=== PATIENT | female | born 1990 | race African-American/Black ===

== ENCOUNTER 2017-07-02 14:35 | Emergency (ER) | payer OTHER ==
[2017-07-02 15:01] VITALS: RESP 20
--- NOTE | 2017-07-02 15:31 | XR ---
EXAMINATION TYPE: XR chest 2V DATE OF EXAM: 07/02/2017 COMPARISON: 08/28/2015 TECHNIQUE: PA and lateral views submitted. HISTORY: Pain, cough and congestion FINDINGS: The lungs are clear and there is no pneumothorax, pleural effusion, or focal pneumonia. No overt fa ilure. Mild hypertrophic change of the spine. IMPRESSION: 1. No acute process.
[2017-07-02] MEDS ORDERED: IPRATROPIUM-ALBUTEROL 3 ML NEB INHALATION STA (15:41)
[2017-07-02] MEDS ORDERED: predniSONE 50 MG TAB PO STA (15:41)
[2017-07-02] MEDS ORDERED: LEVOFLOXACIN 500 MG TAB PO STA (15:41)
--- NOTE | 2017-07-02 16:00 | ED ---
URI HPI - General Chief Complaint: Upper Respiratory Infection Stated Complaint: ENT Time Seen by Provider: 07/02/17 14:49 Source: patient, RN notes reviewed, old records reviewed Mode of arrival: ambulatory Limitations: no limitations - History of Present Illness Initial Comments: This patient Is a 26-year-old female presents to the emergency department with cough and congestion sore throat for the past week. She was seen last Sunday at [facility]. She was placed on steroids at that time and inhaler. She reports that she was not getting any better. She took her last steroid yesterday. Patient states that she is having a persistent cough but is not able to bring anything up. She denies any recent fever or chills.She denies any nausea or vomiting. She was off of work for the past few days and return to work and they said her here for further evaluation. - Related Data Previous Rx's Medication Instructions Recorded Azithromycin [Zithromax Z-pack] 250 mg PO DIRECTED #6 tab 07/02/17 guaiFENesin-DM 600/30MG [Mucinex 1 each PO DAILY #20 tab.er.12h 07/02/17 Dm] predniSONE 50 mg PO DAILY #5 tablet 07/02/17 Allergies Allergy/AdvReac Type Severity Reaction Status Date / Time No Known Allergies Allergy Verified 07/02/17 14:54 Review of Systems ROS Statement: Those systems with pertinent positive or pertinent negative responses have been documented in the HPI. ROS Other: All systems not noted in ROS Statement are negative. Past Medical History Past Medical History: No Reported History History of Any Multi-Drug Resistant Organisms: None Reported Past Surgical History: Section Past Anesthesia/Blood Transfusion Reactions: No Reported Reaction Past Psychological History: No Psychological Hx Reported Smoking Status: Never smoker Past Alcohol Use History: Occasional Past Drug Use History: None Reported - Past Family History Father Family Medical History: No Reported History General Exam - General Exam Comments Initial Comments: This is a 26 year old female, no distress. Limitations: no limitations General appearance: alert, in no apparent distress Head exam: Present: atraumatic, normocephalic, normal inspection Eye exam: Present: normal appearance, PERRL, EOMI. Absent: scleral icterus, conjunctival injection, periorbital swelling ENT exam: Present: normal exam, mucous membranes moist. Absent: normal oropharynx (erythema) Neck exam: Present: normal inspection. Absent: tenderness, meningismus, lymphadenopathy Respiratory exam: Present: wheezes. Absent: normal lung sounds bilaterally, respiratory distress, rales, rhonchi, stridor Cardiovascular Exam: Present: regular rate, normal rhythm, normal heart sounds. Absent: systolic murmur, diastolic murmur, rubs, gallop, clicks GI/Abdominal exam: Present: soft, normal bowel sounds. Absent: distended, tenderness, guarding, rebound, rigid Back exam: Present: normal inspection Neurological exam: Present: alert, oriented X3, CN II-XII intact Psychiatric exam: Present: normal affect, normal mood Skin exam: Present: warm, dry, intact, normal color. Absent: rash Course Vital Signs 07/02/17 07/02/17 07/02/17 14:37 15:00 15:58 Temperature 98.3 F Pulse Rate 98 80 Respiratory 18 20 Rate Blood Pressure 145/84 O2 Sat by Pulse 98 Oximetry 07/02/17 07/02/17 16:08 16:33 Temperature 97.8 F Pulse Rate 80 107 H Respiratory 20 Rate Blood Pressure 150/82 O2 Sat by Pulse 94 L Oximetry Medical Decision Making - Medical Decision Making This patient is a 26-year-old female presents to the [facility] see department you can plan a cough. She recently finished a Medrol Dosepak. She's continuing to reason has a sore throat dude or coughing. Patient's chest x-ray was her view to normal. She was given breathing treatments in the emergency department with improvement of her wheezing. Patient will be started on Zpak for bronchitis and more steroids. Discussed she has to follow up with primary care provider. - Lab Data Lab Results 07/02/17 Range/Units 15:10 Group A Strep Rapid Negative (Negative) - Radiology Data Radiology results: report reviewed Chest x-rays were reviewed and negative for any acute process. Disposition Clinical Impression: Bronchitis Disposition: HOME SELF-CARE Condition: Good Instructions: Acute Bronchitis (ED) Additional Instructions: Patient advised to follow-up with primary care provider. Take the medication and antibiotics as prescribed. Return to emergency department if any alarming signs or symptoms occur. Prescriptions: Azithromycin [Zithromax Z-pack] 250 mg PO DIRECTED #6 tab guaiFENesin-DM 600/30MG [Mucinex Dm] 1 each PO DAILY #20 tab.er.12h predniSONE 50 mg PO DAILY #5 tablet Referrals: Taras Ratliff Jr, [Primary Care Provider] - 1-2 days Time of Disposition: 16:03
[2017-07-02 16:36] VITALS: BP 150/82; PULSE 107; TEMP 97.8
== END 2017-07-02 16:35 | disposition home or self-care (01) ==
LOC: EC 14:35
DX: J40 Bronchitis, not specified as acute or chronic (principal)
CPT/HCPCS: 99284; 94640; 87081; 87430; 71046; J7512

== ENCOUNTER 2017-11-05 19:39 | Emergency (ER) | payer OTHER ==
--- NOTE | 2017-11-05 21:49 | ED ---
Female Urogenital HPI - General Chief complaint: Urogenital Stated complaint: 6 weeks pg and spotting Time Seen by Provider: 11/05/17 21:31 Source: patient Mode of arrival: ambulatory Limitations: no limitations - History of Present Illness Initial comments: This patient is 27-year-old woman who presents to be evaluated for vaginal spotting. The patient states that she believes she is about 6 weeks now. She states she was at work this evening and noted that she had some spotting. She also has a little bit of suprapubic dull pain or pressure. It is constant. She has not noted worsening or relieving factors. MD Complaint: vaginal bleeding Onset/Timin -: hour(s) Location: suprapubic Radiation: non-radiating Severity: mild Quality: dull Consistency: constant Improves with: none Worsens with: none Patient : Yes Number of weeks : 6 Associated Symptoms: vaginal bleeding - Related Data Sexually active: Yes : 4 Para: 2 A: 1 Home Medications Medication Instructions Recorded Confirmed No Known Home Medications 11/05/17 11/05/17 Allergies Allergy/AdvReac Type Severity Reaction Status Date / Time No Known Allergies Allergy Verified 11/05/17 21:30 Review of Systems ROS Statement: Those systems with pertinent positive or pertinent negative responses have been documented in the HPI. ROS Other: All systems not noted in ROS Statement are negative. Constitutional: Denies: fever, chills Respiratory: Denies: cough, dyspnea Cardiovascular: Denies: chest pain, palpitations, edema, syncope Gastrointestinal: Reports: as per HPI, abdominal pain. Denies: nausea, vomiting Genitourinary: Reports: as per HPI, other (Vaginal spotting). Denies: dysuria, hematuria, discharge Musculoskeletal: Denies: back pain Skin: Denies: rash Hematological/Lymphatic: Denies: easy bleeding Past Medical History Past Medical History: No Reported History History of Any Multi-Drug Resistant Organisms: None Reported Past Surgical History: Section Past Anesthesia/Blood Transfusion Reactions: No Reported Reaction Past Psychological History: No Psychological Hx Reported Smoking Status: Never smoker Past Alcohol Use History: Occasional Past Drug Use History: None Reported - Past Family History Father Family Medical History: No Reported History General Exam Limitations: no limitations General appearance: alert, in no apparent distress, obese Head exam: Present: atraumatic, normocephalic Eye exam: Present: normal appearance Respiratory exam: Present: normal lung sounds bilaterally. Absent: respiratory distress, wheezes, rales, rhonchi, stridor Cardiovascular Exam: Present: regular rate, normal rhythm, normal heart sounds. Absent: systolic murmur, diastolic murmur, rubs, gallop GI/Abdominal exam: Present: soft. Absent: distended, tenderness, guarding, rebound, rigid, mass, pulsatile mass, hernia Extremities exam: Present: normal inspection, normal capillary refill. Absent: pedal edema, calf tenderness Back exam: Absent: CVA tenderness (R), CVA tenderness (L) Neurological exam: Present: alert Skin exam: Present: warm, dry, intact, normal color. Absent: rash Course Vital Signs 11/05/17 19:51 Temperature 98.3 F Pulse Rate 87 Respiratory 16 Rate Blood Pressure 135/95 O2 Sat by Pulse 99 Oximetry Medical Decision Making - Lab Data Lab Results 11/05/17 Range/Units 21:54 HCG, Quant 2551.9 mIU/mL Disposition Clinical Impression: Threatened Disposition: HOME SELF-CARE Condition: Good Instructions: Threatened Miscarriage (ED) Additional Instructions: Your hCG level today was 2551. As we discussed follow-up to have this rechecked. If there is any difficulty return here. Is patient prescribed a controlled substance at d/c from ED?: No Referrals: Taras Ratliff Jr, DO [Primary Care Provider] - 1-2 days Surinder West MD [STAFF PHYSICIAN] - 1-2 days
--- NOTE | 2017-11-05 23:06 | US ---
EXAMINATION TYPE: Transabdominal DATE OF EXAM: 07/03/17 COMPARISON: NONE CLINICAL HISTORY: bleeding. Spotting EXAM PERFORMED: Transvaginal (TV) and Transabdominal (TA) EXAM MEASUREMENTS: GESTATIONAL AGE / DATING Physician Established: Not yet established Dates by LMP: (5 weeks/6 days) EDC: 07/02/2018 Dates by First Scan: No previous this is first scan Dates by Current Scan for: No IUP seen at this time MATERNAL ANATOMY Uterus: 8.3 x 5.2 x 6.7 cm Right Ovary: 3.6 x 2.3 x 3.0 cm Post CDS / Adnexa: wnl Presence of free fluid: no Presence of corpus luteal cyst: no GESTATION / SURVEY IUP: No IUP seen at this time findings could relate to incomplete and blood clot filling th e endometrial cavity. Beta HcG (if available): 2551.9 No IUP seen at this time. Thickened endometrium with some free fluid measuring 2.65 cm. No gestationa l sac seen. IMPRESSION: Increased echogenicity within the endometrial cavity measures 2.6 cm. It is not clear if this is endo metrial thickening.. No gestational sac. No adnexal mass. Cul-de-sac is clear. This appearance could relate to incomplete .
[2017-11-06 00:08] VITALS: BP 130/74; PULSE 82; RESP 18; TEMP 98.6
== END 2017-11-06 00:08 | disposition home or self-care (01) ==
LOC: EC 19:39
DX: O20.0 Threatened abortion (principal); Z3A.01 Less than 8 weeks gestation of pregnancy
CPT/HCPCS: 36415; 76801; 76817; 84702; 99284

== ENCOUNTER 2017-11-08 07:43 | Emergency (ER) | payer OTHER ==
[2017-11-08 07:48] VITALS: TEMP 98.8
--- NOTE | 2017-11-08 08:00 | ED ---
Female Urogenital HPI - General Chief complaint: Vaginal Bleeding Stated complaint: 6 WEEKS PREG AND SPOTTING Time Seen by Provider: 11/08/17 07:49 Source: patient, RN notes reviewed, old records reviewed Mode of arrival: ambulatory Limitations: no limitations - History of Present Illness Initial comments: Patient is 27-year-old female, Patient presents emergency department today with chief complaint of vaginal spotting. Patient states that she had some spotting 2 days ago seen in the emergency department. Possibly 6 weeks . HCG level is 2500 at time. Patient was told to come here if she continue to have some bleeding or spotting. She reports that today she woke up and had a montiel of blood occur. She states that she's had no further bleeding or spotting at this time. Patient states that she does not have an ANALYTICAL LEAD at this time. She denies any recent fevers or chills, she denies any abdominal pain, chest pain, shortness of breath. - Related Data Home Medications Medication Instructions Recorded Confirmed Pnv No.95/Ferrous Fum/Folic AC 1 tab PO DAILY 11/08/17 11/08/17 [ Multivitamin Tablet] Allergies Allergy/AdvReac Type Severity Reaction Status Date / Time No Known Allergies Allergy Verified 11/08/17 08:56 Review of Systems ROS Statement: Those systems with pertinent positive or pertinent negative responses have been documented in the HPI. ROS Other: All systems not noted in ROS Statement are negative. Past Medical History Past Medical History: No Reported History History of Any Multi-Drug Resistant Organisms: None Reported Past Surgical History: Section Additional Past Surgical History / Comment(s): c/s x2 Past Anesthesia/Blood Transfusion Reactions: No Reported Reaction Past Psychological History: No Psychological Hx Reported Smoking Status: Never smoker Past Alcohol Use History: Occasional Past Drug Use History: None Reported - Past Family History Father Family Medical History: No Reported History General Exam - General Exam Comments Initial Comments: 27-year-old female. Alert and oriented. No acute distress. Limitations: no limitations General appearance: alert, in no apparent distress Head exam: Present: atraumatic, normocephalic, normal inspection Eye exam: Present: normal appearance, PERRL, EOMI. Absent: scleral icterus, conjunctival injection, periorbital swelling ENT exam: Present: normal exam, mucous membranes moist Neck exam: Present: normal inspection. Absent: tenderness, meningismus, lymphadenopathy Respiratory exam: Present: normal lung sounds bilaterally. Absent: respiratory distress, wheezes, rales, rhonchi, stridor Cardiovascular Exam: Present: regular rate, normal rhythm, normal heart sounds. Absent: systolic murmur, diastolic murmur, rubs, gallop, clicks Extremities exam: Present: normal inspection, full ROM, normal capillary refill. Absent: tenderness, pedal edema, joint swelling, calf tenderness Back exam: Present: normal inspection Neurological exam: Present: alert, oriented X3, CN II-XII intact Psychiatric exam: Present: normal affect, normal mood Skin exam: Present: warm, dry, intact, normal color. Absent: rash Course Vital Signs 11/08/17 07:45 Temperature 98.8 F Pulse Rate 96 Respiratory 16 Rate Blood Pressure 125/89 O2 Sat by Pulse 100 Oximetry Medical Decision Making - Medical Decision Making -year-old female presents emergency department today with chief complaint of vaginal bleeding. She was seen 2 days ago. Her hCG at that time was 2500. Today we repeated 6500. She did complain of some increased bleeding today but now to slow down. She denies any pain. She has no tenderness over abdomen superior pubic area. With the hCG going up we did repeat the ultrasound today concerned with her bleeding. There is evidence of fluid collection without pole or yolk sac. Could represent early however just additional sac of an ectopic pregnancies possible. Recommend correlation with hCG. There is also a large fluid collection which was representing subchorionic hemorrhage. Recommend repeat ultrasound in 7-10 days. Patient informed of these results. I discussed everything with Dr. Bowman, recommended Patient can follow up outpatient only. Did not contact her ANALYTICAL LEAD at this time. Recommended at this time continuing pelvic rest, repeat hCG. Patient can have this hCG and follow-up with ANALYTICAL LEAD. - Lab Data Lab Results 11/08/17 11/08/17 11/08/17 Range/Units 08:00 08:00 08:30 HCG, Quant 6340.5 mIU/mL Urine Color Yellow Urine Appearance Clear (Clear) Urine pH 6.0 (5.0-8.0) Ur Specific Theodore 1.021 (1.001-1.035) Urine Protein Trace H (Negative) Urine Glucose (UA) Negative (Negative) Urine Ketones Negative (Negative) Urine Blood Moderate H (Negative) Urine Nitrite Negative (Negative) Urine Bilirubin Negative (Negative) Urine Urobilinogen <2.0 (<2.0) mg/dL Ur Leukocyte Esterase Negative (Negative) Urine RBC 2 (0-5) /hpf Urine WBC 1 (0-5) /hpf Ur Squamous Epith Cells 4 (0-4) /hpf Blood Type AB Positive Blood Type Recheck No - Radiology Data Radiology results: report reviewed Small intrauterine fluid collection polar sac. Present early . However pseudo-gestational sac of ectopic is also possible. Correlate with serum hCG is recommended. Additionally a large J-shaped heterogeneous complex fluid collection measuring larger than suspected gestational sac possibly representing subchronic hemorrhage measuring 2.9 cm. Repeat pelvic ultrasound in 7-10 days. Disposition Clinical Impression: Threatened Disposition: HOME SELF-CARE Condition: Good Instructions: Threatened Miscarriage (ED) Additional Instructions: Patient should repeat hCG levels in 2 days. I repeat an ultrasound in approximately 10 days. Return to the emergency department if any alarming signs or symptoms occur. Patient is to follow-up with PCP and ANALYTICAL LEAD. Is patient prescribed a controlled substance at d/c from ED?: No Referrals: Taras Ratliff Jr, DO [Primary Care Provider] - 1-2 days Time of Disposition: 10:23
[2017-11-08 08:41] LABS: Appearance,Urine Clear (Clear); Bilirubin,Urine Negative (Negative); Blood,Urine Moderate (Negative); Color,Urine Yellow; Glucose,Urine (UA) Negative (Negative); Ketones,Urine Negative (Negative); Leukocyte Esterase,Urine Negative (Negative); Nitrite,Urine Negative (Negative); Protein,Urine Trace (Negative); RBC,Urine 2 /hpf (0-5); Specific Gravity,Urine 1.021 (1.001-1.035); Squamous Epithelial Cell,Urine 4 /hpf (0-4); Urobilinogen,Urine <2.0 mg/dL (<2.0); WBC,Urine 1 /hpf (0-5)
--- NOTE | 2017-11-08 10:13 | US ---
EXAMINATION TYPE: Transabdominal DATE OF EXAM: 07/03/17 COMPARISON: US 3 days prior CLINICAL HISTORY: Pain. Vaginal bleeding EXAM PERFORMED: Transvaginal (TV) and Transabdominal (TA) EXAM MEASUREMENTS: GESTATIONAL AGE / DATING Physician Established: Not yet established Dates by LMP: (6 weeks/1 days) EDC: 07/03/18 Dates by First Scan: Unable to date by prior study Dates by Current Scan for: Unable to date by today's study MATERNAL ANATOMY Uterus: 8.7 x 4.9 x 5.1cm Right Ovary: 2.8 x 2.6 x 2.1cm Left Ovary: 3.5 x 1.6 x 1.5cm Post CDS / Adnexa: wnl Presence of free fluid: very small amount in cul de sac GESTATION / SURVEY IUP: No IUP seen at this time Date of LMP: 09/26/17 Beta HcG (if available): 6340 Patient of large body habitus. There is a heterogeneous area adjacent to sac measuring 2.4 x 1.9 x 2.9 cm, possible implantation hem orrhage/subchorionic hemorrhage IMPRESSION: 1. Small intramural endometrial fluid collection without pole or yolk sac. This could represent early , however pseudogestational sac of ectopic is also possible. Correlation wi th serum beta-hCG levels is recommended. Additionally there is a large adjacent heterogenous complex fluid collection measuring larger than the suspected gestational sac possibly representing a subchori onic hemorrhage (measuring up to 2.9 cm). Repeat pelvic ultrasound is recommended in 7-10 days.
[2017-11-08 10:24] VITALS: BP 139/86; PULSE 78; RESP 20
== END 2017-11-08 10:30 | disposition home or self-care (01) ==
LOC: EC 07:43
DX: O20.0 Threatened abortion (principal); Z3A.01 Less than 8 weeks gestation of pregnancy
CPT/HCPCS: 36415; 76801; 76817; 81001; 84702; 86900; 86901; 99284

== ENCOUNTER → 2017-11-10 | Outpatient (CLI) | payer OTHER | END | disposition home or self-care (01) | LOC: LABWHC1 10:14 | PROVIDERS: ATTEND Physician Assistant Medical | DX: O20.0 Threatened abortion (principal); Z3A.00 Weeks of gestation of pregnancy not specified | CPT/HCPCS: 36415; 84702 ==

== ENCOUNTER 2017-11-12 04:40 | Emergency (ER) | payer OTHER ==
[2017-11-12 04:50] VITALS: RESP 18
[2017-11-12 05:48] LABS: Basophils % (A) 0 %; Eosinophils # (A) 0.4 k/uL (0-0.7); Eosinophils % (A) 4 %; HCT 35.6 % (34.0-46.0); HGB 11.4 gm/dL (11.4-16.0); Lymphocytes % (A) 33 %; MCH 24.4 pg (25.0-35.0); MCHC 31.9 g/dL (31.0-37.0); MCV 76.3 fL (80.0-100.0); Mean Platelet Volume 8.5; Microcytosis Slight; Monocytes # (A) 0.6 k/uL (0-1.0); Monocytes % (A) 7 %; Neutrophils # (A) 4.9 k/uL (1.3-7.7); Neutrophils % (A) 54 %; Platelet Count 306 k/uL (150-450); RBC 4.66 m/uL (3.80-5.40); RDW 15.6 % (11.5-15.5); WBC 9.1 k/uL (3.8-10.6)
[2017-11-12 05:59] LABS: ALT 32 U/L (9-52); AST 28 U/L (14-36); Albumin 3.6 g/dL (3.5-5.0); Alkaline Phosphatase 42 U/L (38-126); Anion Gap 9 mmol/L; Blood Urea Nitrogen 8 mg/dL (7-17); Calcium 9.1 mg/dL (8.4-10.2); Carbon Dioxide 18 mmol/L (22-30); Chloride 111 mmol/L (98-107); Glucose 128 mg/dL (74-99); Sodium 138 mmol/L (137-145); Total Bilirubin 0.3 mg/dL (0.2-1.3); Total Protein 6.6 g/dL (6.3-8.2)
[2017-11-12 06:05] LABS: Potassium 4.5 mmol/L (3.5-5.1)
--- NOTE | 2017-11-12 06:06 | US ---
DATE OF EXAM: 07/03/17 COMPARISON: US 2017 CLINICAL HISTORY: pain. Spotting again today EXAM PERFORMED: Transvaginal (TV) and Transabdominal (TA) EXAM MEASUREMENTS: GESTATIONAL AGE / DATING Physician Established: Not established yet Dates by LMP: (6 weeks/5 days) EDC: 07/03/2018 Dates by First Scan: Unable to date Dates by Current Scan for: By gestational sac (5 weeks/2 days) EDC: 07/13/2018 MATERNAL ANATOMY Uterus: 9.2 x 4.4 x 6.2cm, anteverted Right Ovary: 3.8 x 2.1 x 2.2 cm Left Ovary: 3.6 x 1.9 x 2.0 cm Post CDS / Adnexa: small amount of free fluid seen in posterior cul de sac Presence of free fluid: yes Presence of corpus luteal cyst: not seen Presence of subchorionic bleed: 3.8 x 1.4 x 2.9 cm complex area adjacent to gestational sac, possible subchorionic bleed GESTATION / SURVEY No pole seen at this time MSD: 1.1cm (5 weeks/2 days) Yolk Sac (normal less than 6mm): 3.4mm Date of LMP: 09/26/2017 Beta HcG (if available): Not available at time of exam IMPRESSION: 1. Gestation sac and yolk sac with an estimated gestation age of 5 weeks and 2 days. No pole likely secondary to early gestation. 2. Small subchorionic hemorrhage.
[2017-11-12 06:18] LABS: Appearance,Urine Clear (Clear); Bilirubin,Urine Negative (Negative); Blood,Urine Moderate (Negative); Color,Urine Yellow; Glucose,Urine (UA) Negative (Negative); Ketones,Urine Negative (Negative); Leukocyte Esterase,Urine Negative (Negative); Mucus,Urine Rare /hpf; Nitrite,Urine Negative (Negative); Protein,Urine Negative (Negative); RBC,Urine <1 /hpf (0-5); Specific Gravity,Urine 1.018 (1.001-1.035); Squamous Epithelial Cell,Urine 1 /hpf (0-4); Urobilinogen,Urine <2.0 mg/dL (<2.0); WBC,Urine 1 /hpf (0-5)
--- NOTE | 2017-11-12 06:40 | ED ---
General Adult HPI - General Chief complaint: Vaginal Bleeding Stated complaint: Vaginal Bleeding, 7wks pgt Time Seen by Provider: 11/12/17 04:52 Source: patient Mode of arrival: ambulatory Limitations: no limitations - History of Present Illness Initial comments: Joanna is a female at approximately 7 weeks gestation based on last menstrual period who presents to the emergency department today for evaluation of vaginal bleeding. Patient reports that she developed some spotting without any cramping or pelvic discomfort last week, she was valuate in the emergency department where ultrasound revealed a gestational sac with no pole noted. This was related to very early gestation. Patient followed up for repeat beta hCG on Sunday and noted that her hCG was increasing appropriately. Patient reports that this morning she had passed a large clot prompted her to come to the ER for reevaluation. Patient denies any chest pain, palpitations, lightheadedness. She has no known bleeding disorder. - Related Data Home Medications Medication Instructions Recorded Confirmed Pnv No.95/Ferrous Fum/Folic AC 1 tab PO DAILY 11/08/17 11/08/17 [ Multivitamin Tablet] Allergies Allergy/AdvReac Type Severity Reaction Status Date / Time No Known Allergies Allergy Verified 11/12/17 04:50 Review of Systems ROS Statement: Those systems with pertinent positive or pertinent negative responses have been documented in the HPI. ROS Other: All systems not noted in ROS Statement are negative. Past Medical History Past Medical History: No Reported History History of Any Multi-Drug Resistant Organisms: None Reported Past Surgical History: Section Additional Past Surgical History / Comment(s): c/s x2 Past Anesthesia/Blood Transfusion Reactions: No Reported Reaction Past Psychological History: No Psychological Hx Reported Smoking Status: Never smoker Past Alcohol Use History: Occasional Past Drug Use History: None Reported - Past Family History Father Family Medical History: No Reported History General Exam Limitations: no limitations General appearance: alert, in no apparent distress Head exam: Present: atraumatic, normocephalic Eye exam: Present: normal appearance, PERRL ENT exam: Present: normal exam Neck exam: Present: normal inspection Respiratory exam: Absent: respiratory distress, wheezes Cardiovascular Exam: Present: regular rate GI/Abdominal exam: Present: soft, normal bowel sounds. Absent: distended, tenderness, guarding, rebound, rigid Rectal exam: Present: deferred External exam: Present: normal external exam Speculum exam: Present: vaginal bleeding (Dark blood at the cervical os, cervical os is closed). Absent: vaginal discharge, foreign body, tissue, laceration Extremities exam: Present: normal inspection, full ROM. Absent: pedal edema Neurological exam: Present: alert, oriented X3 Psychiatric exam: Present: normal affect, normal mood Skin exam: Present: warm, dry, intact Course Vital Signs 11/12/17 11/12/17 04:47 07:01 Temperature 98.6 F 98 F Pulse Rate 85 81 Respiratory 18 18 Rate Blood Pressure 114/75 107/58 O2 Sat by Pulse 100 98 Oximetry Medical Decision Making - Medical Decision Making Patient was seen and evaluated, labs and imaging were ordered Labs are unremarkable Urinalysis and no evidence of urinary tract infection Ultrasound reveals a single intrauterine gestational sac with a pole at about 5 weeks gestation HCG is increasing appropriately I discussed with the patient the importance of pelvic rest. Follow up with OB. Return to the ED if she develops any significant vaginal bleeding, soaking more than 1 pad an hour for 3 consecutive hours. Passes any large clots or has any significant pain or develops any chest pain, palpitations, lightheadedness feeling like she is given a pass out or any new or concerning symptoms. All questions pertaining care were answered the best my ability patient discharged home - Lab Data Result diagrams: 11/12/17 05:30 11/12/17 05:30 Lab Results 11/12/17 11/12/17 11/12/17 Range/Units 05:30 05:30 05:40 WBC 9.1 (3.8-10.6) k/uL RBC 4.66 (3.80-5.40) m/uL Hgb 11.4 (11.4-16.0) gm/dL Hct 35.6 (34.0-46.0) % MCV 76.3 L (80.0-100.0) fL MCH 24.4 L (25.0-35.0) pg MCHC 31.9 (31.0-37.0) g/dL RDW 15.6 H (11.5-15.5) % Plt Count 306 (150-450) k/uL Neutrophils % 54 % Lymphocytes % 33 % Monocytes % 7 % Eosinophils % 4 % Basophils % 0 % Neutrophils # 4.9 (1.3-7.7) k/uL Lymphocytes # 3.0 (1.0-4.8) k/uL Monocytes # 0.6 (0-1.0) k/uL Eosinophils # 0.4 (0-0.7) k/uL Basophils # 0.0 (0-0.2) k/uL Microcytosis Slight Sodium 138 (137-145) mmol/L Potassium 4.5 (3.5-5.1) mmol/L Chloride 111 H (98-107) mmol/L Carbon Dioxide 18 L (22-30) mmol/L Anion Gap 9 mmol/L BUN 8 (7-17) mg/dL Creatinine 0.60 (0.52-1.04) mg/dL Est GFR (CKD-EPI)AfAm >90 (>60 ml/min/1.73 sqM) Est GFR (CKD-EPI)NonAf >90 (>60 ml/min/1.73 sqM) Glucose 128 H (74-99) mg/dL Calcium 9.1 (8.4-10.2) mg/dL Total Bilirubin 0.3 (0.2-1.3) mg/dL AST 28 (14-36) U/L ALT 32 (9-52) U/L Alkaline Phosphatase 42 (38-126) U/L Total Protein 6.6 (6.3-8.2) g/dL Albumin 3.6 (3.5-5.0) g/dL HCG, Quant 62370.7 mIU/mL Urine Color Yellow Urine Appearance Clear (Clear) Urine pH 6.0 (5.0-8.0) Ur Specific [place] 1.018 (1.001-1.035) Urine Protein Negative (Negative) Urine Glucose (UA) Negative (Negative) Urine Ketones Negative (Negative) Urine Blood Moderate H (Negative) Urine Nitrite Negative (Negative) Urine Bilirubin Negative (Negative) Urine Urobilinogen <2.0 (<2.0) mg/dL Ur Leukocyte Esterase Negative (Negative) Urine RBC <1 (0-5) /hpf Urine WBC 1 (0-5) /hpf Ur Squamous Epith Cells 1 (0-4) /hpf Urine Mucus Rare H (None) /hpf Disposition Clinical Impression: Vaginal bleeding in patient at less than 20 weeks gestation Disposition: HOME SELF-CARE Condition: Good Instructions: Threatened Miscarriage (ED) Additional Instructions: Into new pelvic rest until you follow up with OB Is patient prescribed a controlled substance at d/c from ED?: No Referrals: Taras Ratliff Jr, DO [Primary Care Provider] - 1-2 days Johanne Archer DO [Doctor of Osteopathic Medicine] - 1-2 days Time of Disposition: 06:42
[2017-11-12 07:00] LABS: HCG,Quantitative Serum 17253.7 mIU/mL
[2017-11-12 07:02] VITALS: BP 107/58; PULSE 81; TEMP 98
== END 2017-11-12 07:01 | disposition home or self-care (01) ==
LOC: EC 04:40
DX: O20.9 Hemorrhage in early pregnancy, unspecified (principal); Z3A.01 Less than 8 weeks gestation of pregnancy; Z98.890 Other specified postprocedural states
CPT/HCPCS: 36415; 76801; 76817; 80053; 81001; 84702; 85025; 87086; 99284

== ENCOUNTER → 2017-11-20 | Outpatient (CLI) | payer OTHER ==
--- NOTE | 2017-11-20 17:53 | US ---
EXAMINATION TYPE: Transabdominal DATE OF EXAM: 07/03/17 COMPARISON: US dated 11/12/2017 CLINICAL HISTORY: Z36 FOLLOW UP PREV ABN ULTRASOUND. EXAM PERFORMED: Transvaginal (TV) and Transabdominal (TA), endovaginal ultrasound scanning performed for better evaluation of the uterus EXAM MEASUREMENTS: GESTATIONAL AGE / DATING Physician Established: Not yet established Dates by LMP: LMP unknown Dates by First Scan: unable to date by previous studies Dates by Current Scan for: 0.6 ( 6 weeks/3 days) EDC: 07/13/17 MATERNAL ANATOMY Uterus: 10.0 x 5.3 x 6.4cm Right Ovary: Not visualized Left Ovary: Not visualized Post CDS / Adnexa: wnl Presence of free fluid: no Presence of subchorionic bleed: 3.2 x 2.5 x 2.0 previously 3.8 x 1.4 x 3 cm GESTATION / SURVEY CRL: 0.6 ( 6 weeks/3 days) Yolk Sac (normal less than 6mm): Heart Rate: 171 bpm Rhythm: Normal IUP: Viable IUP Nuchal Translucency 10-14wks (normal less than 3mm): 2mm Beta HcG (if available): Not available at this time Patient of large body habitus. IMPRESSION: Measurements of the subchorionic hemorrhage are slightly reduced in size compared to previous exam al though there are differences in technique. Single viable intrauterine corresponding to ultr asound age 6 weeks 3 days with estimated date of delivery 07/13/2017 by today's exam.
== END ==
LOC: RADUSWWP 15:02
PROVIDERS: ATTEND Obstetrics & Gynecology
DX: O28.3 Abnormal ultrasonic finding on antenatal screening of mother (principal); Z3A.01 Less than 8 weeks gestation of pregnancy
CPT/HCPCS: 76801; 76817

== ENCOUNTER 2018-06-02 20:20 | Outpatient (CLI) | payer OTHER ==
[2018-06-02 21:21] LABS: Amorphous Sediment,Urine Occasional /hpf; Appearance,Urine Cloudy (Clear); Bilirubin,Urine Negative (Negative); Blood,Urine Negative (Negative); Color,Urine Yellow; Glucose,Urine (UA) Negative (Negative); Hyaline Casts,Urine 1 /lpf (0-2); Ketones,Urine Trace (Negative); Leukocyte Esterase,Urine Negative (Negative); Mucus,Urine Rare /hpf; Nitrite,Urine Negative (Negative); PH, Urine 6.5 (5.0-8.0); Protein,Urine 2+ (Negative); RBC,Urine 1 /hpf (0-5); Specific Gravity,Urine 1.012 (1.001-1.035); Squamous Epithelial Cell,Urine 3 /hpf (0-4); Urobilinogen,Urine <2.0 mg/dL (<2.0); WBC,Urine 2 /hpf (0-5)
[2018-06-02 21:22] LABS: ALT 35 U/L (9-52); AST 37 U/L (14-36); Blood Urea Nitrogen 7 mg/dL (7-17); LDH 412 U/L (313-618); Uric Acid 6.2 mg/dL (3.7-7.4)
[2018-06-02 21:32] LABS: Anisocytosis Slight; Basophils % (A) 0 %; Eosinophils # (A) 0.1 k/uL (0-0.7); Eosinophils % (A) 1 %; HCT 34.6 % (34.0-46.0); HGB 10.8 gm/dL (11.4-16.0); Hypochromasia Marked; Lymphocytes # (A) 2.8 k/uL (1.0-4.8); Lymphocytes % (A) 37 %; MCH 22.7 pg (25.0-35.0); MCHC 31.2 g/dL (31.0-37.0); MCV 72.8 fL (80.0-100.0); Microcytosis Moderate; Monocytes # (A) 0.5 k/uL (0-1.0); Monocytes % (A) 6 %; Neutrophils # (A) 4.1 k/uL (1.3-7.7); Neutrophils % (A) 54 %; Platelet Count 204 k/uL (150-450); Poikilocytosis Slight; RBC 4.75 m/uL (3.80-5.40); RDW 16.3 % (11.5-15.5); WBC 7.6 k/uL (3.8-10.6)
[2018-06-02 22:19] VITALS: PULSE 80; RESP 16; TEMP 96.6
[2018-06-02 22:22] VITALS: BP 126/73
--- NOTE | 2018-06-06 19:16 | P.MSEPDOC ---
Presenting Problems - Arrival Data Date of Arrival on Unit: 06/02/18 Time of Arrival on Unit: 20:20 Mode of Transport: Ambulatory - Complaint OB-Reason for Admission/Chief Complaint: Pain Comment: Patient states she is having constant pain 5/10 in her vaginal area since 1500. Medical History - Information : 4 Para: 3 Term: 3 : 0 Abortions: Spontaneous or Elective: 0 Number of Living Children: 3 - Gestational Age Gestational Age by KADIE (wks/days): 35 Weeks and 4 Days - History Complications: GDM Review of Systems - Review of Systems Constitutional: No problems Breast: No problems ENT: No problems Cardiovascular: No problems Respiratory: No problems Gastrointestinal: No problems Genitourinary: No problems Musculoskeletal: No problems Neurological: No problems Skin: No problems Vital Signs - Temperature Temperature: 96.6 F Temperature Source: Temporal Artery Scan - Pulse Right Brachial Pulse Rate: 80 Pulse Assessment Method: Automatic Cuff - Respirations Respiratory Rate: 16 Oxygen Delivery Method: Room Air O2 Sat by Pulse Oximetry: 100 - Blood Pressure Right Arm Blood Pressure: 126/73 Blood Pressure Mean: 90 Blood Pressure Source: Automatic Cuff Medical Screen Scoring (Pre) - Cervical Exam Dilation: 0 cm = 0 Membranes: Intact - Uterine Contractions Frequency: N/A Duration: N/A Intensity: N/A - Maternal Vital Signs Maternal Temperature: N/A Maternal Blood Pressure: Systolic >139 = 2 Signs of Preeclampsia: N/A Maternal Respirations: N/A - Pain Assessment Pain Location and Character: Perineal Pain Scale Used: Numeric (1 - 10) Pain Intensity: 5 Pain Management Goal: 0 Pain Description: *Acute, Stabbing Pain Radiation Location: NONE Pain Frequency: Constant Pain Duration: 6 Pain Duration Units: Hours Pain Behavior: None Exhibited Pain Aggravating Factors: None - Assessment Baseline FHR: 140 Heart Rate - NICHD Category: Category I (Normal) = 0 NST: Reactive - Total Score Total Score (Pre): 2 - Level of Risk Level of Risk: Low (0-5) Physician Notification (Pre) - Physician Notified Physician Notified Date: 06/02/18 Physician Notified Time: 20:49 Physician/Practitioner Notifed:: Dr. Le Spoke With: Dr. Le New Order Received: Yes - Notification Comment Comment: H labs drawn and results read to Dr. Le. Patient to be discharged with instructions to keep followup appt with Dr. Levine 06/03/18 and MIKE 06/04/18. RN to give discharge instructions with emphasis on pre-eclampsia warning signs. Patient verbalizes understanding. Medical Screen Scoring (Post) - Cervical Exam Dilation: 0 cm = 0 Membranes: Intact - Uterine Contractions Frequency: N/A - Maternal Vital Signs Maternal Temperature: N/A Maternal Blood Pressure: N/A Signs of Preeclampsia: N/A Maternal Respirations: N/A - Pain Assessment Pain Location and Character: Perineal Pain Scale Used: Numeric (1 - 10) Pain Intensity: 5 Pain Management Goal: 0 Pain Description: Stabbing Pain Radiation Location: NONE Pain Frequency: Constant Pain Duration: 6 Pain Duration Units: Hours Pain Behavior: None Exhibited - Assessment Heart Rate: 135 Heart Rate - NICHD Category: Category I (Normal) = 0 NST: Reactive - Total Score Total Score (Post): 0 - Post Treatment Level of Risk Post Treatment Level of Risk: Low (0-5) Physician Notification (Post) - Physician Notified Physician Notified Date: 06/02/18 Physician Notified Time: 22:09 Physician/Practitioner Notified:: Dr. Le Spoke With: Dr. Le New Order Received: Yes - Notification Comment Comment: Discharge order Disposition - Disposition OB Disposition: Discharge to home Discharge Date: 06/02/18 Discharge Time: 21:58 I agree with the RN Medical Screening Exam: Yes Risk & Benefit of care provided described in d/c instruction: Yes Diagnosis: PELVIC AND PERINEAL PAIN
== END 2018-06-02 21:58 | disposition home or self-care (01) ==
LOC: FBPOP 20:20
PROVIDERS: ATTEND Obstetrics & Gynecology
DX: O99.89 Other specified diseases and conditions complicating pregnancy, childbirth and the puerperium (principal); R10.2 Pelvic and perineal pain; Z3A.35 35 weeks gestation of pregnancy
CPT/HCPCS: 59025; 82570; 84156; 82565; 83615; 84450; 84460; 84520; 84550; 85025; 81001; G0463; 99213

== ENCOUNTER 2018-06-25 12:22 | Emergency (ER) | payer OTHER ==
--- NOTE | 2018-06-25 12:56 | ED ---
General Adult HPI - General Chief complaint: Skin/Abscess/Foreign Body Stated complaint: Lump on arm from IV Time Seen by Provider: 06/25/18 12:34 Source: patient, RN notes reviewed Mode of arrival: ambulatory Limitations: no limitations - History of Present Illness Initial comments: Patient is a pleasant 27-year-old female presenting to the emergency Department with complaints of left arm discomfort. Onset of symptoms was the past day or 2. Patient states there may have been some mild symptoms prior to this. Patient states she did have an IV in this area proximal to 3 weeks ago. Patient was in the hospital at that time for . Patient denies any upper extremity problems. Area of involvement is mostly distal to the IV site. Patient states there is mild discomfort and mild swelling. No warmth or color change. No fevers. No history of similar symptoms previously. No abdominal or pelvic pain. - Related Data Home Medications Medication Instructions Recorded Confirmed No Known Home Medications 06/25/18 06/25/18 Allergies Allergy/AdvReac Type Severity Reaction Status Date / Time No Known Allergies Allergy Verified 06/25/18 13:19 Review of Systems ROS Statement: Those systems with pertinent positive or pertinent negative responses have been documented in the HPI. ROS Other: All systems not noted in ROS Statement are negative. Constitutional: Denies: fever, chills Eyes: Denies: eye pain ENT: Denies: ear pain Respiratory: Denies: cough, dyspnea Cardiovascular: Denies: chest pain Endocrine: Denies: fatigue Gastrointestinal: Denies: abdominal pain Genitourinary: Denies: dysuria Musculoskeletal: Denies: back pain Skin: Denies: rash Neurological: Denies: weakness Past Medical History Past Medical History: No Reported History Additional Past Medical History / Comment(s): pre eclampsia and gestational diabetes History of Any Multi-Drug Resistant Organisms: None Reported Past Surgical History: Section Additional Past Surgical History / Comment(s): c/s x2 Past Anesthesia/Blood Transfusion Reactions: No Reported Reaction Past Psychological History: No Psychological Hx Reported Smoking Status: Never smoker Past Alcohol Use History: None Reported Past Drug Use History: None Reported - Past Family History Father Family Medical History: No Reported History General Exam Limitations: no limitations General appearance: alert, in no apparent distress Head exam: Present: atraumatic Eye exam: Present: normal appearance, PERRL ENT exam: Present: normal oropharynx Neck exam: Present: normal inspection Respiratory exam: Present: normal lung sounds bilaterally Cardiovascular Exam: Present: regular rate, normal rhythm Expanded Peripheral pulses: 2+: Radial (L) GI/Abdominal exam: Present: soft. Absent: tenderness Extremities exam: Present: other (Left distal arm dorsal radius region with approximately 2 x 2 centimeter area of mild swelling and mild tenderness. No erythema. No warmth. Site of previous IV is proximal to this. There may be mild superficial thrombosis in this region as well.). Absent: pedal edema, calf tenderness Neurological exam: Present: alert Psychiatric exam: Present: normal affect, normal mood Skin exam: Present: normal color. Absent: rash Course Vital Signs 06/25/18 12:28 Temperature 98.6 F Pulse Rate 88 Respiratory 18 Rate Blood Pressure 126/86 O2 Sat by Pulse 100 Oximetry Medical Decision Making - Medical Decision Making Patient reevaluated and updated - Radiology Data Radiology results: report reviewed (Ultrasound negative for DVT. There is superficial thrombophlebitis.) Disposition Clinical Impression: Superficial thrombophlebitis Disposition: HOME SELF-CARE Condition: Stable Instructions (If sedation given, give patient instructions): Superficial Thrombophlebitis (ED) Additional Instructions: Warm compresses. Please follow-up with primary care physician in the next couple days for recheck. If symptoms continue consider vascular surgery consul t. Return for arm pain or arm swelling, chest pain or shortness of breath, redness, worsening or changing symptoms or other concerns. Is patient prescribed a controlled substance at d/c from ED?: No Referrals: Taras Ratliff Jr, DO [Primary Care Provider] - 1-2 days Time of Disposition: 14:55
--- NOTE | 2018-06-25 13:53 | US ---
EXAMINATION TYPE: US venous doppler duplex UE LT DATE OF EXAM: 06/25/2018 COMPARISON: NONE CLINICAL HISTORY: Pain. SIDE PERFORMED: Left Grayscale, color doppler, spectral doppler imaging performed of the deep veins of the upper extremiti es. There is normal flow, compressibility and vascular waveforms. Left Arm: Negative for DVT. IMPRESSION: No sonographic evidence of deep venous thrombosis within the left upper extremity.
--- NOTE | 2018-06-25 14:47 | US ---
EXAMINATION TYPE: US extremity nonvasc mass LT DATE OF EXAM: 06/25/2018 COMPARISON: NONE CLINICAL HISTORY: Pain. Patient has pain and swelling left anterior wrist. At this area is some superficial thrombophlebitis. IMPRESSION: Superficial thrombophlebitis. Otherwise grossly unremarkable study.
[2018-06-25 15:20] VITALS: BP 123/86; PULSE 75; RESP 16; TEMP 98.7
== END 2018-06-25 15:19 | disposition home or self-care (01) ==
LOC: EC 12:22
DX: I80.8 Phlebitis and thrombophlebitis of other sites (principal)
CPT/HCPCS: 99283

== ENCOUNTER → 2018-07-19 | Outpatient (CLI) | payer OTHER ==
[2018-07-19 17:43] LABS: Anisocytosis Slight; Basophils % (A) 0 %; Eosinophils # (A) 0.3 k/uL (0-0.7); Eosinophils % (A) 3 %; HCT 35.1 % (34.0-46.0); HGB 10.8 gm/dL (11.4-16.0); Hypochromasia Marked; Lymphocytes # (A) 3.7 k/uL (1.0-4.8); Lymphocytes % (A) 34 %; MCH 22.8 pg (25.0-35.0); MCHC 30.9 g/dL (31.0-37.0); MCV 73.9 fL (80.0-100.0); Mean Platelet Volume 8.2; Microcytosis Moderate; Monocytes # (A) 0.7 k/uL (0-1.0); Monocytes % (A) 6 %; Neutrophils % (A) 54 %; Platelet Count 331 k/uL (150-450); RBC 4.75 m/uL (3.80-5.40); RDW 16.5 % (11.5-15.5); WBC 11.1 k/uL (3.8-10.6)
== END | disposition home or self-care (01) ==
LOC: LABPAT 09:48
PROVIDERS: ATTEND Obstetrics & Gynecology
DX: Z01.812 Encounter for preprocedural laboratory examination (principal)
CPT/HCPCS: 36415; 85025

== ENCOUNTER 2018-08-12 09:22 | Emergency (ER) | payer OTHER ==
[2018-08-12 09:31] VITALS: BP 115/67; PULSE 104; RESP 20; TEMP 98.8
--- NOTE | 2018-08-12 09:59 | ED ---
Skin/Abscess/FB HPI - General Chief complaint: Skin/Abscess/Foreign Body Stated complaint: Breast pain Time Seen by Provider: 08/12/18 09:43 Source: patient, RN notes reviewed Mode of arrival: ambulatory Limitations: no limitations - History of Present Illness Initial comments: 27-year-old female presents emergency Department with chief complaint of left wrist pain. Patient states started slightly on as worse in the last 24 hours. Patient states she has redness and swelling to her left breast. She is not exposed department has been breast-feeding and has recently started using her pump more. Patient states that she's never had any like this in the past with her prior pregnancies and breast-feeding in the past. Patient reports no fevers or chills. Patient offers no other complaints. - Related Data Home Medications Medication Instructions Recorded Confirmed Ibuprofen [Motrin Ib] 200 mg PO Q6H PRN 08/12/18 08/12/18 Norethindrone [Nadine] 0.35 mg PO HS 08/12/18 08/12/18 Previous Rx's Medication Instructions Recorded Cephalexin [Keflex] 500 mg PO Q6HR #28 cap 08/12/18 Allergies Allergy/AdvReac Type Severity Reaction Status Date / Time No Known Allergies Allergy Verified 08/12/18 09:46 Review of Systems ROS Statement: Those systems with pertinent positive or pertinent negative responses have been documented in the HPI. ROS Other: All systems not noted in ROS Statement are negative. Past Medical History Past Medical History: No Reported History Additional Past Medical History / Comment(s): pre eclampsia and gestational diabetes History of Any Multi-Drug Resistant Organisms: None Reported Past Surgical History: Section Additional Past Surgical History / Comment(s): c/s x3 Past Anesthesia/Blood Transfusion Reactions: No Reported Reaction Past Psychological History: No Psychological Hx Reported Smoking Status: Never smoker Past Alcohol Use History: None Reported Past Drug Use History: None Reported - Past Family History Father Family Medical History: No Reported History General Exam Limitations: no limitations General appearance: alert, in no apparent distress Head exam: Present: atraumatic, normocephalic, normal inspection Neck exam: Present: normal inspection, full ROM. Absent: tenderness, meningismus, lymphadenopathy Respiratory exam: Present: normal lung sounds bilaterally. Absent: respiratory distress, wheezes, rales, rhonchi, stridor Cardiovascular Exam: Present: regular rate, normal rhythm, normal heart sounds. Absent: systolic murmur, diastolic murmur, rubs, gallop, clicks Skin exam: Present: warm, dry, intact, normal color, other (Left breast there is tenderness from the 11th o'clock to 9 o'clock position mild erythema and warmth no discrete mass noted). Absent: rash Course Vital Signs 08/12/18 09:28 Temperature 98.8 F Pulse Rate 104 H Respiratory 20 Rate Blood Pressure 115/67 O2 Sat by Pulse 100 Oximetry Medical Decision Making - Medical Decision Making 27-year-old female presented for left breast pain. Patient has mastitis. 2 breast feeding. There is a concern for possible staph infection will be started on Keflex and continue warm compresses, anti-inflammatories and frequent pumping or feeding Disposition Clinical Impression: Mastitis Disposition: HOME SELF-CARE Condition: Stable Instructions (If sedation given, give patient instructions): Mastitis (ED) Additional Instructions: Please return to the Emergency Department if symptoms worsen or any other concerns. Prescriptions: Cephalexin [Keflex] 500 mg PO Q6HR #28 cap Is patient prescribed a controlled substance at d/c from ED?: No Referrals: Taras Ratliff Jr, [Primary Care Provider] - 1-2 days Time of Disposition: 09:58
== END 2018-08-12 10:10 | disposition home or self-care (01) ==
LOC: EC 09:22
DX: N61.0 Mastitis without abscess (principal); Z79.3 Long term (current) use of hormonal contraceptives
CPT/HCPCS: 99283

== ENCOUNTER 2019-03-19 08:31 | Emergency (ER) | payer OTHER ==
[2019-03-19] MEDS ORDERED: ONDANSETRON 4 MG/2 ML VIAL IVP STA (08:49)
[2019-03-19] MEDS ORDERED: SODIUM CHLORIDE 0.9% 2,000 ML IV STA (08:49)
[2019-03-19 09:57] LABS: Basophils # (A) 0.2 k/uL (0-0.2); Basophils % (A) 2 %; Eosinophils # (A) 0.1 k/uL (0-0.7); Eosinophils % (A) 1 %; HGB 12.1 gm/dL (11.4-16.0); Lymphocytes # (A) 0.8 k/uL (1.0-4.8); Lymphocytes % (A) 10 %; MCH 25.6 pg (25.0-35.0); MCHC 31.8 g/dL (31.0-37.0); MCV 80.7 fL (80.0-100.0); Mean Platelet Volume 8.6; Monocytes # (A) 0.3 k/uL (0-1.0); Monocytes % (A) 4 %; Neutrophils # (A) 6.8 k/uL (1.3-7.7); Neutrophils % (A) 82 %; Platelet Count 266 k/uL (150-450); RBC 4.71 m/uL (3.80-5.40); RDW 14.4 % (11.5-15.5); WBC 8.3 k/uL (3.8-10.6)
--- NOTE | 2019-03-19 10:04 | XR ---
EXAMINATION TYPE: XR chest 2V DATE OF EXAM: 03/19/2019 COMPARISON: Chest x-ray July 02, 2017. HISTORY: Persistent cough. TECHNIQUE: Frontal and lateral views of the chest are obtained. FINDINGS: There is no focal air space opacity, pleural effusion, or pneumothorax seen. The cardiac silhouette size is within normal limits. The osseous structures are intact. IMPRESSION: No suspicious acute pulmonary process.
[2019-03-19 10:07] LABS: Albumin 3.7 g/dL (3.5-5.0); Calcium 8.9 mg/dL (8.4-10.2); Potassium 3.9 mmol/L (3.5-5.1); Total Bilirubin 0.7 mg/dL (0.2-1.3); Total Protein 7.1 g/dL (6.3-8.2)
[2019-03-19] MEDS ORDERED: IPRATROPIUM-ALBUTEROL 3 ML NEB INHALATION STA (10:36)
[2019-03-19] MEDS ORDERED: IBUPROFEN 600 MG TAB PO STA (10:36)
[2019-03-19 11:20] LABS: Appearance,Urine Clear (Clear); Bilirubin,Urine Negative (Negative); Blood,Urine Negative (Negative); Color,Urine Light Yellow; Glucose,Urine (UA) Negative (Negative); Ketones,Urine Negative (Negative); Leukocyte Esterase,Urine Negative (Negative); Nitrite,Urine Negative (Negative); PH, Urine 6.5 (5.0-8.0); Protein,Urine Negative (Negative); Specific Gravity,Urine 1.008 (1.001-1.035); Urobilinogen,Urine <2.0 mg/dL (<2.0)
[2019-03-19] MEDS ORDERED: cefTRIAXone IN SWFI 1,000 MG/10 ML SYRINGE IVP STA (11:25)
--- NOTE | 2019-03-19 11:27 | ED ---
Nausea/Vomiting/Diarrhea HPI - General Chief complaint: Nausea/Vomiting/Diarrhea Stated complaint: fever, cough, diarrhea Time Seen by Provider: 03/19/19 08:35 Source: patient Mode of arrival: ambulatory Limitations: no limitations - History of Present Illness Initial comments: The patient is a 28-year-old female with no past nuchal history who presents to the emergency room with reported nausea vomiting and diarrhea. She reports that her symptoms started last night. She had nausea with multiple episodes of nonbilious nonbloody vomiting. States that she cannot hold down any water. She also had multiple episodes of nonbilious, nonbloody diarrhea. Denies any recent antibiotic use or travel. Denies hematochezia or melanotic stools. No fevers or chills. 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 She is familiar with C. diff and states that she has no foul-smelling diarrhea. No contact with any patients with C. diff. She denies any abdominal pain. No abnormal vaginal bleeding or discharge. No concern for . Denies any dysuria, hematuria or difficulty voiding. Patient does admit to chills. She has had a nonproductive cough with wheezing. The symptoms have been present for the past 3 days. She has not taken any medications at home for her symptoms. She denies any headaches or visual changes. No chest pain or shortness of breath. Denies any back or flank pain. There are no alleviating, precipitating or modifying fac tors - Related Data Home Medications Medication Instructions Recorded Confirmed Norethindrone-E.estradiol-Iron 1 tab PO HS 03/19/19 03/19/19 [Loestrin Fe 1-20 Tablet] Previous Rx's Medication Instructions Recorded Albuterol Sulfate [Proair Hfa] 1 - 2 puff INHALATION Q4HR PRN #1 03/19/19 inhaler Azithromycin [Zithromax Z-pack] 250 mg PO DIRECTED #1 pack 03/19/19 Ondansetron Odt [Zofran Odt] 4 mg PO Q8HR PRN #15 tab 03/19/19 Allergies Allergy/AdvReac Type Severity Reaction Status Date / Time No Known Allergies Allergy Verified 03/19/19 10:34 Review of Systems ROS Statement: Those systems with pertinent positive or pertinent negative responses have been documented in the HPI. ROS Other: All systems not noted in ROS Statement are negative. Past Medical History Past Medical History: No Reported History Additional Past Medical History / Comment(s): pre eclampsia and gestational diabetes History of Any Multi-Drug Resistant Organisms: None Reported Past Surgical History: Section Additional Past Surgical History / Comment(s): c/s x3 Past Anesthesia/Blood Transfusion Reactions: No Reported Reaction Past Psychological History: No Psychological Hx Reported Smoking Status: Never smoker Past Alcohol Use History: None Reported Past Drug Use History: None Reported - Past Family History Father Family Medical History: No Reported History General Exam Limitations: no limitations Course Vital Signs 03/19/19 03/19/19 03/19/19 08:34 11:01 11:11 Temperature 102.2 F H Pulse Rate 101 H 115 H 112 H Respiratory 20 Rate Blood Pressure 130/84 O2 Sat by Pulse 100 Oximetry 03/19/19 03/19/19 11:51 12:40 Temperature 101.6 F H 99.0 F Pulse Rate 115 H 92 Respiratory 16 18 Rate Blood Pressure 121/66 127/67 O2 Sat by Pulse 97 98 Oximetry Medical Decision Making - Medical Decision Making Upon arrival the patient was placed into room 14. A thorough history and physical exam was performed. Peripheral IV is established. The patient was given 2 L of normal saline and formal grams of Zofran. I did conduct laboratory studies. The patient was given a DuoNeb breathing treatment. Laboratory studies demonstrated a normal CBC. CMP shows a creatinine of 1. Glucose 107. Urinalysis shows 7 squamous epithelial cells and some moderate mucus. Influenza a and B are negative. Chest x-ray is negative for any type of infiltrate. The patient was given Motrin after a negative test. I did reevaluate the patient and she has much improvement in her symptoms. She denies any vomiting or diarrhea since she has been in the hospital. I discussed the diagnosis, differential and treatment options. At this time the patient will be discharged home with prescriptions for an inhaler and Zofran. I also provided the patient with azithromycin because of her fevers and upper respiratory symptoms. If the patient has any new or worsening symptoms she should return to the emergency room. Follow up with her PCP in 2-4 days. The patient had her vitals obtained and were much improved upon discharge. The patient was then discharged home in stable condition - Lab Data Result diagrams: 03/19/19 09:25 03/19/19 09:25 Lab Results 03/19/19 03/19/19 03/19/19 Range/Units 09:25 09:25 09:25 WBC 8.3 (3.8-10.6) k/uL RBC 4.71 (3.80-5.40) m/uL Hgb 12.1 (11.4-16.0) gm/dL Hct 38.0 (34.0-46.0) % MCV 80.7 (80.0-100.0) fL MCH 25.6 (25.0-35.0) pg MCHC 31.8 (31.0-37.0) g/dL RDW 14.4 (11.5-15.5) % Plt Count 266 (150-450) k/uL Neutrophils % 82 % Lymphocytes % 10 % Monocytes % 4 % Eosinophils % 1 % Basophils % 2 % Neutrophils # 6.8 (1.3-7.7) k/uL Lymphocytes # 0.8 L (1.0-4.8) k/uL Monocytes # 0.3 (0-1.0) k/uL Eosinophils # 0.1 (0-0.7) k/uL Basophils # 0.2 (0-0.2) k/uL Sodium 140 (137-145) mmol/L Potassium 3.9 (3.5-5.1) mmol/L Chloride 108 H (98-107) mmol/L Carbon Dioxide 22 (22-30) mmol/L Anion Gap 10 mmol/L BUN 6 L (7-17) mg/dL Creatinine 1.05 H (0.52-1.04) mg/dL Est GFR (CKD-EPI)AfAm 85 (>60 ml/min/1.73 sqM) Est GFR (CKD-EPI)NonAf 73 (>60 ml/min/1.73 sqM) Glucose 107 H (74-99) mg/dL Plasma Lactic Acid Gabino 1.5 (0.7-2.0) mmol/L Calcium 8.9 (8.4-10.2) mg/dL Total Bilirubin 0.7 (0.2-1.3) mg/dL AST 27 (14-36) U/L ALT 29 (4-34) U/L Alkaline Phosphatase 62 (38-126) U/L Total Protein 7.1 (6.3-8.2) g/dL Albumin 3.7 (3.5-5.0) g/dL Lipase 46 (23-300) U/L HCG, Qual Urine Color Urine Appearance (Clear) Urine pH (5.0-8.0) Ur Specific Aroda (1.001-1.035) Urine Protein (Negative) Urine Glucose (UA) (Negative) Urine Ketones (Negative) Urine Blood (Negative) Urine Nitrite (Negative) Urine Bilirubin (Negative) Urine Urobilinogen (<2.0) mg/dL Ur Leukocyte Esterase (Negative) Urine WBC (0-5) /hpf Ur Squamous Epith Cells (0-4) /hpf Urine Mucus (None) /hpf Influenza Type A RNA (Not Detectd) Influenza Type B (PCR) (Not Detectd) 03/19/19 03/19/19 03/19/19 Range/Units 09:25 09:30 10:58 WBC (3.8-10.6) k/uL RBC (3.80-5.40) m/uL Hgb (11.4-16.0) gm/dL Hct (34.0-46.0) % MCV (80.0-100.0) fL MCH (25.0-35.0) pg MCHC (31.0-37.0) g/dL RDW (11.5-15.5) % Plt Count (150-450) k/uL Neutrophils % % Lymphocytes % % Monocytes % % Eosinophils % % Basophils % % Neutrophils # (1.3-7.7) k/uL Lymphocytes # (1.0-4.8) k/uL Monocytes # (0-1.0) k/uL Eosinophils # (0-0.7) k/uL Basophils # (0-0.2) k/uL Sodium (137-145) mmol/L Potassium (3.5-5.1) mmol/L Chloride (98-107) mmol/L Carbon Dioxide (22-30) mmol/L Anion Gap mmol/L BUN (7-17) mg/dL Creatinine (0.52-1.04) mg/dL Est GFR (CKD-EPI)AfAm (>60 ml/min/1.73 sqM) Est GFR (CKD-EPI)NonAf (>60 ml/min/1.73 sqM) Glucose (74-99) mg/dL Plasma Lactic Acid Gabino (0.7-2.0) mmol/L Calcium (8.4-10.2) mg/dL Total Bilirubin (0.2-1.3) mg/dL AST (14-36) U/L ALT (4-34) U/L Alkaline Phosphatase (38-126) U/L Total Protein (6.3-8.2) g/dL Albumin (3.5-5.0) g/dL Lipase (23-300) U/L HCG, Qual Not Detected Urine Color Light Yellow Urine Appearance Clear (Clear) Urine pH 6.5 (5.0-8.0) Ur Specific Aroda 1.008 (1.001-1.035) Urine Protein Negative (Negative) Urine Glucose (UA) Negative (Negative) Urine Ketones Negative (Negative) Urine Blood Negative (Negative) Urine Nitrite Negative (Negative) Urine Bilirubin Negative (Negative) Urine Urobilinogen <2.0 (<2.0) mg/dL Ur Leukocyte Esterase Negative (Negative) Urine WBC 2 (0-5) /hpf Ur Squamous Epith Cells 7 H (0-4) /hpf Urine Mucus Moderate H (None) /hpf Influenza Type A RNA Not Detected (Not Detectd) Influenza Type B (PCR) Not Detected (Not Detectd) Disposition Clinical Impression: Nausea & vomiting, Dehydration, Cough, Fever Disposition: HOME SELF-CARE Condition: Stable Instructions (If sedation given, give patient instructions): Acute Nausea and Vomiting (ED) Additional Instructions: Please follow up with the PCP in 2-4 days. Return to the ED for any new or worsening symptoms. Prescriptions: Albuterol Sulfate [Proair Hfa] 1 - 2 puff INHALATION Q4HR PRN #1 inhaler PRN Reason: difficulty in breathing Azithromycin [Zithromax Z-pack] 250 mg PO DIRECTED #1 pack Ondansetron Odt [Zofran Odt] 4 mg PO Q8HR PRN #15 tab PRN Reason: Nausea Is patient prescribed a controlled substance at d/c from ED?: No Referrals: Taras Ratliff Jr, DO [Primary Care Provider] - 1-2 days Time of Disposition: 11:51
[2019-03-19 11:30] LABS: Mucus,Urine Moderate /hpf; Squamous Epithelial Cell,Urine 7 /hpf (0-4); WBC,Urine 2 /hpf (0-5)
[2019-03-19 12:45] VITALS: BP 127/67; PULSE 92; RESP 18; TEMP 99
== END 2019-03-19 12:40 | disposition home or self-care (01) ==
LOC: EC 08:31
DX: E86.0 Dehydration (principal); R11.2 Nausea with vomiting, unspecified; R05 Cough; R50.9 Fever, unspecified; Z32.02 Encounter for pregnancy test, result negative
CPT/HCPCS: 36415; 94640; 80053; 83605; 83690; 85025; 81003; 84703; 87502; 71046; 99284; 96374; 96375; 96361 ×3; J2405; J0696

== ENCOUNTER → 2021-06-20 | Outpatient (CLI) | payer OTHER | END | disposition home or self-care (01) | LOC: LABPAT 10:02 | PROVIDERS: ATTEND Obstetrics & Gynecology | DX: Z53.9 Procedure and treatment not carried out, unspecified reason (principal) ==

== ENCOUNTER 2021-06-21 06:27 | Day surgery (SDC) | payer OTHER ==
[2021-06-17 11:07] VITALS: BMI 32.5
[~2021-06-21 06:27] MED LIST: Pre Op ABX Message 1 EACH MISC MISCELLANE ONE
[2021-06-21 07:03] LABS: Basophils # (A) 0.03 X 10*3/uL (0.00-0.10); Basophils % (A) 0.3 %; Eosinophils # (A) 0.38 X 10*3/uL (0.04-0.35); Eosinophils % (A) 4.2 %; HCT 36.8 % (37.2-46.3); HGB 11.4 g/dL (12.0-15.0); Immature Grans, Automated 0.2 %; Lymphocytes # (A) 3.25 X 10*3/uL (0.90-5.00); Lymphocytes % (A) 36.1 %; MCH 26.3 pg (27.0-32.0); MCV 84.8 fL (80.0-97.0); Mean Platelet Volume 11.3 fL (9.5-12.2); Monocytes # (A) 0.55 X 10*3/uL (0.20-1.00); Monocytes % (A) 6.1 %; NRBC Per 100 WBC 0 /100 WBCS (0.0-0.0); Neutrophils # (A) 4.78 X 10*3/uL (1.80-7.70); Neutrophils % (A) 53.1 %; Platelet Count 267 X 10*3/uL (140-440); RBC 4.34 X 10*6/uL (4.10-5.20); RDW 14.5 % (11.5-14.5); WBC 9.01 X 10*3/uL (4.50-10.00)
[2021-06-21] MEDS ORDERED: HYDROmorphone 0.5 MG/0.5 ML SYRINGE IVP PRN (07:04)
[2021-06-21] MEDS ORDERED: DEXAMETHASONE SOD PHOSPHATE 4 MG/ML 1 ML VIAL IV ONE (07:04)
[2021-06-21] MEDS ORDERED: SCOPOLAMINE 1.5MG/72HR PATCH TRANSDERM ONE (07:04)
[2021-06-21] MEDS ORDERED: LACTATED RINGERS 1,000 ML IV SCH (07:04)
[2021-06-21] MEDS ORDERED: LIDOCAINE 1% (10MG/ML) FOR IV START INTRADERMA PRN (07:04)
[2021-06-21] MEDS ORDERED: ONDANSETRON 4 MG/2 ML VIAL IVP ONE (07:04)
[2021-06-21] MEDS ORDERED: PROPOFOL 10 MG/ML 20 ML VIAL IV ONE (07:25)
[2021-06-21] MEDS ORDERED: MIDAZOLAM 2 MG/2 ML VIAL ONE (07:25)
[2021-06-21] MEDS ORDERED: LIDOCAINE 1% INJ 10MG/ML (20 ML MDV) ONE (07:25)
[2021-06-21] MEDS ORDERED: fentaNYL (PF) 50 MCG/ML 2 ML AMP ONE (07:25)
[2021-06-21] MEDS ORDERED: KETOROLAC 15 MG/ML 1 ML VIAL ONE (07:25)
[2021-06-21 08:07] VITALS: TEMP 98.2
--- NOTE | 2021-06-21 08:07 | P.OP ---
Date of Procedure: 06/21/21 Preoperative Diagnosis: Blighted ovum at 6-5/7 weeks' gestation, AB+ blood type Postoperative Diagnosis: Same Procedure(s) Performed: Suction D&C Anesthesia: CATHERINEA Surgeon: Riya Walsh Estimated Blood Loss (ml): 200 IV fluids (ml): 400 Urine output (ml): 300 Pathology: other (Intrauterine contents) Condition: stable Disposition: PACU Description of Procedure: Patient is brought to the operating suite where general anesthetic is administered without difficulty. She's placed in the dorsal lithotomy position. The cervix, vagina, perineal bodies are all prepped and draped in usual sterile fashion. The appropriate timeout is performed to assure proper patient and procedural identification. Bladder is drained for approximately 300 mL of clear yellow urine. Examination under anesthesia reveals an anteverted uterus approxi mately 8 week size. The weighted speculum was placed into the vagina. The anterior lip of the cervix is grasped with a double-tooth tenaculum. The uterus sounds to a depth of 11 cm in the anteverted position. The cervix is gently and systematically dilated using Hegar dilators. The #8 curved curet is placed to the dome of the fundus and under appropriate suction pressures the uterus is thoroughly curettaged for a moderate amount of tissue. A sharp curette is used to be certain in all 4 quadrants that the cavity is clear. The suction curette is placed once again. Hemostasis is very good. All sponge needle and enhancement counts are correct. Patient is brought back to the recovery room in very good condition with stable vital signs including blood pressure 116/61, pulse 63, 100% O2 saturation. Blood type is AB+. Patient will follow-up with me in the office in 2 weeks.
[2021-06-21 09:02] VITALS: RESP 18
[2021-06-21 09:46] VITALS: BP 110/67; PULSE 66
== END 2021-06-21 09:45 | disposition home or self-care (01) ==
LOC: OR 06:27
PROVIDERS: ATTEND Obstetrics & Gynecology
DX: O02.0 Blighted ovum and nonhydatidiform mole (principal); N85.4 Malposition of uterus; J45.909 Unspecified asthma, uncomplicated; Z98.891 History of uterine scar from previous surgery; J30.2 Other seasonal allergic rhinitis; Z82.49 Family history of ischemic heart disease and other diseases of the circulatory system; Z86.32 Personal history of gestational diabetes; Z83.3 Family history of diabetes mellitus
CPT/HCPCS: 86900; 86901; 88305; 85025; 86850; 59820; J2250; J1100; J2405; J2001; J3010; J1885; J2704

== ENCOUNTER 2022-11-06 17:18 | Emergency (ER) | payer OTHER ==
[2022-11-06 17:32] VITALS: BP 109/75; PULSE 89; RESP 16; TEMP 99.2
[2022-11-06] MEDS ORDERED: KETOROLAC 15 MG/ML 1 ML VIAL IM STA (17:39)
[2022-11-06] MEDS ORDERED: ORPHENADRINE 30 MG/ML 2 ML VIAL IM STA (17:39)
[2022-11-06] MEDS ORDERED: dexAMETHasone 2 MG TAB PO STA (17:39)
[2022-11-06] MEDS ORDERED: LIDOCAINE 5% PATCH TOPICAL SCH (17:45)
--- NOTE | 2022-11-06 18:27 | XR ---
EXAMINATION TYPE: XR lumbar spine 2 or 3V DATE OF EXAM: 11/06/2022 5:56 PM INDICATION: Patient age:Female; 32 years old; Reason for study: fall; PHH. COMPARISON: None TECHNIQUE: Frontal, lateral and coned in L5-S1 lateral views of the spine. FINDINGS: No evidence of any acute osseous pathology. No evidence of loss of vertebral body height i s seen. There is normal alignment of the lumbar vertebral bodies. No significant degeneration changes throughout the spine. IMPRESSION: No acute fracture.
--- NOTE | 2022-11-06 18:28 | XR ---
EXAMINATION TYPE: XR sacrum coccyx DATE OF EXAM: 11/06/2022 5:56 PM INDICATION: Patient age:Female; 32 years old; Reason for study: fall; COMPARISON: None TECHNIQUE: The sacrum and coccyx was examined in frontal and lateral projections. FINDINGS: There is no evidence of fracture or dislocation. There is no soft tissue abnormality. No a bnormal calcifications are present. Multilevel degenerative changes of the lower spine. IMPRESSION: No acute osseous pathology.
--- NOTE | 2022-11-06 18:36 | ED ---
Fall HPI - General Chief Complaint: Fall Stated Complaint: Fall-back pain Time Seen by Provider: 11/06/22 17:33 Source: patient Mode of arrival: ambulatory - History of Present Illness Initial Comments: 32-year-old female presenting with chief complaint of lower back pain. States that she slipped and fell down several stairs today. States that she slid on her back down about 12 stairs. No loss of consciousness or blood thinners. She has no headache or neck pain. Pain is mainly of the lower back. No loss of bowel or bladder control or saddle paresthesia. No radiculopathy. No numbness, tingling, weakness. No abdominal pain, chest pain, difficulty breathing. No nausea, vomiting, dizziness. No vision or hearing changes. - Related Data Home Medications Medication Instructions Recorded Confirmed Pnv No.95/Ferrous Fum/Folic AC 1 each PO DAILY 06/17/21 06/21/21 [ Multivitamin Tablet] Previous Rx's Medication Instructions Recorded Cyclobenzaprine [Flexeril] 10 mg PO TID PRN #15 tab 11/06/22 Allergies Allergy/AdvReac Type Severity Reaction Status Date / Time No Known Allergies Allergy Verified 11/06/22 17:32 Review of Systems ROS Statement: Those systems with pertinent positive or pertinent negative responses have been documented in the HPI. ROS Other: All systems not noted in ROS Statement are negative. Past Medical History Past Medical History: No Reported History Additional Past Medical History / Comment(s): blighted ovum, hx pre eclampsia and gestational diabetes History of Any Multi-Drug Resistant Organisms: None Reported Past Surgical History: Section Additional Past Surgical History / Comment(s): c/s x3 Past Anesthesia/Blood Transfusion Reactions: No Reported Reaction Additional Past Anesthesia/Blood Transfusion Reaction / Comment(s): no hx blood transfusion Past Psychological History: No Psychological Hx Reported Smoking Status: Never smoker - Past Family History Father Family Medical History: No Reported History General Exam Limitations: no limitations General appearance: alert, in no apparent distress Head exam: Present: atraumatic, normocephalic, normal inspection Eye exam: Present: normal appearance, PERRL, EOMI. Absent: scleral icterus, periorbital swelling Neck exam: Present: normal inspection, full ROM. Absent: tenderness Respiratory exam: Present: normal lung sounds bilaterally. Absent: respiratory distress, wheezes, rales, rhonchi, stridor Cardiovascular Exam: Present: regular rate, normal rhythm, normal heart sounds. Absent: systolic murmur, diastolic murmur, rubs, gallop, clicks Back exam: Present: normal inspection, paraspinal tenderness. Absent: vertebral tenderness Neurological exam: Present: alert, oriented X3, CN II-XII intact Psychiatric exam: Present: normal affect, normal mood Skin exam: Present: warm, dry, intact, normal color. Absent: rash Course Vital Signs 11/06/22 17:28 Temperature 99.2 F Pulse Rate 89 Respiratory 16 Rate Blood Pressure 109/75 O2 Sat by Pulse 100 Oximetry Medical Decision Making - Medical Decision Making Was pt. sent in by a medical professional or institution (, PA, VISITING PROFESSOR, urgent care, hospital, or usp...) When possible be specific @ -No Did you speak to anyone other than the patient for history (EMS, parent, family, police, friend...)? What history was obtained from this source @ -No Did you review nursing and triage notes (agree or disagree)? Why? @ -I reviewed and agree with nursing and triage notes Were old charts reviewed (outside hosp., previous admission, EMS record, old EKG, old radiological studies, urgent care reports/EKG's, usp records)? Report findings @ -No old charts were reviewed Differential Diagnosis (chest pain, altered mental status, abdominal pain women, abdominal pain men, vaginal bleeding, weakness, fever, dyspnea, syncope, headache, dizziness, GI bleed, back pain, seizure, CVA, palpatations, mental health, musculoskeletal)? @ - [facility] Differential Back Pain: Strain, zoster, cauda equina syndrome, epidural abscess, vertebral osteomyelitis, discitis, fracture, subluxation, disc herniation, DJD, spinal stenosis, dissection, AAA, pancreatitis, peptic ulcer disease, pyelonephritis, kidney stone this is not meant to be an all-inclusive list. EKG interpreted by me (3pts min.). @ -As above X-rays interpreted by me (1pt min.). @ -Negative X-rays of the lumbar spine, sacrum, coccyx CT interpreted by me (1pt min.). @ -None done U/S interpreted by me (1pt. min.). @ -None done What testing was considered but not performed or refused? (CT, X-rays, U/S, labs)? Why? @ -None What meds were considered but not given or refused? Why? @ -None Did you discuss the management of the patient with other professionals (professionals i.e. , PA, VISITING PROFESSOR, lab, RT, psych nurse, social service assistant, supervisor tellers, teacher, employment officer, top case assembler)? Give summary @ -No Was smoking cessation discussed for >3mins.? @ -No Was critical care preformed (if so, how long)? @ -No Were there social determinants of health that impacted care today? How? (Homelessness, low income, unemployed, alcoholism, drug addiction, transportation, low edu. Level, literacy, decrease access to med. care, halfway, rehab)? @ -No Was there de-escalation of care discussed even if they declined (Discuss DNR or withdrawal of care, Hospice)? DNR status @ -No What co-morbidities impacted this encounter? (DM, HTN, Smoking, COPD, CAD, Cancer, CVA, ARF, Chemo, Hep., AIDS, mental health diagnosis, sleep apnea, morbid obesity)? @ -None Was patient admitted / discharged? Hospital course, mention meds given and route, prescriptions, significant lab abnormalities, going to OR and other pe rtinent info. @ -5-year-old female presenting with chief complaint of back pain after slipping and sliding down several stairs today. No loss of bowel or bladder control or saddle paresthesia. On physical examination she has paraspinal muscle tenderness with no midline tenderness. Negative x-rays of the lumbar spine, sacrum, and coccyx. Patient reports improvement after pain medication. She will be discharged with cyclobenzaprine. Educated on supportive management. Follow-up with PCP. Report back to ER with any new or worsening symptoms. Discussed return parameters and answered all questions. Patient conveyed verbal understanding and agreed to the plan. I discussed this case in detail with my attending Dr. Stoner Undiagnosed new problem with uncertain prognosis? @ -No Drug Therapy requiring intensive monitoring for toxicity (Heparin, Nitro, Insulin, Cardizem)? @ -No Were any procedures done? @ -No Diagnosis/symptom? @ -Low-back strain Acute, or Chronic, or Acute on Chronic? @ -acute Uncomplicated (without systemic symptoms) or Complicated (systemic symptoms)? @ -Uncomplicated Side effects of treatment? @ -No Exacerbation, Progression, or Severe Exacerbation? @ -No Poses a threat to life or bodily function? How? (Chest pain, USA, MS, pneumonia, PE, COPD, DKA, ARF, appy, cholecystitis, CVA, Diverticulitis, Homicidal, Suicidal, threat to staff... and all critical care pts) @ -No Disposition Clinical Impression: Mechanical back pain Disposition: HOME SELF-CARE Condition: Good Instructions (If sedation given, give patient instructions): Acute Low Back Pain (ED), Lower Back Exercises (ED) Additional Instructions: Follow-up with PCP. Report back to ER with any new or worsening symptoms. Take Motrin and Tylenol as needed. Take cyclobenzaprine as prescribed, do not take before driving or operating heavy machinery as it may cause drowsiness. Lidocaine patches are available [id number]. Use heat and ice as needed. Prescriptions: Cyclobenzaprine [Flexeril] 10 mg PO TID PRN #15 tab PRN Reason: Spasms Is patient prescribed a controlled substance at d/c from ED?: No Referrals: Taras Ratliff Jr, DO [Primary Care Provider] - 1-2 days Time of Disposition: 18:36
== END 2022-11-06 20:06 | disposition home or self-care (01) ==
LOC: EC 17:18
DX: S39.012A Strain of muscle, fascia and tendon of lower back, initial encounter (principal); W10.8XXA Fall (on) (from) other stairs and steps, initial encounter
CPT/HCPCS: 72100; 72220; 99283; 96372 ×2; J2360; J8540; J1885

== ENCOUNTER 2022-11-10 23:31 | Emergency (ER) | payer OTHER ==
[2022-11-10 23:52] VITALS: TEMP 97.9
[2022-11-11] MEDS ORDERED: LIDOCAINE 5% PATCH TOPICAL STA (00:52)
[2022-11-11] MEDS ORDERED: HYDROmorphone 0.5 MG/0.5 ML SYRINGE IM STA (00:52)
--- NOTE | 2022-11-11 02:15 | ED ---
General Adult HPI - General Chief complaint: Recheck/Abnormal Lab/Rx Stated complaint: fall down 14 stairs sunday Time Seen by Provider: 11/11/22 00:44 Source: patient Mode of arrival: ambulatory Limitations: no limitations - History of Present Illness Initial comments: Patient is a 32-year-old female who presents to emergency departments for lower back pain. Patient slipped on stairs on 11/06/22. She does not have her head or lose consciousness. She was evaluated in our emergency department on 11/06. Patient states her pain is not improving she appears to be in significant pain. She has been taking Motrin and Flexeril without relief. Patient reports a consistent pressure and her rectal region without loss of bowel or bladder function. No numbness or tingling. No leg weakness. - Related Data Home Medications Medication Instructions Recorded Confirmed Pnv No.95/Ferrous Fum/Folic AC 1 each PO DAILY 06/17/21 06/21/21 [ Multivitamin Tablet] Previous Rx's Medication Instructions Recorded Cyclobenzaprine [Flexeril] 10 mg PO TID PRN #15 tab 11/06/22 HYDROcodone/APAP 7.5-325MG [[place] 1 tab PO Q3HR PRN #18 tab 11/11/22 7.5-325] Lidocaine 5% Patch [Lidoderm 5% 1 patch TOPICAL DAILY PRN #7 patch 11/11/22 Patch] Allergies Allergy/AdvReac Type Severity Reaction Status Date / Time No Known Allergies Allergy Verified 11/10/22 23:52 Review of Systems ROS Statement: Those systems with pertinent positive or pertinent negative responses have been documented in the HPI. ROS Other: All systems not noted in ROS Statement are negative. Past Medical History Past Medical History: No Reported History Additional Past Medical History / Comment(s): blighted ovum, hx pre eclampsia and gestational diabetes History of Any Multi-Drug Resistant Organisms: None Reported Past Surgical History: Section Additional Past Surgical History / Comment(s): c/s x3 Past Anesthesia/Blood Transfusion Reactions: No Reported Reaction Additional Past Anesthesia/Blood Transfusion Reaction / Comment(s): no hx blood transfusion Past Psychological History: No Psychological Hx Reported Smoking Status: Never smoker Past Alcohol Use History: None Reported Past Drug Use History: None Reported - Past Family History Father Family Medical History: No Reported History General Exam Limitations: no limitations General appearance: alert Head exam: Present: atraumatic, normocephalic, normal inspection Respiratory exam: Present: normal lung sounds bilaterally. Absent: respiratory distress, wheezes, rales, rhonchi, stridor Cardiovascular Exam: Present: regular rate, normal rhythm, normal heart sounds. Absent: systolic murmur, diastolic murmur, rubs, gallop, clicks Back exam: Present: normal inspection, full ROM, vertebral tenderness (coccyx). Absent: paraspinal tenderness Neurological exam: Present: alert Psychiatric exam: Present: normal affect, normal mood Skin exam: Present: warm, dry, intact, normal color. Absent: rash Course Vital Signs 11/10/22 11/11/22 23:47 02:26 Temperature 97.9 F Pulse Rate 75 60 Respiratory 20 18 Rate Blood Pressure 171/91 138/84 O2 Sat by Pulse 100 100 Oximetry Medical Decision Making - Medical Decision Making Was pt. sent in by a medical professional or institution (, PA, SPECIAL PROCEDURES NURSE, urgent care, hospital, or skilled nursing...) When possible be specific @ -No Did you speak to anyone other than the patient for history (EMS, parent, family, police, friend...)? What history was obtained from this source @ -No Did you review nursing and triage notes (agree or disagree)? Why? @ -I reviewed and agree with nursing and triage notes Were old charts reviewed (outside hosp., previous admission, EMS record, old EKG, old radiological studies, urgent care reports/EKG's, skilled nursing records)? Report findings @ -Reviewed previous x-ray on 11/06. No evidence of fracture or dislocation of the lumbar spine, sacrum, coccyx Differential Diagnosis (chest pain, altered mental status, abdominal pain women, abdominal pain men, vaginal bleeding, weakness, fever, dyspnea, syncope, headache, dizziness, GI bleed, back pain, seizure, CVA, palpatations, mental health)? @ -Cauda equina, fracture, contusion, sprain. This list is not meant to be all-inclusive EKG interpreted by me (3pts min.). @ -As above X-rays interpreted by me (1pt min.). @ -None done CT interpreted by me (1pt min.). @ -None done U/S interpreted by me (1pt. min.). @ -None done What testing was considered but not performed or refused? (CT, X-rays, U/S, labs)? Why? @ -Consider x-raying however patient already had negative x-rays What meds were considered but not given or refused? Why? @ -None Did you discuss the management of the patient with other professionals (professionals i.e. , PA, SPECIAL PROCEDURES NURSE, lab, RT, psych nurse, manager social responsibility, cylinder honer, teacher, bank operations officer, case specialist)? Give summary @ -No Was smoking cessation discussed for >3mins.? @ -No Was critical care preformed (if so, how long)? @ -No Were there social determinants of health that impacted care today? How? (Homelessness, low income, unemployed, alcoholism, drug addiction, transportation, low edu. Level, literacy, decrease access to med. care, custodial, rehab)? @ -No Was there de-escalation of care discussed even if they declined (Discuss DNR or withdrawal of care, Hospice)? DNR status @ -No What co-morbidities impacted this encounter? (DM, HTN, Smoking, COPD, CAD, Cancer, CVA, ARF, Chemo, Hep., AIDS, mental health diagnosis, sleep apnea, morbid obesity)? @ -None Was patient admitted / discharged? Hospital course, mention meds given and route, prescriptions, significant lab abnormalities, going to OR and other pertinent info. @ -Patient presenting for low back pain. She has already had negative x-rays. No neurological deficit exam. No signs or symptoms of cauda equina. Pain treated in the emergency department with improvement. Patient will be discharged with short course of Hollywood for severe pain. We discussed symptomatic care in detail. She is referred to pr specialist for further evaluation and management. Undiagnosed new problem with uncertain prognosis? @ -No Drug Therapy requiring intensive monitoring for toxicity (Heparin, Nitro, Insulin, Cardizem)? @ -No Were any procedures done? @ -No Diagnosis/symptom? @ -mechanical back pain Acute, or Chronic, or Acute on Chronic? @ -Acute Uncomplicated (without systemic symptoms) or Complicated (systemic symptoms)? @ -Uncomplicated Side effects of treatment? @ -No Exacerbation, Progression, or Severe Exacerbation? @ -No Poses a threat to life or bodily function? How? (Chest pain, [place], [place], pneumonia, PE, COPD, DKA, ARF, appy, cholecystitis, CVA, Diverticulitis, Homicidal, Suicidal, threat to staff... and all critical care pts) @ -No Dr. Stoner is my attending Disposition Clinical Impression: Mechanical back pain Disposition: HOME SELF-CARE Condition: Good Additional Instructions: Alternate Tylenol and Motrin every 3-4 hours for pain. Save Hollywood for severe pain. Do not take Tylenol and Hollywood together. Operate machinery or drink alcohol while taking Hollywood. Continue warm compress. Follow-up with pr specialist in 1-2 days. Return to the emergency department if you experience new, concerning, or worsening symptoms. Prescriptions: Lidocaine 5% Patch [Lidoderm 5% Patch] 1 patch TOPICAL DAILY PRN #7 patch PRN Reason: Pain HYDROcodone/APAP 7.5-325MG [[place] 7.5-325] 1 tab PO Q3HR PRN #18 tab PRN Reason: Pain Is patient prescribed a controlled substance at d/c from ED?: No Referrals: Taras Ratliff Jr, DO [Primary Care Provider] - 1-2 days Chad Quiroz MD [STAFF PHYSICIAN] - 1-2 days
[2022-11-11 02:28] VITALS: BP 138/84; PULSE 60; RESP 18
== END 2022-11-11 02:28 | disposition home or self-care (01) ==
LOC: EC 23:31
DX: M54.50 Low back pain, unspecified (principal); W10.9XXA Fall (on) (from) unspecified stairs and steps, initial encounter
CPT/HCPCS: 96372 ×2; 99284 ×2; J1170

== ENCOUNTER 2023-01-31 19:10 | Emergency (ER) | payer OTHER ==
[2023-01-31 19:49] VITALS: BP 116/78; PULSE 84; RESP 18; TEMP 98.2
--- NOTE | 2023-01-31 21:21 | ED ---
Female Urogenital HPI - General Chief complaint: Vaginal Bleeding Stated complaint: Cramping/Spotting-6wks Time Seen by Provider: 01/31/23 20:51 Source: patient Mode of arrival: ambulatory Limitations: no limitations - History of Present Illness Initial comments: 32-year-old female A1 with history of one spontaneous miscarriage, currently 6 weeks presenting with chief complaint of abdominal cramping and spotting that started today. Patient will be seeing her PEDIATRIC AUDIOLOGIST Dr. Buchanan next week. She admits to nausea and vomiting which has been an issue throughout her first trimester. Patient has never required RhoGAM before. No dizziness or lightheadedness. No fevers or chills. No dysuria or flank pain. - Related Data Home Medications Medication Instructions Recorded Confirmed Pnv No.95/Ferrous Fum/Folic AC 1 each PO DAILY 06/17/21 06/21/21 [ Multivitamin Tablet] Previous Rx's Medication Instructions Recorded Cyclobenzaprine [Flexeril] 10 mg PO TID PRN #15 tab 11/06/22 HYDROcodone/APAP 7.5-325MG [[place] 1 tab PO Q3HR PRN #18 tab 11/11/22 7.5-325] Lidocaine 5% Patch [Lidoderm 5% 1 patch TOPICAL DAILY PRN #7 patch 11/11/22 Patch] Allergies Allergy/AdvReac Type Severity Reaction Status Date / Time No Known Allergies Allergy Verified 01/31/23 19:35 Review of Systems ROS Statement: Those systems with pertinent positive or pertinent negative responses have been documented in the HPI. ROS Other: All systems not noted in ROS Statement are negative. Past Medical History Past Medical History: No Reported History Additional Past Medical History / Comment(s): blighted ovum, hx pre eclampsia and gestational diabetes History of Any Multi-Drug Resistant Organisms: None Reported Past Surgical History: Section Additional Past Surgical History / Comment(s): c/s x3 Past Anesthesia/Blood Transfusion Reactions: No Reported Reaction Additional Past Anesthesia/Blood Transfusion Reaction / Comment(s): no hx blood transfusion Past Psychological History: No Psychological Hx Reported Smoking Status: Never smoker Past Alcohol Use History: None Reported Past Drug Use History: None Reported - Past Family History Father Family Medical History: No Reported History General Exam Limitations: no limitations General appearance: alert, in no apparent distress Head exam: Present: atraumatic, normocephalic, normal inspection Eye exam: Present: normal appearance, EOMI Neck exam: Present: normal inspection, full ROM Respiratory exam: Present: normal lung sounds bilaterally. Absent: respiratory distress, wheezes, rales, rhonchi, stridor Cardiovascular Exam: Present: regular rate, normal rhythm, normal heart sounds. Absent: systolic murmur, diastolic murmur, rubs, gallop, clicks GI/Abdominal exam: Present: soft. Absent: distended, tenderness, guarding, rebound, rigid Neurological exam: Present: alert, oriented X3 Psychiatric exam: Present: normal affect, normal mood Skin exam: Present: warm, dry, intact, normal color. Absent: rash Course Vital Signs 01/31/23 19:35 Temperature 98.2 F Pulse Rate 84 Respiratory 18 Rate Blood Pressure 116/78 O2 Sat by Pulse 98 Oximetry Medical Decision Making - Medical Decision Making Was pt. sent in by a medical professional or institution (, PA, CARTOGRAPHIC AIDE, urgent care, hospital, or fdc...) When possible be specific @ -No Did you speak to anyone other than the patient for history (EMS, parent, family, police, friend...)? What history was obtained from this source @ -No Did you review nursing and triage notes (agree or disagree)? Why? @ -I reviewed and agree with nursing and triage notes Were old charts reviewed (outside hosp., previous admission, EMS record, old EKG, old radiological studies, urgent care reports/EKG's, fdc records)? Report findings @ -No old charts were reviewed Differential Diagnosis (chest pain, altered mental status, abdominal pain women, abdominal pain men, vaginal bleeding, weakness, fever, dyspnea, syncope, headache, dizziness, GI bleed, back pain, seizure, CVA, palpatations, mental health, musculoskeletal)? @ -MDM Differential Vaginal Bleeding: Spontaneous , threatened , molar , ectopic , bloody show, incompetent cervix, abruptioplacenta, placenta previa, uterine rupture, dysfunctional uterine bleeding, hemorrhage, uterine fibroids . ... This is not meant to be an all-inclusive list EKG interpreted by me (3pts min.). @ -As above X-rays interpreted by me (1pt min.). @ -None done CT interpreted by me (1pt min.). @ -None done U/S interpreted by me (1pt. min.). @ -Report not finalized at the time of the patient's leaving AGAINST MEDICAL ADVICE What testing was considered but not performed or refused? (CT, X-rays, U/S, labs)? Why? @ -None What meds were considered but not given or refused? Why? @ -None Did you discuss the management of the patient with other professionals (yessica mcallister i.eZara Michael, PA, CARTOGRAPHIC AIDE, lab, RT, psych nurse, social media designer, management specialist, teacher, military police officer, case advocate)? Give summary @ -No Was smoking cessation discussed for >3mins.? @ -No Was critical care preformed (if so, how long)? @ -No Were there social determinants of health that impacted care today? How? (Homelessness, low income, unemployed, alcoholism, drug addiction, transportatio n, low edu. Level, literacy, decrease access to med. care, prison, rehab)? @ -No Was there de-escalation of care discussed even if they declined (Discuss DNR or withdrawal of care, Hospice)? DNR status @ -No What co-morbidities impacted this encounter? (DM, HTN, Smoking, COPD, CAD, Cancer, CVA, ARF, Chemo, Hep., AIDS, mental health diagnosis, sleep apnea, morbid obesity)? @ -None Was patient admitted / discharged? Hospital course, mention meds given and route, prescriptions, significant lab abnormalities, going to OR and other pertinent info. @ -32-year-old female presenting with chief complaint of vaginal spotting and cramping. Patient is currently about 6 weeks . Physical exam is conducted. Ultrasound was obtained and lab work is ordered. 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 I explained to the patient if she leaves now we will not know the status of her , this could result in loss of , , permanent injury. Patient conveyed verbal understanding. She is of sound mind and body and make her decision. Patient signs out AGAINST MEDICAL ADVICE. Undiagnosed new problem with uncertain prognosis? @ -No Drug Therapy requiring intensive monitoring for toxicity (Heparin, Nitro, Insulin, Cardizem)? @ -No Were any procedures done? @ -No Diagnosis/symptom? @ -Vaginal spotting Acute, or Chronic, or Acute on Chronic? @ -Acute Uncomplicated (without systemic symptoms) or Complicated (systemic symptoms)? @ -Unable to be determined Side effects of treatment? @ -No Exacerbation, Progression, or Severe Exacerbation? @ -No Poses a threat to life or bodily function? How? (Chest pain, [place], [place], pneumonia, PE, COPD, DKA, ARF, appy, cholecystitis, CVA, Diverticulitis, Homicidal, Suicidal, threat to staff... and all critical care pts) @ -Not determined as the patient left AMA - Lab Data Result diagrams: 01/31/23 21:11 01/31/23 21:11 Lab Results 01/31/23 01/31/23 01/31/23 Range/Units 21:10 21:11 21:11 WBC 9.2 (3.8-10.6) k/uL RBC 4.37 (3.80-5.40) m/uL Hgb 11.7 (11.4-16.0) gm/dL Hct 35.8 (34.0-46.0) % MCV 81.9 (80.0-100.0) fL MCH 26.8 (25.0-35.0) pg MCHC 32.7 (31.0-37.0) g/dL RDW 14.5 (11.5-15.5) % Plt Count 292 (150-450) k/uL MPV 8.6 Neutrophils % 49 % Lymphocytes % 41 % Monocytes % 6 % Eosinophils % 2 % Basophils % 0 % Neutrophils # 4.5 (1.3-7.7) k/uL Lymphocytes # 3.8 (1.0-4.8) k/uL Monocytes # 0.6 (0-1.0) k/uL Eosinophils # 0.2 (0-0.7) k/uL Basophils # 0.0 (0-0.2) k/uL PT 10.4 (10.0-12.5) sec INR 0.9 (<1.2) APTT 24.0 (22.0-30.0) sec Sodium (137-145) mmol/L Potassium (3.5-5.1) mmol/L Chloride (98-107) mmol/L Carbon Dioxide (22-30) mmol/L Anion Gap mmol/L BUN (7-17) mg/dL Creatinine (0.52-1.04) mg/dL Est GFR (CKD-EPI)AfAm (>60 ml/min/1.73 sqM) Est GFR (CKD-EPI)NonAf (>60 ml/min/1.73 sqM) Glucose (74-99) mg/dL Calcium (8.4-10.2) mg/dL Total Bilirubin (0.2-1.3) mg/dL AST (14-36) U/L ALT (4-34) U/L Alkaline Phosphatase (38-126) U/L Total Protein (6.3-8.2) g/dL Albumin (3.5-5.0) g/dL HCG, Quant mIU/mL Blood Type AB Positive Blood Type Recheck AB Pos Bld Type Recheck Status No 01/31/23 Range/Units 21:11 WBC (3.8-10.6) k/uL RBC (3.80-5.40) m/uL Hgb (11.4-16.0) gm/dL Hct (34.0-46.0) % MCV (80.0-100.0) fL MCH (25.0-35.0) pg MCHC (31.0-37.0) g/dL RDW (11.5-15.5) % Plt Count (150-450) k/uL MPV Neutrophils % % Lymphocytes % % Monocytes % % Eosinophils % % Basophils % % Neutrophils # (1.3-7.7) k/uL Lymphocytes # (1.0-4.8) k/uL Monocytes # (0-1.0) k/uL Eosinophils # (0-0.7) k/uL Basophils # (0-0.2) k/uL PT (10.0-12.5) sec INR (<1.2) APTT (22.0-30.0) sec Sodium 135 L (137-145) mmol/L Potassium 4.3 (3.5-5.1) mmol/L Chloride 107 (98-107) mmol/L Carbon Dioxide 18 L (22-30) mmol/L Anion Gap 10 mmol/L BUN 7 (7-17) mg/dL Creatinine 0.68 (0.52-1.04) mg/dL Est GFR (CKD-EPI)AfAm >90 (>60 ml/min/1.73 sqM) Est GFR (CKD-EPI)NonAf >90 (>60 ml/min/1.73 sqM) Glucose 83 (74-99) mg/dL Calcium 9.5 (8.4-10.2) mg/dL Total Bilirubin 0.7 (0.2-1.3) mg/dL AST 26 (14-36) U/L ALT 16 (4-34) U/L Alkaline Phosphatase 56 (38-126) U/L Total Protein 7.4 (6.3-8.2) g/dL Albumin 4.2 (3.5-5.0) g/dL HCG, Quant 19526.6 mIU/mL Blood Type Blood Type Recheck Bld Type Recheck Status Disposition Clinical Impression: Vaginal bleeding Disposition: LEFT AGAINST MEDICAL ADVICE Condition: Undetermined Is patient prescribed a controlled substance at d/c from ED?: No Referrals: Taras Ratliff Jr, [Primary Care Provider] - 1-2 days
[2023-01-31 21:54] LABS: Basophils % (A) 0 %; Eosinophils # (A) 0.2 k/uL (0-0.7); Eosinophils % (A) 2 %; HCT 35.8 % (34.0-46.0); HGB 11.7 gm/dL (11.4-16.0); Lymphocytes # (A) 3.8 k/uL (1.0-4.8); Lymphocytes % (A) 41 %; MCH 26.8 pg (25.0-35.0); MCHC 32.7 g/dL (31.0-37.0); MCV 81.9 fL (80.0-100.0); Mean Platelet Volume 8.6; Monocytes # (A) 0.6 k/uL (0-1.0); Monocytes % (A) 6 %; Neutrophils # (A) 4.5 k/uL (1.3-7.7); Neutrophils % (A) 49 %; Platelet Count 292 k/uL (150-450); RBC 4.37 m/uL (3.80-5.40); RDW 14.5 % (11.5-15.5); WBC 9.2 k/uL (3.8-10.6)
--- NOTE | 2023-01-31 21:59 | US ---
EXAMINATION TYPE: Transabdominal DATE OF EXAM: 01/31/2023 9:09 PM COMPARISON: NONE CLINICAL INDICATION: Female, 32 years old with history of pain; cramping x 1 day, spotting for 2 hour s. , 1 D&C. 3 c-sections EXAM PERFORMED: Transvaginal (TV) and Transabdominal (TA) EXAM MEASUREMENTS: GESTATIONAL AGE / DATING Physician Established: Not yet established Dates by LMP: 12/18/22 (6 weeks/2 days) EDC: 09/24/23 Dates by First Scan: No previous this is first scan Dates by Current Scan for: (5 weeks/6 days) EDC: MATERNAL ANATOMY Uterus: 8.4 x 6.0 x 4.5cm Right Ovary: 3.3 x 1.8 x 1.9cm Left Ovary: 2.7 x 2.0 x 1.6cm Post CDS / Adnexa: wnl Presence of free fluid: no Presence of corpus luteal cyst: Not seen Presence of subchorionic bleed: Yes. Hypoechoic heterogeneous area seen adjacent to gest sac measurin g 2.4 x 1.4 x 1.1cm GESTATION / SURVEY CRL: 0.21cm (5 weeks/5 days) MSD: 1.57cm (5 weeks/6 days) Yolk Sac (normal less than 6mm): 2.9mm Heart Rate: 108 bpm Rhythm: Normal IUP: Viable IUP Date of LMP: 12/18/22 Beta HcG (if available): N/A Single live IUP seen measuring 5 weeks 6 days IMPRESSION: 1. Single intrauterine gestation estimated at 5 weeks 5 days gestation based on crown-rump length. Ca rdiac activity measures 108. 2. Subchorionic hemorrhage or implantation bleed
[2023-01-31 22:11] LABS: INR 0.9 (<1.2); Prothrombin Time 10.4 sec (10.0-12.5)
[2023-01-31 22:29] LABS: ALT 16 U/L (4-34); AST 26 U/L (14-36); African American GFR (CKD) >90 (>60 ml/min/1.73 sqM); Albumin 4.2 g/dL (3.5-5.0); Alkaline Phosphatase 56 U/L (38-126); Anion Gap 10 mmol/L; Blood Urea Nitrogen 7 mg/dL (7-17); Calcium 9.5 mg/dL (8.4-10.2); Carbon Dioxide 18 mmol/L (22-30); Chloride 107 mmol/L (98-107); Glucose 83 mg/dL (74-99); Non-African American GFR(CKD) >90 (>60 ml/min/1.73 sqM); Potassium 4.3 mmol/L (3.5-5.1); Sodium 135 mmol/L (137-145); Total Bilirubin 0.7 mg/dL (0.2-1.3); Total Protein 7.4 g/dL (6.3-8.2)
== END 2023-01-31 21:47 | disposition left against medical advice (07) ==
LOC: EC 19:10
DX: O20.9 Hemorrhage in early pregnancy, unspecified (principal); Z53.21 Procedure and treatment not carried out due to patient leaving prior to being seen by health care provider; Z3A.01 Less than 8 weeks gestation of pregnancy
CPT/HCPCS: 36415; 76801; 76817; 80053; 84702; 85025; 85610; 85730; 86900; 86901; 99284

== ENCOUNTER 2023-02-02 19:12 | Emergency (ER) | payer OTHER ==
[2023-02-02 19:43] VITALS: TEMP 98.7
[2023-02-02 20:53] LABS: Basophils % (A) 0 %; Eosinophils # (A) 0.2 k/uL (0-0.7); Eosinophils % (A) 2 %; HGB 11.7 gm/dL (11.4-16.0); Lymphocytes # (A) 3.1 k/uL (1.0-4.8); Lymphocytes % (A) 33 %; MCH 27.4 pg (25.0-35.0); MCHC 33.3 g/dL (31.0-37.0); MCV 82.2 fL (80.0-100.0); Mean Platelet Volume 8.6; Monocytes # (A) 0.5 k/uL (0-1.0); Monocytes % (A) 6 %; Neutrophils # (A) 5.5 k/uL (1.3-7.7); Neutrophils % (A) 58 %; Platelet Count 271 k/uL (150-450); RBC 4.26 m/uL (3.80-5.40); RDW 14.5 % (11.5-15.5); WBC 9.5 k/uL (3.8-10.6)
[2023-02-02 22:10] VITALS: BP 112/66; PULSE 81; RESP 16
--- NOTE | 2023-02-02 22:10 | ED ---
Female Urogenital HPI - General Chief complaint: Vaginal Bleeding Stated complaint: 6 weeks preg,vaginal bleeding Time Seen by Provider: 02/02/23 19:53 Source: patient Mode of arrival: ambulatory Limitations: no limitations - History of Present Illness Initial comments: This patient is a 32-year-old woman who presents to have evaluation after she had some spotting vaginal bleeding earlier. Patient is concerned because she is about 6 weeks . The patient denies abdominal pain or cramping. She states that the spotting seems to have resolved now. No chest pain, dyspnea, diaphoresis, orthostatic symptoms. MD Complaint: vaginal bleeding -: hour(s) Severity scale (1-10): 0 Consistency: now resolved Improves with: none Worsens with: none Patient : Yes Number of weeks : 6 - Related Data Sexually active: Yes Home Medications Medication Instructions Recorded Confirmed Pnv No.95/Ferrous Fum/Folic AC 1 each PO DAILY 06/17/21 02/16/23 [ Multivitamin Tablet] Previous Rx's Medication Instructions Recorded Acetaminophen Tab [Tylenol] 650 mg PO Q6H PRN #30 tab 02/16/23 Ibuprofen [Motrin] 600 mg PO Q6HR PRN #30 tab 02/16/23 Allergies Allergy/AdvReac Type Severity Reaction Status Date / Time No Known Allergies Allergy Verified 02/16/23 09:02 Review of Systems ROS Statement: Those systems with pertinent positive or pertinent negative responses have been documented in the HPI. ROS Other: All systems not noted in ROS Statement are negative. Constitutional: Denies: fever, chills, weakness Respiratory: Denies: cough, dyspnea Cardiovascular: Denies: chest pain, palpitations, edema, syncope Gastrointestinal: Denies: abdominal pain, nausea, vomiting, diarrhea, constipation Genitourinary: Reports: as per HPI, other (Vaginal bleeding). Denies: dysuria, frequency, hematuria Musculoskeletal: Denies: back pain Skin: Denies: rash Neurological: Denies: headache, weakness Hematological/Lymphatic: Denies: easy bleeding Past Medical History Past Medical History: No Reported History Additional Past Medical History / Comment(s): blighted ovum, hx pre eclampsia and gestational diabetes History of Any Multi-Drug Resistant Organisms: None Reported Past Surgical History: Section Additional Past Surgical History / Comment(s): c/s x3 Past Anesthesia/Blood Transfusion Reactions: No Reported Reaction Additional Past Anesthesia/Blood Transfusion Reaction / Comment(s): no hx blood transfusion Past Psychological History: No Psychological Hx Reported Smoking Status: Never smoker Past Alcohol Use History: None Reported Past Drug Use History: None Reported - Past Family History Father Family Medical History: No Reported History General Exam Limitations: no limitations General appearance: alert, in no apparent distress Head exam: Present: atraumatic, normocephalic Eye exam: Present: normal appearance. Absent: scleral icterus, conjunctival injection Neck exam: Present: normal inspection Respiratory exam: Present: normal lung sounds bilaterally. Absent: respiratory distress, wheezes, rales, rhonchi, stridor Cardiovascular Exam: Present: regular rate, normal rhythm, normal heart sounds. Absent: systolic murmur, diastolic murmur, rubs, gallop GI/Abdominal exam: Present: soft. Absent: distended, tenderness, guarding, scar ound, rigid, mass, pulsatile mass, hernia Extremities exam: Present: normal inspection, normal capillary refill. Absent: pedal edema, calf tenderness Back exam: Present: normal inspection. Absent: CVA tenderness (R), CVA tenderness (L) Neurological exam: Present: alert Skin exam: Present: warm, dry, intact, normal color. Absent: rash Course Vital Signs 02/02/23 02/02/23 19:28 21:58 Temperature 98.7 F Pulse Rate 89 81 Respiratory 18 16 Rate Blood Pressure 116/78 112/66 O2 Sat by Pulse 98 99 Oximetry Medical Decision Making - Medical Decision Making Was pt. sent in by a medical professional or institution (, PA, FINISHER POLISHER, urgent care, hospital, or long-term...) When possible be specific @ -[No] Did you speak to anyone other than the patient for history (EMS, parent, family, police, friend...)? What history was obtained from this source @ -[No] Did you review nursing and triage notes (agree or disagree)? Why? @ -[I reviewed and agree with nursing and triage notes] Were old charts reviewed (outside hosp., previous admission, EMS record, old EKG, old radiological studies, urgent care reports/EKG's, long-term records)? Report findings @ -[No old charts were reviewed] Differential Diagnosis (chest pain, altered mental status, abdominal pain women, abdominal pain men, vaginal bleeding, weakness, fever, dyspnea, syncope, headache, dizziness, GI bleed, back pain, seizure, CVA, palpatations, mental health, musculoskeletal)? @ -[Differential Vaginal Bleeding: Spontaneous , threatened , molar , ectopic , bloody show, incompetent cervix, abruptioplacenta, placenta previa, uterine rupture, dysfunctional uterine bleeding, hemorrhage, uterine fibroids, this is not meant to be an all-inclusive list. EKG interpreted by me (3pts min.). @ -[ X-rays interpreted by me (1pt min.). @ -[None done] CT interpreted by me (1pt min.). @ -[None done] U/S interpreted by me (1pt. min.). @ -[None done] What testing was considered but not performed or refused? (CT, X-rays, U/S, labs)? Why? @ -[None] What meds were considered but not given or refused? Why? @ -[None] Did you discuss the management of the patient with other professionals (professionals i.e. , PA, FINISHER POLISHER, lab, RT, psych nurse, director social welfare, turner off, teacher, front desk officer, case planner)? Give summary @ -[No] Was smoking cessation discussed for >3mins.? @ -[No] Was critical care preformed (if so, how long)? @ -[No] Were there social determinants of health that impacted care today? How? (Homelessness, low income, unemployed, alcoholism, drug addiction, transportation, low edu. Level, literacy, decrease access to med. care, fpc, rehab)? @ -[No] Was there de-escalation of care discussed even if they declined (Discuss DNR or withdrawal of care, Hospice)? DNR status @ -[No] What co-morbidities impacted this encounter? (DM, HTN, Smoking, COPD, CAD, Cancer, CVA, ARF, Chemo, Hep., AIDS, mental health diagnosis, sleep apnea, morbid obesity)? @ -[None] Was patient admitted / discharged? Hospital course, mention meds given and route, prescriptions, significant lab abnormalities, going to OR and other pertinent info. @ -[Patient is 32-year-old woman here with spotting that has resolved. No abdominal pain. No current bleeding. At this point patient declines g ynecologic exam. We discussed appropriate further care and follow-up as well as return parameters. Undiagnosed new problem with uncertain prognosis? @ -[No] Drug Therapy requiring intensive monitoring for toxicity (Heparin, Nitro, Insulin, Cardizem)? @ -[No] Were any procedures done? @ -[No] Diagnosis/symptom? @ -[Threatened miscarriage Acute, or Chronic, or Acute on Chronic? @ -[Acute Uncomplicated (without systemic symptoms) or Complicated (systemic symptoms)? @ -[default] Side effects of treatment? @ -[No] Exacerbation, Progression, or Severe Exacerbation? @ -[No] Poses a threat to life or bodily function? How? (Chest pain, [place], [place], pneumonia, PE, COPD, DKA, ARF, appy, cholecystitis, CVA, Diverticulitis, Homicidal, Suicidal, threat to staff... and all critical care pts) @ -[No] - Lab Data Result diagrams: 02/02/23 20:29 Lab Results 02/02/23 02/02/23 02/02/23 Range/Units 20:10 20:29 20:29 WBC 9.5 (3.8-10.6) k/uL RBC 4.26 (3.80-5.40) m/uL Hgb 11.7 (11.4-16.0) gm/dL Hct 35.0 (34.0-46.0) % MCV 82.2 (80.0-100.0) fL MCH 27.4 (25.0-35.0) pg MCHC 33.3 (31.0-37.0) g/dL RDW 14.5 (11.5-15.5) % Plt Count 271 (150-450) k/uL MPV 8.6 Neutrophils % 58 % Lymphocytes % 33 % Monocytes % 6 % Eosinophils % 2 % Basophils % 0 % Neutrophils # 5.5 (1.3-7.7) k/uL Lymphocytes # 3.1 (1.0-4.8) k/uL Monocytes # 0.5 (0-1.0) k/uL Eosinophils # 0.2 (0-0.7) k/uL Basophils # 0.0 (0-0.2) k/uL HCG, Quant 77321.8 mIU/mL Blood Type AB Positive Blood Type Recheck AB Pos Bld Type Recheck Status No Disposition Clinical Impression: Threatened Disposition: HOME SELF-CARE Condition: Good Instructions (If sedation given, give patient instructions): Threatened Miscarriage (ED) Is patient prescribed a controlled substance at d/c from ED?: No Referrals: Taras Ratliff Jr, [Primary Care Provider] - 1-2 days Sonia Marte MD [STAFF PHYSICIAN] - 1-2 days
== END 2023-02-02 22:27 | disposition home or self-care (01) ==
LOC: EC 19:12
DX: O20.0 Threatened abortion (principal); Z3A.01 Less than 8 weeks gestation of pregnancy
CPT/HCPCS: 36415; 84702; 85025; 86900; 86901; 99284

== ENCOUNTER 2023-02-13 09:49 | Emergency (ER) | payer OTHER ==
[2023-02-13 10:09] VITALS: RESP 16
--- NOTE | 2023-02-13 10:34 | ED ---
General Adult HPI - General Chief complaint: Recheck/Abnormal Lab/Rx Stated complaint: 8wks preg- poss miscarriage Time Seen by Provider: 02/13/23 10:33 Source: patient, RN notes reviewed Mode of arrival: ambulatory Limitations: no limitations - History of Present Illness Initial comments: 32-year-old female presents emergency from chief complaint of vaginal bleeding . Patient sent in by OB GYNs office for blood work and ultrasound. Patient is a 3 runny weeks . Patient states she has no second pain she had minimal bleeding. 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 - Related Data Home Medications Medication Instructions Recorded Confirmed Pnv No.95/Ferrous Fum/Folic AC 1 each PO DAILY 06/17/21 06/21/21 [ Multivitamin Tablet] Previous Rx's Medication Instructions Recorded Cyclobenzaprine [Flexeril] 10 mg PO TID PRN #15 tab 11/06/22 HYDROcodone/APAP 7.5-325MG [[place] 1 tab PO Q3HR PRN #18 tab 11/11/22 7.5-325] Lidocaine 5% Patch [Lidoderm 5% 1 patch TOPICAL DAILY PRN #7 patch 11/11/22 Patch] Allergies Allergy/AdvReac Type Severity Reaction Status Date / Time No Known Allergies Allergy Verified 02/13/23 10:07 Review of Systems ROS Statement: Those systems with pertinent positive or pertinent negative responses have been documented in the HPI. ROS Other: All systems not noted in ROS Statement are negative. Past Medical History Past Medical History: No Reported History Additional Past Medical History / Comment(s): blighted ovum, hx pre eclampsia and gestational diabetes History of Any Multi-Drug Resistant Organisms: None Reported Past Surgical History: Section Additional Past Surgical History / Comment(s): c/s x3 Past Anesthesia/Blood Transfusion Reactions: No Reported Reaction Additional Past Anesthesia/Blood Transfusion Reaction / Comment(s): no hx blood transfusion Past Psychological History: No Psychological Hx Reported Smoking Status: Never smoker Past Alcohol Use History: None Reported Past Drug Use History: None Reported - Past Family History Father Family Medical History: No Reported History General Exam - General Exam Comments Initial Comments: Visual Physical Exam Vital signs reviewed General: Well-appearing, nontoxic, no acute distress. Head: Normocephalic, atraumatic Eyes: PERRLA, EOMI ENT: Airway patent Chest: Nonlabored breathing Skin: No visual rash, normal skin tone Neuro: Alert and oriented 3 Musculoskeletal: No gross abnormalities Limitations: no limitations General appearance: alert, in no apparent distress Head exam: Present: atraumatic, normocephalic, normal inspection ENT exam: Present: normal exam, mucous membranes moist Neck exam: Present: normal inspection, full ROM. Absent: tenderness, meningismus, lymphadenopathy Respiratory exam: Present: normal lung sounds bilaterally. Absent: respiratory distress, wheezes, rales, rhonchi, stridor Cardiovascular Exam: Present: regular rate, normal rhythm, normal heart sounds. Absent: systolic murmur, diastolic murmur, rubs, gallop, clicks GI/Abdominal exam: Present: soft, normal bowel sounds. Absent: distended, tenderness, guarding, rebound, rigid Course Vital Signs 02/13/23 02/13/23 10:07 12:49 Temperature 98.7 F 98.2 F Pulse Rate 78 72 Respiratory 16 16 Rate Blood Pressure 137/88 123/79 O2 Sat by Pulse 100 100 Oximetry Medical Decision Making - Medical Decision Making I performed a quick note portion of the chart signed Joni Felipe PA-C Was pt. sent in by a medical professional or institution (YONNY Michael, FURNACE COMBINATION ANALYST, urgent care, hospital, or intermediate...) When possible be specific @ -RETAIL PRODUCT DEMO SPECIALIST Did you speak to anyone other than the patient for history (EMS, parent, family, police, friend...)? What history was obtained from this source @ -No Did you review nursing and triage notes (agree or disagree)? Why? @ -I reviewed and agree with nursing and triage notes Were old charts reviewed (outside hosp., previous admission, EMS record, old EKG, old radiological studies, urgent care reports/EKG's, intermediate records)? Report findings @ -No old charts were reviewed Differential Diagnosis (chest pain, altered mental status, abdominal pain women, abdominal pain men, vaginal bleeding, weakness, fever, dyspnea, syncope, headache, dizziness, GI bleed, back pain, seizure, CVA, palpatations, mental health, musculoskeletal)? @ -Differential Vaginal Bleeding: Spontaneous , threatened , molar , ectopic , bloody show, incompetent cervix, abruptioplacenta, placenta previa, uterine rupture, dysfunctional uterine bleeding, hemorrhage, uterine fibroids, this is not meant to be an all-inclusive list.le EKG interpreted by me (3pts min.). @ -[None X-rays interpreted by me (1pt min.). @ -None done CT interpreted by me (1pt min.). @ -None done U/S interpreted by me (1pt. min.). @ -Ultrasound OB showing abnormal sac, subchorionic hemorrhage What testing was considered but not performed or refused? (CT, X-rays, U/S, labs)? Why? @ -None What meds were considered but not given or refused? Why? @ -None Did you discuss the management of the patient with other professionals (professionals i.e. , PA, FURNACE COMBINATION ANALYST, lab, RT, psych nurse, social sciences professor, enrobing machine corder, teacher, state highway police officer, case consultant)? Give summary @ -No Was smoking cessation discussed for >3mins.? @ -No Was critical care preformed (if so, how long)? @ -No Were there social determinants of health that impacted care today? How? (Homelessness, low income, unemployed, alcoholism, drug addiction, transportation, low edu. Level, literacy, decrease access to med. care, long term, rehab)? @ -No Was there de-escalation of care discussed even if they declined (Discuss DNR or withdrawal of care, Hospice)? DNR status @ -No What co-morbidities impacted this encounter? (DM, HTN, Smoking, COPD, CAD, Cancer, CVA, ARF, Chemo, Hep., AIDS, mental health diagnosis, sleep apnea, morbid obesity)? @ -None Was patient admitted / discharged? Hospital course, mention meds given and rout e, prescriptions, significant lab abnormalities, going to OR and other pertinent info. @ -Discharge patient wanted to leave prior to being hcg Quant. She does have a laboratory study for repeat labs in 48 hours from RETAIL PRODUCT DEMO SPECIALIST she states that she has access to her records and she prefers to be discharged. We did discuss recheck and return parameters Undiagnosed new problem with uncertain prognosis? @ -No Drug Therapy requiring intensive monitoring for toxicity (Heparin, Nitro, Insulin, Cardizem)? @ -No Were any procedures done? @ -No Diagnosis/symptom? @ -Threatened miscarriage Acute, or Chronic, or Acute on Chronic? @ -Acute Uncomplicated (without systemic symptoms) or Complicated (systemic symptoms)? @ -Uncomplicated Side effects of treatment? @ -No Exacerbation, Progression, or Severe Exacerbation? @ -No Poses a threat to life or bodily function? How? (Chest pain, [place], [place], pneumonia, PE, COPD, DKA, ARF, appy, cholecystitis, CVA, Diverticulitis, Homicidal, Suicidal, threat to staff... and all critical care pts) @ -No - Lab Data Lab Results 02/13/23 Range/Units 11:21 HCG, Quant [id number] mIU/mL Disposition Clinical Impression: Threatened miscarriage Disposition: HOME SELF-CARE Condition: Stable Instructions (If sedation given, give patient instructions): Threatened Miscarriage (ED) Additional Instructions: Please return to the Emergency Department if symptoms worsen or any other concerns. Is patient prescribed a controlled substance at d/c from ED?: No Referrals: Taras Ratliff Jr, DO [Primary Care Provider] - 1-2 days Time of Disposition: 12:21
--- NOTE | 2023-02-13 11:22 | US ---
EXAMINATION TYPE: Transabdominal DATE OF EXAM: 02/13/2023 10:51 AM COMPARISON: NONE CLINICAL INDICATION: Female, 32 years old with history of vaginal bleeding since 01/31/23; bleeding i s now spotting instead of heavy. Misc 2. C-sect x 3; D&C EXAM PERFORMED: EXAM MEASUREMENTS: GESTATIONAL AGE / DATING Dates by First Scan: (8 weeks/1 days) EDC: 09/24/2023 Dates by Current Scan for: 09/26/2023 (7 weeks/6 days) / MATERNAL ANATOMY Uterus: 8.8 x 6.2 x 6.4 cm Right Ovary: 4.2 x 2.6 x 1.9 cm Left Ovary: 4.1 x 2.3 x 2.3 cm Post CDS / Adnexa: WNL Presence of free fluid: no Presence of corpus luteal cyst: no Presence of subchorionic bleed: multiple GESTATION / SURVEY CRL: Unable to identify MSD: 2.92 (7 weeks / 6 days) Yolk Sac (normal less than 6mm): not able to identify Heart Rate: no HR Rhythm: none IUP: non viable IUP Date of LMP: unknown Beta HcG (if available): not available IMPRESSION: There appears to be an abnormal appearing pole with no cardiac tones identified. Findings sugge st demise however correlation with serial beta hCG and/or ultrasound is recommended.
[2023-02-13 13:11] VITALS: BP 123/79; PULSE 72; TEMP 98.2
== END 2023-02-13 13:20 | disposition home or self-care (01) ==
LOC: EC 09:49
DX: O20.0 Threatened abortion (principal); Z3A.08 8 weeks gestation of pregnancy
CPT/HCPCS: 36415; 76801; 76817; 84702; 99284

== ENCOUNTER 2023-02-15 09:27 | Emergency (ER) | payer OTHER ==
--- NOTE | 2023-02-15 10:25 | ED ---
Recheck HPI - General Chief Complaint: Recheck/Abnormal Lab/Rx Stated Complaint: Possible miscarriage, 8 wks Time Seen by Provider: 02/15/23 09:42 Source: patient, RN notes reviewed Mode of arrival: ambulatory Limitations: no limitations - History of Present Illness Initial Comments: This is a 32-year-old female who presents to the emergency department for a recheck of beta hCG. States that she is and approximately 8 weeks . She had an ultrasound when she was here 2 days ago and was told that a heartbeat could not be identified and she had questionable demise. She denies any pain or vaginal bleeding. States that she had a similar problem with one of her other children, and she ended up carrying him to term. She would like to have her hCG rechecked here to get faster results instead of taking the order to the lab. Continues to deny any vaginal bleeding or pelvic pain. MD Complaint: other (Recheck of hCG) - Related Data Home Medications Medication Instructions Recorded Confirmed Pnv No.95/Ferrous Fum/Folic AC 1 each PO DAILY 06/17/21 06/21/21 [ Multivitamin Tablet] Previous Rx's Medication Instructions Recorded Cyclobenzaprine [Flexeril] 10 mg PO TID PRN #15 tab 11/06/22 HYDROcodone/APAP 7.5-325MG [[place] 1 tab PO Q3HR PRN #18 tab 11/11/22 7.5-325] Lidocaine 5% Patch [Lidoderm 5% 1 patch TOPICAL DAILY PRN #7 patch 11/11/22 Patch] Allergies Allergy/AdvReac Type Severity Reaction Status Date / Time No Known Allergies Allergy Verified 02/15/23 09:40 Review of Systems ROS Statement: Those systems with pertinent positive or pertinent negative responses have been documented in the HPI. ROS Other: All systems not noted in ROS Statement are negative. Past Medical History Past Medical History: No Reported History Additional Past Medical History / Comment(s): blighted ovum, hx pre eclampsia and gestational diabetes History of Any Multi-Drug Resistant Organisms: None Reported Past Surgical History: Section Additional Past Surgical History / Comment(s): c/s x3 Past Anesthesia/Blood Transfusion Reactions: No Reported Reaction Additional Past Anesthesia/Blood Transfusion Reaction / Comment(s): no hx blood transfusion Past Psychological History: No Psychological Hx Reported Smoking Status: Never smoker Past Alcohol Use History: None Reported Past Drug Use History: None Reported - Past Family History Father Family Medical History: No Reported History General Exam Limitations: no limitations General appearance: alert, in no apparent distress Head exam: Present: atraumatic, normocephalic, normal inspection Respiratory exam: Present: normal lung sounds bilaterally. Absent: respiratory distress, wheezes, rales, rhonchi, stridor Cardiovascular Exam: Present: regular rate, normal rhythm, normal heart sounds. Absent: systolic murmur, diastolic murmur, rubs, gallop, clicks Neurological exam: Present: alert, oriented X3, CN II-XII intact Psychiatric exam: Present: normal affect, normal mood Skin exam: Present: warm, dry, intact, normal color. Absent: rash Course Vital Signs 02/15/23 02/15/23 09:37 10:29 Temperature 98 F 98 F Pulse Rate 80 76 Respiratory 18 18 Rate Blood Pressure 129/89 130/79 O2 Sat by Pulse 98 99 Oximetry Medical Decision Making - Medical Decision Making This is a 32-year-old female who presents to the emergency department for a recheck of beta hCG. Was pt. sent in by a medical professional or institution? @ -No Did you speak to anyone other than the patient for history? @ -No Did you review nursing and triage notes? @ -Yes, and I agree, it is accurate with regards to the patient's symptoms. Were old charts reviewed? @ -Beta hCG from 02/13, which was [id number]. Differential Diagnosis? @ -Not applicable EKG interpreted by me (3pts min.)? @ -Not obtained X-rays interpreted by me (1pt min.)? @ -Not obtained CT interpreted by me (1pt min.)? @ -Not obtained U/S interpreted by me (1pt. min.)? @ -Not obtained What testing was considered but not performed? (CT, X-rays, U/S, labs)? Why? @ -None What meds were considered but not given? Why? @ -None Did you discuss the management of the patient with other professionals? @ -No Did you reconcile home meds? @ -No Was smoking cessation discussed for >3mins.? @ -No Was critical care preformed (if so, how long)? @ -No Were there social determinants of health that impacted care today? How? (Homelessness, low income, unemployed, alcoholism, drug addiction, transportation, low edu. Level, literacy, decrease access to med. care, long-term, rehab)? @ -No Was there de-escalation of care discussed even if they declined? (Discuss DNR or withdrawal of care, Hospice)? @ -No What co-morbidities impacted this encounter? (DM, HTN, Smoking, COPD, CAD, Cancer, CVA, Hep., AIDS, mental health diagnosis, sleep apnea, morbid obesity)? @ - Was patient admitted / discharged? @ -Discharged. Beta hCG ordered, however before results returned, patient received a phone call that her son was sick and had to leave. States that she will look up the results in her patient portal. Her hCG was found to [id number] and 2 days ago it was [id number]. This has not doubled but it has increased. Patient will review these results on her own and follow up with MANAGER WILLOW. Undiagnosed new problem with uncertain prognosis? @ -None Drug Therapy requiring intensive monitoring for toxicity (Heparin, Nitro, Insulin, Cardizem)? @ -None Were any procedures done? @ -None Diagnosis/symptom? @ -, threatened miscarriage Acute, or Chronic, or Acute on Chronic? @ -Acute Uncomplicated (without systemic symptoms) or Complicated (systemic symptoms)? @ -Uncomplicated Side effects of treatment? @ -None Exacerbation, Progression, or Severe Exacerbation] @ -Not applicable Poses a threat to life or bodily function? @ -This will depend on how this progresses and if she develops severe pain and bleeding. Return precautions reviewed in depth, the patient is instructed to return to the emergency department with any new, worsening, or concerning symptoms. Patient verbalized understanding. This case was discussed in detail with the attending ED physician, Dr. Saenz. Presentation, findings, and treatment plan discussed in detail as well. - Lab Data Lab Results 02/15/23 Range/Units 10:11 HCG, Quant 577804.0 mIU/mL Disposition Clinical Impression: Threatened miscarriage Disposition: HOME SELF-CARE Instructions (If sedation given, give patient instructions): Avel becker (ED) Additional Instructions: Return to the emergency department with any new, worsening, or concerning symptoms. Follow up with your MANAGER WILLOW. Is patient prescribed a controlled substance at d/c from ED?: No Referrals: Taras Ratliff Jr, DO [Primary Care Provider] - 1-2 days
[2023-02-15 10:26] VITALS: RESP 18; TEMP 98
[2023-02-15 10:53] VITALS: BP 130/79; PULSE 76
== END 2023-02-15 10:46 | disposition home or self-care (01) ==
LOC: EC 09:27
DX: O20.0 Threatened abortion (principal); O24.419 Gestational diabetes mellitus in pregnancy, unspecified control; Z3A.08 8 weeks gestation of pregnancy
CPT/HCPCS: 36415; 84702; 99283

== ENCOUNTER → 2023-02-15 | Outpatient (CLI) | payer OTHER | END | disposition home or self-care (01) | LOC: LABWHC1 08:06 | PROVIDERS: ATTEND Obstetrics & Gynecology | DX: O02.1 Missed abortion (principal); Z3A.00 Weeks of gestation of pregnancy not specified | CPT/HCPCS: 36415; 84702 ==

== ENCOUNTER 2023-02-16 08:57 | Emergency (ER) | payer OTHER ==
[2023-02-16] MEDS ORDERED: SODIUM CHLORIDE 0.9% 1,000 ML IV ONE (09:05)
[2023-02-16 09:10] VITALS: TEMP 98.2
[2023-02-16 09:42] LABS: Basophils % (A) 0 %; Eosinophils # (A) 0.2 k/uL (0-0.7); Eosinophils % (A) 3 %; HCT 35.5 % (34.0-46.0); HGB 11.6 gm/dL (11.4-16.0); Lymphocytes # (A) 2.9 k/uL (1.0-4.8); Lymphocytes % (A) 33 %; MCH 26.7 pg (25.0-35.0); MCHC 32.8 g/dL (31.0-37.0); MCV 81.5 fL (80.0-100.0); Mean Platelet Volume 8.7; Monocytes # (A) 0.5 k/uL (0-1.0); Monocytes % (A) 5 %; Neutrophils # (A) 5.1 k/uL (1.3-7.7); Neutrophils % (A) 58 %; Platelet Count 269 k/uL (150-450); RBC 4.35 m/uL (3.80-5.40); RDW 14.4 % (11.5-15.5); WBC 8.8 k/uL (3.8-10.6)
[2023-02-16 09:59] LABS: ALT 15 U/L (4-34); AST 22 U/L (14-36); African American GFR (CKD) >90 (>60 ml/min/1.73 sqM); Albumin 3.8 g/dL (3.5-5.0); Alkaline Phosphatase 51 U/L (38-126); Anion Gap 7 mmol/L; Blood Urea Nitrogen 5 mg/dL (7-17); Calcium 9.3 mg/dL (8.4-10.2); Carbon Dioxide 22 mmol/L (22-30); Chloride 106 mmol/L (98-107); Glucose 101 mg/dL (74-99); Non-African American GFR(CKD) >90 (>60 ml/min/1.73 sqM); Sodium 135 mmol/L (137-145); Total Bilirubin 0.5 mg/dL (0.2-1.3); Total Protein 7.2 g/dL (6.3-8.2)
--- NOTE | 2023-02-16 10:11 | US ---
EXAMINATION TYPE: Ultrasound OB <= 14 weeks transvaginal DATE OF EXAM: 02/16/2023 9:55 AM COMPARISON: 02/13/2023 CLINICAL INDICATION: Female, 32 years old with history of vaginal bleeding; no bleeding or cramping t yelena, patient aware baby is not growing like it should be and wanted to know status of gestational sa c EXAM PERFORMED: OBTA/OBTV EXAM MEASUREMENTS: GESTATIONAL AGE / DATING Physician Established: Not yet established Dates by LMP: (6 weeks/2 days) EDC: 09/24/2023 Dates by First Scan: ( 5 weeks/6 days) EDC: 09/27/2023 Dates by Current Scan for: No IUP seen at this time (8 weeks 5 days by MSD) EDC: 09/23/2023 MATERNAL ANATOMY Uterus: 8.9 x 7.6 x 6.5 Right Ovary: 3.9 x 1.7 x 1.8cm Left Ovary: 3.5 x 1.7 x 1.9cm Post CDS / Adnexa: wnl Presence of free fluid: no Presence of corpus luteal cyst: no Presence of subchorionic bleed: multiple hypoechoic areas surrounding GS may represent bleeds GESTATION / SURVEY CRL: not seen MSD: 3.3cm (8 weeks/5 days) Date of LMP: 12/18/2022 Beta HcG (if available): [phone] - yesterday IMPRESSION: 1. Enlarging gestational sac now measuring 3.3 cm (8 weeks 5 days). Still, no yolk sac or pole is identified. Findings suggest blighted ovum. Recommend appropriate follow-up with SALES TEAM MEMBER. 2. Scattered small perigestational bleeds suggested.
[2023-02-16 10:12] LABS: Appearance,Urine Cloudy (Clear); Bilirubin,Urine Negative (Negative); Blood,Urine Negative (Negative); Color,Urine Light Yellow; Glucose,Urine (UA) Negative (Negative); Ketones,Urine Negative (Negative); Leukocyte Esterase,Urine Negative (Negative); Mucus,Urine Rare /hpf; Nitrite,Urine Negative (Negative); PH, Urine 6.5 (5.0-8.0); Protein,Urine Negative (Negative); RBC,Urine 1 /hpf (0-5); Specific Gravity,Urine 1.018 (1.001-1.035); Squamous Epithelial Cell,Urine 7 /hpf (0-4); Urobilinogen,Urine <2.0 mg/dL (<2.0); WBC,Urine 2 /hpf (0-5)
--- NOTE | 2023-02-16 11:00 | ED ---
General Adult HPI - General Chief complaint: Vaginal Bleeding Stated complaint: possible miscarriage Time Seen by Provider: 02/16/23 09:04 Source: patient, RN notes reviewed Mode of arrival: ambulatory Limitations: no limitations - History of Present Illness Initial comments: This is a 32-year-old -[place] female who is who presents the [facility] department with a chief complaint of recheck of beta hCG. She believes she is approximately 8 weeks , LMP 12/15/2022. She has had serial beta hCGs drawn within the last couple days and was concerned because she got conflicting results from the outpatient lab versus the emergency department yesterday. She denies any dizziness, lightheadedness, vaginal bleeding, vaginal cramping, vaginal discharge or low back pain. Patient reports she has a history of miscarriages and complicated pregnancies. - Related Data Home Medications Medication Instructions Recorded Confirmed Pnv No.95/Ferrous Fum/Folic AC 1 each PO DAILY 06/17/21 02/16/23 [ Multivitamin Tablet] Previous Rx's Medication Instructions Recorded Acetaminophen Tab [Tylenol] 650 mg PO Q6H PRN #30 tab 02/16/23 Ibuprofen [Motrin] 600 mg PO Q6HR PRN #30 tab 02/16/23 Allergies Allergy/AdvReac Type Severity Reaction Status Date / Time No Known Allergies Allergy Verified 02/16/23 09:02 Review of Systems ROS Statement: Those systems with pertinent positive or pertinent negative responses have been documented in the HPI. ROS Other: All systems not noted in ROS Statement are negative. Past Medical History Past Medical History: No Reported History Additional Past Medical History / Comment(s): blighted ovum, hx pre eclampsia and gestational diabetes History of Any Multi-Drug Resistant Organisms: None Reported Past Surgical History: Section Additional Past Surgical History / Comment(s): c/s x3 Past Anesthesia/Blood Transfusion Reactions: No Reported Reaction Additional Past Anesthesia/Blood Transfusion Reaction / Comment(s): no hx blood transfusion Past Psychological History: No Psychological Hx Reported Smoking Status: Never smoker Past Alcohol Use History: None Reported Past Drug Use History: None Reported - Past Family History Father Family Medical History: No Reported History General Exam - General Exam Comments Initial Comments: General: Alert, in no acute distress Head: atraumatic normocephalic. Eyes PERRL, EOMI intact, mucous membranes moist Respiratory: Lungs clear to auscultation bilaterally Cardiovascular: Heart rate regular rate and rhythm Abdominal: Soft without guarding or rebound Extremities: Normal inspection with full range of motion and normal capillary refill Neuroogic: alert and oriented 3, CN II-XII intact, able to ambulate with steady gait Skin: warm dry and intact with normal color Limitations: no limitations Course Vital Signs 02/16/23 02/16/23 09:00 12:00 Temperature 98.2 F Pulse Rate 72 70 Respiratory 20 16 Rate Blood Pressure 118/83 128/82 O2 Sat by Pulse 100 98 Oximetry - Reevaluation(s) Reevaluation #1: 02/16/23 11:00 Patient reevaluated and updated on results. Agreeable with the plan. Reevaluation #2: 02/16/23 11:29 Case is discussed with who reports patient is due to have dilation and curettage later today. She is stable enough for discharge and will be called for her OR appointment. Medical Decision Making - Medical Decision Making Was pt. sent in by a medical professional or institution (, PA, BOARD CERTIFIED BEHAVIORAL ANALYST, urgent care, hospital, or fdc...) When possible be specific @ -[No] Did you speak to anyone other than the patient for history (EMS, parent, family, police, friend...)? What history was obtained from this source @ -[No] Did you review nursing and triage notes (agree or disagree)? Why? @ -[I reviewed and agree with nursing and triage notes] Were old charts reviewed (outside hosp., previous admission, EMS record, old EKG, old radiological studies, urgent care reports/EKG's, fdc records)? Report findings @ -02/13/2023 which showed elevation in trending hCG levels Differential Diagnosis (chest pain, altered mental status, abdominal pain women, abdominal pain men, vaginal bleeding, weakness, fever, dyspnea, syncope, headache, dizziness, GI bleed, back pain, seizure, CVA, palpatations, mental health, musculoskeletal)? @ -[not applicable] EKG interpreted by me (3pts min.). @ -[As above] X-rays interpreted by me (1pt min.). @ -[None done] CT interpreted by me (1pt min.). @ -[None done] U/S interpreted by me (1pt. min.). @ -[None done] What testing was considered but not performed or refused? (CT, X-rays, U/S, labs)? Why? @ -[None] What meds were considered but not given or refused? Why? @ -[None] Did you discuss the management of the patient with other professionals (professionals i.e. , PA, BOARD CERTIFIED BEHAVIORAL ANALYST, lab, RT, psych nurse, social media project manager, deputy administrator, teacher, complaint investigations officer, therapeutic case manager)? Give summary @ -Dr. Del Cid who has the patient scheduled for dilation and curettage later in the day. Was smoking cessation discussed for >3mins.? @ -[No] Was critical care preformed (if so, how long)? @ -[No] Were there social determinants of health that impacted care today? How? (Homelessness, low income, unemployed, alcoholism, drug addiction, transportation, low edu. Level, literacy, decrease access to med. care, residential, rehab)? @ -[No] Was there de-escalation of care discussed even if they declined (Discuss DNR or withdrawal of care, Hospice)? DNR status @ -[No] What co-morbidities impacted this encounter? (DM, HTN, Smoking, COPD, CAD, Cancer, CVA, ARF, Chemo, Hep., AIDS, mental health diagnosis, sleep apnea, morbid obesity)? @ -[None] Was patient admitted / discharged? Hospital course, mention meds given and route, prescriptions, significant lab abnormalities, going to OR and other pertinent info. @ -Discharged. This is a pleasant 32-year-old female who presents the emergency department with problem. Patient had a thorough history and physical exam performed. Vital signs stable. Heart rate regular rate and rhythm, lungs are to auscultation bilaterally abdomen soft and nontender. Patient had laboratory studies performed which revealed hCG 161,000 . Ultrasound reveals enlarging gestational sac with no yolk sac or pole is identified. Case is discussed with Dr. Oliver are to place the patient stable enough for discharge and will be boarded in the OR FOR A D&C. I discussed the results in detail with the patient verbalized understanding and all questions were addressed. Patient encouraged to remain nothing by mouth until called by operative staff. Return precautions discussed at length. Patient discharged in stable condition. Case is discussed with Dr.Hunt [facility] who agrees with plan of care Undiagnosed new problem with uncertain prognosis? @ -[No] Drug Therapy requiring intensive monitoring for toxicity (Heparin, Nitro, Insulin, Cardizem)? @ -[No] Were any procedures done? @ -[No] Diagnosis/symptom? @ - Demise Acute, or Chronic, or Acute on Chronic? @ -Acute Uncomplicated (without systemic symptoms) or Complicated (systemic symptoms)? @ -Uncomplicated Side effects of treatment? @ -[No] Exacerbation, Progression, or Severe Exacerbation? @ -[No] Poses a threat to life or bodily function? How? (Chest pain, USA, CA, pneumonia, PE, COPD, DKA, ARF, appy, cholecystitis, CVA, Diverticulitis, Homicidal, Suicidal, threat to staff... and all critical care pts) @ -Yes, retained products of conception - Lab Data Result diagrams: 02/16/23 09:12 02/16/23 09:12 Lab Results 02/16/23 02/16/23 02/16/23 Range/Units 09:12 09:12 09:12 WBC 8.8 (3.8-10.6) k/uL RBC 4.35 (3.80-5.40) m/uL Hgb 11.6 (11.4-16.0) gm/dL Hct 35.5 (34.0-46.0) % MCV 81.5 (80.0-100.0) fL MCH 26.7 (25.0-35.0) pg MCHC 32.8 (31.0-37.0) g/dL RDW 14.4 (11.5-15.5) % Plt Count 269 (150-450) k/uL MPV 8.7 Neutrophils % 58 % Lymphocytes % 33 % Monocytes % 5 % Eosinophils % 3 % Basophils % 0 % Neutrophils # 5.1 (1.3-7.7) k/uL Lymphocytes # 2.9 (1.0-4.8) k/uL Monocytes # 0.5 (0-1.0) k/uL Eosinophils # 0.2 (0-0.7) k/uL Basophils # 0.0 (0-0.2) k/uL Sodium 135 L (137-145) mmol/L Potassium 4.2 (3.5-5.1) mmol/L Chloride 106 (98-107) mmol/L Carbon Dioxide 22 (22-30) mmol/L Anion Gap 7 mmol/L BUN 5 L (7-17) mg/dL Creatinine 0.62 (0.52-1.04) mg/dL Est GFR (CKD-EPI)AfAm >90 (>60 ml/min/1.73 sqM) Est GFR (CKD-EPI)NonAf >90 (>60 ml/min/1.73 sqM) Glucose 101 H (74-99) mg/dL Calcium 9.3 (8.4-10.2) mg/dL Total Bilirubin 0.5 (0.2-1.3) mg/dL AST 22 (14-36) U/L ALT 15 (4-34) U/L Alkaline Phosphatase 51 (38-126) U/L Total Protein 7.2 (6.3-8.2) g/dL Albumin 3.8 (3.5-5.0) g/dL HCG, Quant 590870.0 mIU/mL Urine Color Light Yellow Urine Appearance Cloudy H (Clear) Urine pH 6.5 (5.0-8.0) Ur Specific Howell 1.018 (1.001-1.035) Urine Protein Negative (Negative) Urine Glucose (UA) Negative (Negative) Urine Ketones Negative (Negative) Urine Blood Negative (Negative) Urine Nitrite Negative (Negative) Urine Bilirubin Negative (Negative) Urine Urobilinogen <2.0 (<2.0) mg/dL Ur Leukocyte Esterase Negative (Negative) Urine RBC 1 (0-5) /hpf Urine WBC 2 (0-5) /hpf Ur Squamous Epith Cells 7 H (0-4) /hpf Urine Mucus Rare H (None) /hpf Blood Type Blood Type Recheck Bld Type Recheck Status 02/16/23 Range/Units 09:20 WBC (3.8-10.6) k/uL RBC (3.80-5.40) m/uL Hgb (11.4-16.0) gm/dL Hct (34.0-46.0) % MCV (80.0-100.0) fL MCH (25.0-35.0) pg MCHC (31.0-37.0) g/dL RDW (11.5-15.5) % Plt Count (150-450) k/uL MPV Neutrophils % % Lymphocytes % % Monocytes % % Eosinophils % % Basophils % % Neutrophils # (1.3-7.7) k/uL Lymphocytes # (1.0-4.8) k/uL Monocytes # (0-1.0) k/uL Eosinophils # (0-0.7) k/uL Basophils # (0-0.2) k/uL Sodium (137-145) mmol/L Potassium (3.5-5.1) mmol/L Chloride (98-107) mmol/L Carbon Dioxide (22-30) mmol/L Anion Gap mmol/L BUN (7-17) mg/dL Creatinine (0.52-1.04) mg/dL Est GFR (CKD-EPI)AfAm (>60 ml/min/1.73 sqM) Est GFR (CKD-EPI)NonAf (>60 ml/min/1.73 sqM) Glucose (74-99) mg/dL Calcium (8.4-10.2) mg/dL Total Bilirubin (0.2-1.3) mg/dL AST (14-36) U/L ALT (4-34) U/L Alkaline Phosphatase (38-126) U/L Total Protein (6.3-8.2) g/dL Albumin (3.5-5.0) g/dL HCG, Quant mIU/mL Urine Color Urine Appearance (Clear) Urine pH (5.0-8.0) Ur Specific Howell (1.001-1.035) Urine Protein (Negative) Urine Glucose (UA) (Negative) Urine Ketones (Negative) Urine Blood (Negative) Urine Nitrite (Negative) Urine Bilirubin (Negative) Urine Urobilinogen (<2.0) mg/dL Ur Leukocyte Esterase (Negative) Urine RBC (0-5) /hpf Urine WBC (0-5) /hpf Ur Squamous Epith Cells (0-4) /hpf Urine Mucus (None) /hpf Blood Type AB Positive Blood Type Recheck AB Pos Bld Type Recheck Status No Disposition Clinical Impression: demise Disposition: HOME SELF-CARE Condition: Stable Additional Instructions: Please do not eat or drink anything for the rest of the day Please wait for a call from Dr del cid to return back to hospital for surgery Is patient prescribed a controlled substance at d/c from ED?: No Referrals: Taras Ratliff Jr, DO [Primary Care Provider] - 1-2 days Martine Doyle MD [STAFF PHYSICIAN] - 1-2 days Time of Disposition: 11:31
[2023-02-16 11:21] LABS: Potassium 4.2 mmol/L (3.5-5.1)
[2023-02-16 12:14] VITALS: BP 128/82; PULSE 70; RESP 16
== END 2023-02-16 12:01 | disposition home or self-care (01) ==
LOC: EC 08:57
DX: O35.9XX0 Maternal care for (suspected) fetal abnormality and damage, unspecified, not applicable or unspecified (principal)
CPT/HCPCS: 36415; 76801; 76817; 80053; 81001; 84702; 85025; 86900; 86901; 96360; 96361; 99284

== ENCOUNTER 2023-02-16 13:33 | Day surgery (SDC) | payer OTHER ==
[~2023-02-16 13:33] MED LIST changes: +DOXYCYCLINE 100 MG CAP PO PRN; -Pre Op ABX Message 1 EACH MISC MISCELLANE ONE
[2023-02-16] MEDS ORDERED: LACTATED RINGERS 1,000 ML IV ONE (13:48)
[2023-02-16] MEDS ORDERED: PROPOFOL 10 MG/ML 20 ML VIAL IV ONE (13:57)
[2023-02-16] MEDS ORDERED: MIDAZOLAM 2 MG/2 ML VIAL ONE (13:57)
[2023-02-16] MEDS ORDERED: fentaNYL (PF) 50 MCG/ML 2 ML AMP ONE (13:57)
[2023-02-16] MEDS ORDERED: KETOROLAC 15 MG/ML 1 ML VIAL ONE (13:57)
[2023-02-16] MEDS ORDERED: LIDOCAINE 1% INJ 10MG/ML (20 ML MDV) ONE (13:57)
[2023-02-16] MEDS ORDERED: DEXAMETHASONE SOD PHOSPHATE 4 MG/ML 1 ML VIAL IVP ONE (13:59)
[2023-02-16] MEDS ORDERED: ONDANSETRON 4 MG/2 ML VIAL IVP ONE (13:59)
[2023-02-16] MEDS ORDERED: ONDANSETRON 4 MG/2 ML VIAL ONE (14:00)
[2023-02-16 14:02] VITALS: RESP 16
[2023-02-16 14:06] LABS: Basophils % (A) 0 %; Eosinophils # (A) 0.2 k/uL (0-0.7); Eosinophils % (A) 2 %; HCT 35.4 % (34.0-46.0); HGB 11.7 gm/dL (11.4-16.0); Lymphocytes # (A) 3.3 k/uL (1.0-4.8); Lymphocytes % (A) 31 %; MCH 26.9 pg (25.0-35.0); MCHC 33.1 g/dL (31.0-37.0); MCV 81.3 fL (80.0-100.0); Mean Platelet Volume 8.3; Monocytes # (A) 0.5 k/uL (0-1.0); Monocytes % (A) 5 %; Neutrophils # (A) 6.4 k/uL (1.3-7.7); Neutrophils % (A) 60 %; Platelet Count 273 k/uL (150-450); RBC 4.35 m/uL (3.80-5.40); RDW 14.5 % (11.5-15.5); WBC 10.6 k/uL (3.8-10.6)
--- NOTE | 2023-02-16 14:47 | P.OP ---
Date of Procedure: 02/16/23 Preoperative Diagnosis: Blighted Ovum Postoperative Diagnosis: Same Procedure(s) Performed: Suction Dilation and Curettage Implants: None Anesthesia: SOLOMON Surgeon: Martine Doyle Estimated Blood Loss (ml): 400 IV fluids (ml): 400 Urine output (ml): 400 (clear yellow) Pathology: other (products of conception) Condition: stable Disposition: same day Indications for Procedure: Ms. Chapman is a 32 year old at approximately 8 weeks and 3 days gestation by LMP of 09/24/2023 who presents for surgical management of blighted ovum diagnosed by ultrasound and inappropriately rising beta-HCG levels. Operative Findings: On bimanual exam, the patient has approximately 6-week anteverted, mobile uterus. There was a moderate amount of tissue obtained on the procedure. The patient is Rh positive. Description of Procedure: The patient was taken to the operating room where a general anesthetic was administered. She was then positioned in the dorsal lithotomy position and prepped and draped in the normal sterile fashion. Once the anesthetic was found to be adequate, a bimanual exam was performed under anesthetic. Next, a weighted speculum was placed in the vagina. The anterior lip of cervix was grasped with the tenaculum and dilated with Kal dilators to accommodate the suction curette. An 8mm curved suction curette was connected to the suction and was placed in the cervix and a suction curettage was performed. Two passes were made with the suction curettage. Next, a sharp curettage was performed obtaining a small amount of tissue and this was followed by third suction curettage. After the procedure, the tenaculum was removed. The cervix was hemostatic. The weighted speculum was removed. After the procedure, a second bimanual exam was performed and the patient's uterus had significantly decreased in size.The patient was taken from the operating room in stable condition after she was cleaned. She will be discharged home today and will follow up in the office in 2 weeks.
[2023-02-16 15:20] VITALS: TEMP 97
[2023-02-16] MEDS ORDERED: HYDROmorphone 0.5 MG/0.5 ML SYRINGE IVP ONE (15:22)
[2023-02-16 16:33] VITALS: BP 119/62; PULSE 80
== END 2023-02-16 17:07 | disposition home or self-care (01) ==
LOC: OR 13:33
PROVIDERS: ATTEND Obstetrics & Gynecology
DX: O02.1 Missed abortion (principal)
CPT/HCPCS: 59820; 86900; 86901; 88305; 85025; 86850; J2250; J1100; J2405; J2001; J3010; J1885; J2704; J1170

== ENCOUNTER 2023-12-25 19:00 | Emergency (ER) | payer BC, OTHER ==
--- NOTE | 2023-12-25 19:35 | ED ---
Recheck HPI - General Source: patient, RN notes reviewed, old records reviewed Mode of arrival: ambulatory Limitations: no limitations - History of Present Illness MD Complaint: other (Recheck for ) -: week(s) Symptoms Since Prior Visit: no new symptoms Context: planned re-check Associated Symptoms: none Treatments Prior to Arrival: other (0) <Edison Torrez - Last Filed: 12/25/23 19:33> <Bobby Sarabia - Last Filed: 12/25/23 22:46> - General Chief Complaint: Abdominal Pain Stated Complaint: 8wks preg, abn US - History of Present Illness Initial Comments: QN-33 female to the ER for evaluation of recheck early . Recheck ultrasound and beta-hCG as patient believes she is around 8 weeks , had i recent inconclusive testing at prior outside facility (Edison Torrez) - Related Data Home Medications Medication Instructions Recorded Confirmed Pnv No.95/Ferrous Fum/Folic AC 1 each PO DAILY 06/17/21 02/16/23 [ Multivitamin Tablet] Previous Rx's Medication Instructions Recorded Acetaminophen Tab [Tylenol] 650 mg PO Q6H PRN #30 tab 02/16/23 Ibuprofen [Motrin] 600 mg PO Q6HR PRN #30 tab 02/16/23 Allergies Allergy/AdvReac Type Severity Reaction Status Date / Time No Known Allergies Allergy Verified 12/25/23 19:18 Review of Systems ROS Other: All systems not noted in ROS Statement are negative. <Edison Torrez - Last Filed: 12/25/23 19:33> ROS Other: All systems not noted in ROS Statement are negative. <Bobby Sarabia - Last Filed: 12/25/23 22:46> ROS Statement: Those systems with pertinent positive or pertinent negative responses have been documented in the HPI. Past Medical History Past Medical History: No Reported History Additional Past Medical History / Comment(s): blighted ovum, hx pre eclampsia and gestational diabetes History of Any Multi-Drug Resistant Organisms: None Reported Past Surgical History: Section Additional Past Surgical History / Comment(s): c/s x3, D/C X2 Past Anesthesia/Blood Transfusion Reactions: No Reported Reaction Additional Past Anesthesia/Blood Transfusion Reaction / Comment(s): no hx blood transfusion Past Psychological History: No Psychological Hx Reported Smoking Status: Never smoker Past Alcohol Use History: None Reported Past Drug Use History: None Reported - Past Family History Father Family Medical History: No Reported History <Edison Torrez - Last Filed: 12/25/23 19:33> General Exam Limitations: no limitations General appearance: alert, in no apparent distress Head exam: Present: atraumatic, normocephalic, normal inspection Eye exam: Present: normal appearance, PERRL, EOMI. Absent: scleral icterus, conjunctival injection, periorbital swelling ENT exam: Present: normal exam, mucous membranes moist Neck exam: Present: normal inspection. Absent: tenderness, meningismus, lymphadenopathy Respiratory exam: Present: normal lung sounds bilaterally. Absent: respiratory distress, wheezes, rales, rhonchi, stridor Cardiovascular Exam: Present: regular rate, normal rhythm, normal heart sounds. Absent: systolic murmur, diastolic murmur, rubs, gallop, clicks GI/Abdominal exam: Present: soft, normal bowel sounds. Absent: distended, tenderness, guarding, rebound, rigid Extremities exam: Present: normal inspection, full ROM, normal capillary refill. Absent: tenderness, pedal edema, joint swelling, calf tenderness Back exam: Present: normal inspection Neurological exam: Present: alert, oriented X3, CN II-XII intact Psychiatric exam: Present: normal affect, normal mood Skin exam: Present: warm, dry, intact, normal color. Absent: rash <Edison Torrez - Last Filed: 12/25/23 19:33> Course <Edison Torrez - Last Filed: 12/25/23 19:33> Vital Signs 12/25/23 12/25/23 19:19 21:51 Temperature 98.4 F 98.2 F Pulse Rate 93 87 Respiratory 17 16 Rate Blood Pressure 125/80 121/79 O2 Sat by Pulse 98 99 Oximetry - Reevaluation(s) Reevaluation #1: 12/25/23 19:35 QN completed by myself Dr Torrez (Edison Torrez) Medical Decision Making - Lab Data Result diagrams: 12/25/23 21:48 12/25/23 21:48 <Bobby Sarabia - Last Filed: 12/25/23 22:46> - Medical Decision Making Was pt. sent in by a medical professional or institution (YONNY Michael, LAST P[employer]ER, urgent care, hospital, or jail...) When possible be specific @ -No Did you speak to anyone other than the patient for history (EMS, parent, family, police, friend...)? What history was obtained from this source @ -No Did you review nursing and triage notes (agree or disagree)? Why? @ -I reviewed and agree with nursing and triage notes Were old charts reviewed (outside hosp., previous admission, EMS record, old EKG, old radiological studies, urgent care reports/EKG's, jail records)? Report findings @ -No old charts were reviewed Differential Diagnosis: Ectopic , early EKG interpreted by me (3pts min.). @ -As above X-rays interpreted by me (1pt min.). @ -None done CT interpreted by me (1pt min.). @ -None done U/S interpreted by me (1pt. min.). @ -Ultrasound showing IUP at 6 weeks with bradycardia. What testing was considered but not performed or refused? (CT, X-rays, U/S, labs)? Why? @ -None What meds were considered but not given or refused? Why? @ -None Did you discuss the management of the patient with other professionals (professionals i.e. YONNY Mcihael, LAST P[employer]ER, lab, RT, psych nurse, director of social services, turning and beading machine operator, teacher, regulatory compliance officer, employment evaluator/case manager)? Give summary @ -No Was smoking cessation discussed for >3mins.? @ -No Was critical care preformed (if so, how long)? @ -No Were there social determinants of health that impacted care today? How? (Homelessness, low income, unemployed, alcoholism, drug addiction, transpo rtation, low edu. Level, literacy, decrease access to med. care, custodial, rehab)? @ -No Was there de-escalation of care discussed even if they declined (Discuss DNR or withdrawal of care, Hospice)? DNR status @ -No What co-morbidities impacted this encounter? (DM, HTN, Smoking, COPD, CAD, Cancer, CVA, ARF, Chemo, Hep., AIDS, mental health diagnosis, sleep apnea, morbid obesity)? @ -None Was patient admitted / discharged? Hospital course, mention meds given and route, prescriptions, significant lab abnormalities, going to OR and other pertinent info. @ -33-year-old female with outpatient positive test and outpatient ultrasound with bradycardia. Patient presents for reevaluation. Ultrasound is performed and does show IUP with bradycardia. Patient is informed that this could be an early healthy versus threatened miscarriage. Laboratory studies are obtained and the patient will follow-up with obstetrics. She states she has an appointment for which is 2 days from now. Undiagnosed new problem with uncertain prognosis? @ -No Drug Therapy requiring intensive monitoring for toxicity (Heparin, Nitro, Insulin, Cardizem)? @ -No Were any procedures done? @ -No Diagnosis/symptom? @ -Early , threatened miscarriage Acute, or Chronic, or Acute on Chronic? @ -[Acute Uncomplicated (without systemic symptoms) or Complicated (systemic symptoms)? @ -Default Side effects of treatment? @ -No Exacerbation, Progression, or Severe Exacerbation? @ -No Poses a threat to life or bodily function? How? (Chest pain, USA, [place], pneumonia, PE, COPD, DKA, ARF, appy, cholecystitis, CVA, Diverticulitis, Homicidal, Suicidal, threat to staff... and all critical care pts) @ -No (Bobby Sarabia) - Lab Data Lab Results 12/25/23 12/25/23 Range/Units 21:48 21:48 WBC 11.3 H (3.8-10.6) k/uL RBC 4.63 (3.80-5.40) m/uL Hgb 11.5 (11.4-16.0) gm/dL Hct 36.2 (34.0-46.0) % MCV 78.2 L (80.0-100.0) fL MCH 24.9 L (25.0-35.0) pg MCHC 31.8 (31.0-37.0) g/dL RDW 15.3 (11.5-15.5) % Plt Count 377 (150-450) k/uL MPV 8.4 Neutrophils % 52 % Lymphocytes % 38 % Monocytes % 6 % Eosinophils % 2 % Basophils % 1 % Neutrophils # 5.8 (1.3-7.7) k/uL Lymphocytes # 4.3 (1.0-4.8) k/uL Monocytes # 0.7 (0-1.0) k/uL Eosinophils # 0.2 (0-0.7) k/uL Basophils # 0.1 (0-0.2) k/uL Hypochromasia Marked Microcytosis Slight Sodium 137 (137-145) mmol/L Potassium 4.4 (3.5-5.1) mmol/L Chloride 107 (98-107) mmol/L Carbon Dioxide 21 L (22-30) mmol/L Anion Gap 9 mmol/L BUN 8 (7-17) mg/dL Creatinine 0.79 (0.52-1.04) mg/dL Est GFR (CKD-EPI)AfAm >90 (>60 ml/min/1.73 sqM) Est GFR (CKD-EPI)NonAf >90 (>60 ml/min/1.73 sqM) Glucose 88 (74-99) mg/dL Calcium 9.7 (8.4-10.2) mg/dL Total Bilirubin 0.4 (0.2-1.3) mg/dL AST 36 (14-36) U/L ALT 26 (4-34) U/L Alkaline Phosphatase 58 (38-126) U/L Total Protein 7.6 (6.3-8.2) g/dL Albumin 4.3 (3.5-5.0) g/dL HCG, Quant 50363.1 mIU/mL Disposition <Edison Torrez - Last Filed: 12/25/23 19:33> Is patient prescribed a controlled substance at d/c from ED?: No Time of Disposition: 21:38 <Bobby Sarabia - Last Filed: 12/25/23 22:46> Clinical Impression: Early stage of Disposition: HOME SELF-CARE Condition: Fair Instructions (If sedation given, give patient instructions): Threatened Miscarriage (ED), (ED) Referrals: Taras Ratliff Jr, DO [Primary Care Provider] - 1-2 days Martine Doyle MD [STAFF PHYSICIAN] - 1-2 days
--- NOTE | 2023-12-25 21:02 | US ---
EXAMINATION TYPE: Transabdominal DATE OF EXAM: 12/25/2023 7:47 PM COMPARISON: NONE CLINICAL INDICATION: Female, 33 years old with history of ; Patient states US done yesterday at [facility], states that baby was small compared to her last period date. No symptoms. EXAM PERFORMED: Transvaginal (TV) and Transabdominal (TA) EXAM MEASUREMENTS: GESTATIONAL AGE / DATING Physician Established: Not yet established Dates by LMP: (8 weeks/0 days) EDC: 08/05/2024 Dates by First Scan: No previous this is first scan Dates by Current Scan for: (6 weeks/0 days) EDC: 08/19/2024 MATERNAL ANATOMY Uterus: 7.0 x 4.9 x 5.9cm. Appears wnl as best seen Right Ovary: 3.7 x 2.4 x 2.4cm. wnl as best seen Left Ovary: 2.2 x 1.6 x 1.1cm. wnl as best seen Post CDS / Adnexa: wnl Presence of free fluid: no Presence of corpus luteal cyst: not seen Presence of subchorionic bleed: no GESTATION / SURVEY CRL: 0.36cm (6 weeks/0 days) Yolk Sac (normal less than 6mm): 2mm Heart Rate: 58 bpm Rhythm: Normal IUP: Viable IUP Date of LMP: 10/30/2023 Beta HcG (if available): Not available at this time IMPRESSION: 1. 1. Single intrauterine gestation estimated at 6 weeks 0 days gestation based on the crown-rump length . 2. Cardiac activity of 58 bpm which is bradycardic. However, early gestation may have this finding. S hort-term follow-up is recommended. Repeat study and correlation with beta hCG is recommended. [facility], , 12/25/2023 8:59 PM
[2023-12-25 21:53] VITALS: BP 121/79; PULSE 87; RESP 16; TEMP 98.2
[2023-12-25 21:57] LABS: Basophils # (A) 0.1 k/uL (0-0.2); Basophils % (A) 1 %; Eosinophils # (A) 0.2 k/uL (0-0.7); Eosinophils % (A) 2 %; HCT 36.2 % (34.0-46.0); HGB 11.5 gm/dL (11.4-16.0); Hypochromasia Marked; Lymphocytes # (A) 4.3 k/uL (1.0-4.8); Lymphocytes % (A) 38 %; MCH 24.9 pg (25.0-35.0); MCHC 31.8 g/dL (31.0-37.0); MCV 78.2 fL (80.0-100.0); Mean Platelet Volume 8.4; Microcytosis Slight; Monocytes # (A) 0.7 k/uL (0-1.0); Monocytes % (A) 6 %; Neutrophils # (A) 5.8 k/uL (1.3-7.7); Neutrophils % (A) 52 %; Platelet Count 377 k/uL (150-450); RBC 4.63 m/uL (3.80-5.40); RDW 15.3 % (11.5-15.5); WBC 11.3 k/uL (3.8-10.6)
[2023-12-25 22:12] LABS: ALT 26 U/L (4-34); AST 36 U/L (14-36); African American GFR (CKD) >90 (>60 ml/min/1.73 sqM); Albumin 4.3 g/dL (3.5-5.0); Alkaline Phosphatase 58 U/L (38-126); Anion Gap 9 mmol/L; Blood Urea Nitrogen 8 mg/dL (7-17); Calcium 9.7 mg/dL (8.4-10.2); Carbon Dioxide 21 mmol/L (22-30); Chloride 107 mmol/L (98-107); Glucose 88 mg/dL (74-99); Non-African American GFR(CKD) >90 (>60 ml/min/1.73 sqM); Potassium 4.4 mmol/L (3.5-5.1); Sodium 137 mmol/L (137-145); Total Bilirubin 0.4 mg/dL (0.2-1.3); Total Protein 7.6 g/dL (6.3-8.2)
[2023-12-25 22:27] LABS: HCG,Quantitative Serum 10969.1 mIU/mL
== END 2023-12-25 21:52 | disposition home or self-care (01) ==
LOC: EC 19:00
CPT/HCPCS: 36415; 76801; 76817; 80053; 84702; 85025; 99284

== ENCOUNTER 2023-12-29 11:03 | Emergency (ER) | payer BC ==
[2023-12-29 11:36] VITALS: BP 117/84; PULSE 77; RESP 18; TEMP 98
--- NOTE | 2023-12-29 12:12 | ED ---
Recheck HPI - General Chief Complaint: Recheck/Abnormal Lab/Rx Stated Complaint: Possible miscarriage Time Seen by Provider: 12/29/23 12:11 Source: patient, RN notes reviewed, old records reviewed Mode of arrival: ambulatory Limitations: no limitations - History of Present Illness Initial Comments: 33-year-old female presented the ER with a chief complaint of abnormal hCG levels. Patient is presenting to the ER for evaluation of abnormal serum hCG levels. Patient was seen here on 12-25-2023 for abdominal pain. [place] time was [address]. Patient follow-up with [employer] Dr. Doyle on 12/27/23 and has serm hcg drawn at that time was 9244. Patient states she has been having mild cramping denies bleeding and is concerned she is having a miscarriage. Denies any other complaints at this time. - Related Data Home Medications Medication Instructions Recorded Confirmed Pnv No.95/Ferrous Fum/Folic AC 1 each PO DAILY 06/17/21 02/16/23 [ Multivitamin Tablet] Previous Rx's Medication Instructions Recorded Acetaminophen Tab [Tylenol] 650 mg PO Q6H PRN #30 tab 02/16/23 Ibuprofen [Motrin] 600 mg PO Q6HR PRN #30 tab 02/16/23 Allergies Allergy/AdvReac Type Severity Reaction Status Date / Time No Known Allergies Allergy Verified 12/29/23 11:36 Review of Systems ROS Statement: Those systems with pertinent positive or pertinent negative responses have been documented in the HPI. ROS Other: All systems not noted in ROS Statement are negative. Past Medical History Past Medical History: No Reported History Additional Past Medical History / Comment(s): blighted ovum, hx pre eclampsia and gestational diabetes History of Any Multi-Drug Resistant Organisms: None Reported Past Surgical History: Section Additional Past Surgical History / Comment(s): c/s x3, D/C X2 Past Anesthesia/Blood Transfusion Reactions: No Reported Reaction Additional Past Anesthesia/Blood Transfusion Reaction / Comment(s): no hx blood transfusion Past Psychological History: No Psychological Hx Reported Smoking Status: Never smoker Past Alcohol Use History: None Reported Past Drug Use History: None Reported - Past Family History Father Family Medical History: No Reported History General Exam Limitations: no limitations General appearance: alert, in no apparent distress Respiratory exam: Present: normal lung sounds bilaterally. Absent: respiratory distress, wheezes, rales, rhonchi, stridor Cardiovascular Exam: Present: regular rate, normal rhythm, normal heart sounds. Absent: systolic murmur, diastolic murmur, rubs, gallop, clicks GI/Abdominal exam: Present: soft, normal bowel sounds. Absent: distended, tenderness, guarding, rebound, rigid Neurological exam: Present: alert, oriented X3, CN II-XII intact Skin exam: Present: warm, dry, intact, normal color. Absent: rash Course Vital Signs 12/29/23 11:33 Temperature 98.0 F Pulse Rate 77 Respiratory 18 Rate Blood Pressure 117/84 O2 Sat by Pulse 100 Oximetry - Reevaluation(s) Reevaluation #1: 12/29/23 16:27 Case discussed with on-call [employer]IST, , who advised on outpatient follow-up on Sunday. Medical Decision Making - Medical Decision Making Was pt. sent in by a medical professional or institution (, PA, HOUSE ADMIN, urgent care, hospital, or alf...) When possible be specific @ -No Did you speak to anyone other than the patient for history (EMS, parent, family, police, friend...)? What history was obtained from this source @ -No Did you review nursing and triage notes (agree or disagree)? Why? @ -I reviewed and agree with nursing and triage notes Were old charts reviewed (outside hosp., previous admission, EMS record, old EKG, old radiological studies, urgent care reports/EKG's, alf records)? Report findings @ -Yes, I reviewed ER visit, laboratory studies and ultrasound performed on 12-25-2023. Serum hCG 10,969. Ultrasound showing an IUP with a heart rate of 58bpm. Differential Diagnosis (chest pain, altered mental status, abdominal pain women, abdominal pain men, vaginal bleeding, weakness, fever, dyspnea, syncope, headache, dizziness, GI bleed, back pain, seizure, CVA, palpatations, mental health, musculoskeletal)? @ -Differential Abdominal Pain Women:Appendicitis, Cholecystitis, diverticulosis, ischemic bowel, pancreatitis, hepatitis, UTI, gastroenteritis, AAA, incarcerated hernia, bowel obstruction, constipation, inflammatory bowel, hepatitis, peptic ulcer disease, splenic infarction, perforated viscus, vulvitis, ovarian torsion, PID, kidney stone, placenta abruption, this is not meant to be an all-inclusive list EKG interpreted by me (3pts min.). @ -As above X-rays interpreted by me (1pt min.). @ -None done CT interpreted by me (1pt min.). @ -None done U/S interpreted by me (1pt. min.). @ - ultrasound showing an IUP with no heart tones detected. What testing was considered but not performed or refused? (CT, X-rays, U/S, labs)? Why? @ -None What meds were considered but not given or refused? Why? @ -None Did you discuss the management of the patient with other professionals (professionals i.e. DrZara, PA, HOUSE ADMIN, lab, RT, psych nurse, social media assistant, pricing/signage team member, teacher, surveillance sensor officer, rn case mgr)? Give summary @ -Yes, case discussed with on-call [employer], Dr. Doyle, who advised on outpatient follow-up Sunday for further management. Was smoking cessation discussed for >3mins.? @ -No Was critical care preformed (if so, how long)? @ -No Were there social determinants of health that impacted care today? How? (Homelessness, low income, unemployed, alcoholism, drug addiction, transport ation, low edu. Level, literacy, decrease access to med. care, fdc, rehab)? @ -No Was there de-escalation of care discussed even if they declined (Discuss DNR or withdrawal of care, Hospice)? DNR status @ -No What co-morbidities impacted this encounter? (DM, HTN, Smoking, COPD, CAD, Cancer, CVA, ARF, Chemo, Hep., AIDS, mental health diagnosis, sleep apnea, morbid obesity)? @ - Was patient admitted / discharged? Hospital course, mention meds given and route, prescriptions, significant lab abnormalities, going to OR and other pertinent info. @ -Discharge. 33-year-old female presented to ER with a chief complaint of abnormal hCG levels. Patient's last menstrual cycle second is 10/30/23. Patient was seen here on 12-25-2023 for similar complaint. Serum hCG at that time 10,069 ultrasound showing IUP with a heart rate of 58 bpm. Upon my examination, patient in no signs of acute distress and nontoxic-appearing. Vitals within normal limits. Exam benign. Laboratory studies obtained showing a stable microcytic hypochromic anemia which appears to be chronic in nature. Serum hCG 10,040. Ultrasound today showed an IUP with no heart tones observed concerning for demise. Measuring 6 weeks 1 day. Urinalysis unremarkable. Blood type AB+ rhogam not indicated. Case discussed with on-call [employer]IST, Dr. Doyle who advised on outpatient follow-up on Sunday,12/31/23, for further evaluation. Upon reevaluation, patient resting comfortably on stretcher no signs of acute distress. Results discussed with patient, all questions answered. Advise close follow-up with [employer] on Sunday as instructed by Dr. Doyle. Strict return parameters discussed. Patient discharged in stable condition. Patient verbally expressed understanding agree with care plan. Case discussed with ED attending, . Undiagnosed new problem with uncertain prognosis? @ -No Drug Therapy requiring intensive monitoring for toxicity (Heparin, Nitro, Insulin, Cardizem)? @ -No Were any procedures done? @ -No Diagnosis/symptom? @ - demise Acute, or Chronic, or Acute on Chronic? @ -Acute Uncomplicated (without systemic symptoms) or Complicated (systemic symptoms)? @ -Complicated Side effects of treatment? @ -No Exacerbation, Progression, or Severe Exacerbation? @ -No Poses a threat to life or bodily function? How? (Chest pain, [place], MT, pneumonia, PE, COPD, DKA, ARF, appy, cholecystitis, CVA, Diverticulitis, Homicidal, Suicidal, threat to staff... and all critical care pts) @ -No - Lab Data Result diagrams: 12/29/23 13:00 12/29/23 13:00 Lab Results 12/29/23 12/29/23 12/29/23 Range/Units 12:59 13:00 13:00 WBC 9.7 (3.8-10.6) k/uL RBC 4.59 (3.80-5.40) m/uL Hgb 11.2 L (11.4-16.0) gm/dL Hct 36.3 (34.0-46.0) % MCV 78.9 L (80.0-100.0) fL MCH 24.3 L (25.0-35.0) pg MCHC 30.9 L (31.0-37.0) g/dL RDW 15.1 (11.5-15.5) % Plt Count 353 (150-450) k/uL MPV 8.3 Neutrophils % 59 % Lymphocytes % 31 % Monocytes % 6 % Eosinophils % 2 % Basophils % 0 % Neutrophils # 5.8 (1.3-7.7) k/uL Lymphocytes # 3.0 (1.0-4.8) k/uL Monocytes # 0.5 (0-1.0) k/uL Eosinophils # 0.2 (0-0.7) k/uL Basophils # 0.0 (0-0.2) k/uL Hypochromasia Marked Sodium 136 L (137-145) mmol/L Potassium 5.1 (3.5-5.1) mmol/L Chloride 106 (98-107) mmol/L Carbon Dioxide 22 (22-30) mmol/L Anion Gap 8 mmol/L BUN 8 (7-17) mg/dL Creatinine 0.67 (0.52-1.04) mg/dL Est GFR (CKD-EPI)AfAm >90 (>60 ml/min/1.73 sqM) Est GFR (CKD-EPI)NonAf >90 (>60 ml/min/1.73 sqM) Glucose 78 (74-99) mg/dL Calcium 9.5 (8.4-10.2) mg/dL Total Bilirubin 0.9 (0.2-1.3) mg/dL AST 53 H (14-36) U/L ALT 27 (4-34) U/L Alkaline Phosphatase 40 (38-126) U/L Total Protein 7.8 (6.3-8.2) g/dL Albumin 4.3 (3.5-5.0) g/dL HCG, Quant 31303.0 mIU/mL Urine Color Colorless Urine Appearance Clear (Clear) Urine pH 6.0 (5.0-8.0) Ur Specific [place] 1.006 (1.001-1.035) Urine Protein Negative (Negative) Urine Glucose (UA) Negative (Negative) Urine Ketones Negative (Negative) Urine Blood Negative (Negative) Urine Nitrite Negative (Negative) Urine Bilirubin Negative (Negative) Urine Urobilinogen <2.0 (<2.0) mg/dL Ur Leukocyte Esterase Negative (Negative) Blood Type Blood Type Recheck Bld Type Recheck Status 12/29/23 Range/Units 13:00 WBC (3.8-10.6) k/uL RBC (3.80-5.40) m/uL Hgb (11.4-16.0) gm/dL Hct (34.0-46.0) % MCV (80.0-100.0) fL MCH (25.0-35.0) pg MCHC (31.0-37.0) g/dL RDW (11.5-15.5) % Plt Count (150-450) k/uL MPV Neutrophils % % Lymphocytes % % Monocytes % % Eosinophils % % Basophils % % Neutrophils # (1.3-7.7) k/uL Lymphocytes # (1.0-4.8) k/uL Monocytes # (0-1.0) k/uL Eosinophils # (0-0.7) k/uL Basophils # (0-0.2) k/uL Hypochromasia Sodium (137-145) mmol/L Potassium (3.5-5.1) mmol/L Chloride (98-107) mmol/L Carbon Dioxide (22-30) mmol/L Anion Gap mmol/L BUN (7-17) mg/dL Creatinine (0.52-1.04) mg/dL Est GFR (CKD-EPI)AfAm (>60 ml/min/1.73 sqM) Est GFR (CKD-EPI)NonAf (>60 ml/min/1.73 sqM) Glucose (74-99) mg/dL Calcium (8.4-10.2) mg/dL Total Bilirubin (0.2-1.3) mg/dL AST (14-36) U/L ALT (4-34) U/L Alkaline Phosphatase (38-126) U/L Total Protein (6.3-8.2) g/dL Albumin (3.5-5.0) g/dL HCG, Quant mIU/mL Urine Color Urine Appearance (Clear) Urine pH (5.0-8.0) Ur Specific [place] (1.001-1.035) Urine Protein (Negative) Urine Glucose (UA) (Negative) Urine Ketones (Negative) Urine Blood (Negative) Urine Nitrite (Negative) Urine Bilirubin (Negative) Urine Urobilinogen (<2.0) mg/dL Ur Leukocyte Esterase (Negative) Blood Type AB Positive Blood Type Recheck AB Pos Bld Type Recheck Status No - Radiology Data Radiology results: report reviewed, image reviewed Disposition Clinical Impression: demise Disposition: HOME SELF-CARE Condition: Stable Instructions (If sedation given, give patient instructions): Miscarriage (ED), Dilation and Curettage (DC) Additional Instructions: Please follow-up with Dr. Doyle Sunday. Return to the ER for any new or worsening concerns. Is patient prescribed a controlled substance at d/c from ED?: No Referrals: Taras Ratliff Jr, DO [Primary Care Provider] - 1-2 days Martine Doyle MD [STAFF PHYSICIAN] - 1-2 days Time of Disposition: 14:31
[2023-12-29 13:06] LABS: Basophils % (A) 0 %; Eosinophils # (A) 0.2 k/uL (0-0.7); Eosinophils % (A) 2 %; HCT 36.3 % (34.0-46.0); HGB 11.2 gm/dL (11.4-16.0); Hypochromasia Marked; Lymphocytes % (A) 31 %; MCH 24.3 pg (25.0-35.0); MCHC 30.9 g/dL (31.0-37.0); MCV 78.9 fL (80.0-100.0); Mean Platelet Volume 8.3; Monocytes # (A) 0.5 k/uL (0-1.0); Monocytes % (A) 6 %; Neutrophils # (A) 5.8 k/uL (1.3-7.7); Neutrophils % (A) 59 %; Platelet Count 353 k/uL (150-450); RBC 4.59 m/uL (3.80-5.40); RDW 15.1 % (11.5-15.5); WBC 9.7 k/uL (3.8-10.6)
[2023-12-29 13:16] LABS: ALT 27 U/L (4-34); African American GFR (CKD) >90 (>60 ml/min/1.73 sqM); Albumin 4.3 g/dL (3.5-5.0); Anion Gap 8 mmol/L; Blood Urea Nitrogen 8 mg/dL (7-17); Calcium 9.5 mg/dL (8.4-10.2); Carbon Dioxide 22 mmol/L (22-30); Chloride 106 mmol/L (98-107); Glucose 78 mg/dL (74-99); Non-African American GFR(CKD) >90 (>60 ml/min/1.73 sqM); Sodium 136 mmol/L (137-145); Total Bilirubin 0.9 mg/dL (0.2-1.3); Total Protein 7.8 g/dL (6.3-8.2)
[2023-12-29 13:21] LABS: AST 53 U/L (14-36); Potassium 5.1 mmol/L (3.5-5.1)
[2023-12-29 13:22] LABS: Alkaline Phosphatase 40 U/L (38-126)
--- NOTE | 2023-12-29 13:57 | US ---
EXAMINATION TYPE: Transabdominal DATE OF EXAM: 12/29/2023 1:33 PM COMPARISON: 12/25/23 CLINICAL INDICATION: Female, 33 years old with history of abd pain; Pt states she noticed her hcg had dropped slightly from prior visit at dr office EXAM PERFORMED: Transvaginal (TV) EXAM MEASUREMENTS: GESTATIONAL AGE / DATING Dates by LMP: 10/30/23 (8 weeks/4 days) EDC: 08/05/24 Dates by First Scan: (6 weeks/0 days) EDC: Dates by Current Scan for: (6 weeks0 days) EDC: 08/23/24 MATERNAL ANATOMY Uterus: 6.7 x 5.2 x 5.9 cm Right Ovary: 3.9 x 2.2 x 2.4 cm Left Ovary: 3.2 x 1.7 x 1.6 cm Post CDS / Adnexa: wnl Presence of free fluid: no Presence of corpus luteal cyst: no Presence of subchorionic bleed: Yes - 1.1cm GESTATION / SURVEY CRL: 0.42 (6 weeks/1 days) MSD: 1.63 (5 weeks/6 days) Yolk Sac (normal less than 6mm): 0.42cm Heart Rate: Unable to obtain with M mode and color doppler IUP: No cardiac activity noted on today's scan. Question demise. Date of LMP: 10/30/23 Beta HcG (if available): 10,040 today IMPRESSION: 1. Intrauterine with no heart rate detected possibly indicating demise. Based o n crown rump length of the pole correspond to a of 6 weeks and 1 day. 2. Small subchorionic bleed as described above. [facility], , 12/29/2023 1:54 PM
[2023-12-29 14:08] LABS: Appearance,Urine Clear (Clear); Bilirubin,Urine Negative (Negative); Blood,Urine Negative (Negative); Color,Urine Colorless; Glucose,Urine (UA) Negative (Negative); Ketones,Urine Negative (Negative); Leukocyte Esterase,Urine Negative (Negative); Nitrite,Urine Negative (Negative); Protein,Urine Negative (Negative); Specific Gravity,Urine 1.006 (1.001-1.035); Urobilinogen,Urine <2.0 mg/dL (<2.0)
== END 2023-12-29 14:35 | disposition home or self-care (01) ==
LOC: EC 11:03
CPT/HCPCS: 36415; 76801; 76817; 80053; 81003; 84702; 85025; 86900; 86901; 99284

== ENCOUNTER 2024-01-02 06:15 | Day surgery (SDC) | payer BC ==
[2024-01-02] MEDS: IV FLUID CONTINUATION 1,000 ML IV ONE (06:36)
[2024-01-02] MEDS: LACTATED RINGERS 1,000 ML IV SCH (07:03)
[2024-01-02] MEDS: DOXYCYCLINE 100 MG CAP PO PRN (07:04)
[2024-01-02] MEDS: ONDANSETRON 4 MG/2 ML VIAL IVP ONE (07:04)
[2024-01-02] MEDS: DEXAMETHASONE SOD PHOSPHATE 4 MG/ML 1 ML VIAL IV ONE (07:04)
[2024-01-02] MEDS: MIDAZOLAM 2 MG/2 ML VIAL IV ONE (07:05)
[2024-01-02] MEDS ORDERED: fentaNYL (PF) 50 MCG/ML 2 ML AMP ONE (07:26)
[2024-01-02] MEDS ORDERED: PROPOFOL 10 MG/ML 20 ML VIAL IV ONE (07:26)
[2024-01-02] MEDS ORDERED: LIDOCAINE 1% INJ 10MG/ML (20 ML MDV) ONE (07:26)
[2024-01-02] MEDS ORDERED: KETOROLAC 15 MG/ML 1 ML VIAL ONE (07:26)
[2024-01-02] MEDS ORDERED: MIDAZOLAM 2 MG/2 ML VIAL ONE (07:26)
[2024-01-02 08:14] VITALS: TEMP 96.8
[2024-01-02] MEDS: HYDROmorphone 0.5 MG/0.5 ML SYRINGE IVP PRN (08:49)
--- NOTE | 2024-01-02 08:54 | P.OP ---
Date of Procedure: 01/02/24 Preoperative Diagnosis: 1. Missed 2. 6 weeks gestation 3. Recurrent loss Postoperative Diagnosis: Same Procedure(s) Performed: Suction dilation and curettage Implants: None Anesthesia: local Surgeon: Martine Doyle Estimated Blood Loss (ml): 100 IV fluids (ml): 500 Urine output (ml): 100 Pathology: other (products of conception) Condition: stable Disposition: same day Indications for Procedure: Ms. Chapman is a 33 year old with 6 week missed presenting for surgical management. Risks, benefits, and alternatives to suction D&C were discussed including risk of bleeding, infection, damage to surrounding structures, and uterine perforation. The patient understands these risks and desires to proceed with surgery as discussed. Operative Findings: Small amount of products of conception. EUA revealed a retroverted uterus sounding to 8 centimeters. The patient is blood type AB positive. Description of Procedure: The patient was taken to the OR where general anesthesia was administered without difficulty. She was placed in the dorsal lithotomy position. The patient was then prepared and draped in the normal sterile fashion. EUA findings as above. A weighted speculum was inserted into the posterior aspect of the vagina. An Allis clamp was used to grasp the anterior lip of the cervix at 10 and 2 o'clock. The cervical os was dilated to accommodate the 8mm suction curette. The curette was placed into uterine cavity up to the level of the uterine fundus until adequate suction was achieved. The uterus was then curetted in a clockwise fashion until minimal tissue was obtained. Sharp curettage of the uterine lining was performed to liberate tissue followed by more suction curettage. Products of conception were collected and sent for pathology and for Anora genetic testing. The Allis clamp was removed from the cervix and excellent hemostasis was noted at puncture sites. The patient tolerated the procedure well. The instrument and sponge counts were correct times two. The patient was awakened from general anesthesia and taken to the recovery room in a stable condition.
[2024-01-02 09:36] VITALS: BP 120/67; PULSE 67; RESP 18
[2024-01-02] MEDS: HYDROcodone/APAP 5-325MG 1 EACH TAB PO STA (09:44)
== END 2024-01-02 10:34 | disposition home or self-care (01) ==
LOC: OR 06:15
PROVIDERS: ATTEND Obstetrics & Gynecology
DX: O02.1 Missed abortion
CPT/HCPCS: 86850; 86900; 86901; 88305

== ENCOUNTER 2024-01-19 14:55 | Inpatient (IN) | payer BC ==
--- NOTE | 2024-01-19 16:10 | ED ---
Nausea/Vomiting/Diarrhea HPI - General Chief complaint: Abdominal Pain Stated complaint: abd pain,vomiting Time Seen by Provider: 01/19/24 15:12 Source: patient, RN notes reviewed Mode of arrival: ambulatory Limitations: no limitations - History of Present Illness Initial comments: This is a 33-year-old female presenting with nausea and vomiting and abdominal pain (9 out of 10) x 1 day. Patient states she was awoken from her sleep at 8 AM this morning with severe upper abdominal pain described as burning. Patient states she has been vomiting food contents, water and bile. Denies hematemesis. Patient states pain worsens with eating and extended sitting, improves with standing upright and walking. Patient endorses history of recent miscarriage with subsequent D and C on 01/02/2024. Patient denies fever, chills, chest pain, dyspnea, diarrhea, constipation, urinary symptoms, radiating/referred pain MD complaint: nausea, vomiting, abdominal pain Onset/Timin -: hour(s) Description of Vomiting: food contents, watery, bilious Associated Abdominal Pain: Yes Location: LUQ, RUQ, epigastric Radiation: none Severity: severe Severity scale (1-10): 9 Quality: other (Burning) Consistency: constant Improves with: other (Wart) Worsens with: eating, other (Drinking, extended sitting) Context: recent surgery/procedure (D&C on 01/02/2024) - Related Data Home Medications Medication Instructions Recorded Confirmed No Known Home Medications 01/01/24 01/02/24 Allergies Allergy/AdvReac Type Severity Reaction Status Date / Time No Known Allergies Allergy Verified 01/19/24 14:56 Review of Systems ROS Statement: Those systems with pertinent positive or pertinent negative responses have been documented in the HPI. ROS Other: All systems not noted in ROS Statement are negative. Past Medical History Past Medical History: No Reported History Additional Past Medical History / Comment(s): blighted ovum, hx pre eclampsia and gestational diabetes History of Any Multi-Drug Resistant Organisms: None Reported Past Surgical History: Section Additional Past Surgical History / Comment(s): c/s x3, D/C X3 Past Anesthesia/Blood Transfusion Reactions: No Reported Reaction Additional Past Anesthesia/Blood Transfusion Reaction / Comment(s): no hx blood transfusion Past Psychological History: No Psychological Hx Reported Smoking Status: Never smoker Past Alcohol Use History: None Reported Past Drug Use History: None Reported - Past Family History Father Family Medical History: No Reported History General Exam Limitations: no limitations General appearance: alert, anxious, in distress Head exam: Present: atraumatic, normocephalic, normal inspection Eye exam: Present: normal appearance, PERRL, EOMI. Absent: scleral icterus, conjunctival injection, periorbital swelling ENT exam: Present: normal exam, mucous membranes moist Neck exam: Present: normal inspection. Absent: tenderness, meningismus, lymphadenopathy Respiratory exam: Present: normal lung sounds bilaterally. Absent: respiratory distress, wheezes, rales, rhonchi, stridor Cardiovascular Exam: Present: regular rate, normal rhythm, normal heart sounds. Absent: systolic murmur, diastolic murmur, rubs, gallop, clicks GI/Abdominal exam: Present: soft, tenderness (Positive diffuse tenderness espec ially in right upper quadrant and epigastric region. Negative McBurney's point, negative Reyna sign), diminished bowel sounds. Absent: distended, guarding, rebound, rigid Extremities exam: Present: normal inspection, full ROM, normal capillary refill. Absent: tenderness, pedal edema, joint swelling, calf tenderness Back exam: Present: normal inspection Neurological exam: Present: alert, oriented X3, CN II-XII intact Psychiatric exam: Present: normal affect, normal mood Skin exam: Present: warm, dry, intact, normal color. Absent: rash Course Vital Signs 01/19/24 01/19/24 14:56 19:00 Temperature 98.7 F Pulse Rate 71 71 Respiratory 16 17 Rate Blood Pressure 137/96 147/92 O2 Sat by Pulse 100 99 Oximetry Medical Decision Making - Medical Decision Making Was pt. sent in by a medical professional or institution (, PA, FIELD [employer]BI[employer] ADJUSTER, urgent care, hospital, or fci...) When possible be specific @ -No Did you speak to anyone other than the patient for history (EMS, parent, family, police, friend...)? What history was obtained from this source @ -No Did you review nursing and triage notes (agree or disagree)? Why? @ -I reviewed and agree with nursing and triage notes Were old charts reviewed (outside hosp., previous admission, EMS record, old EKG, old radiological studies, urgent care reports/EKG's, fci records)? Report findings @ -No old charts were reviewed Differential Diagnosis (chest pain, altered mental status, abdominal pain women, abdominal pain men, vaginal bleeding, weakness, fever, dyspnea, syncope, headache, dizziness, GI bleed, back pain, seizure, CVA, palpatations, mental health, musculoskeletal)? @ -Differential Abdominal Pain Women: Appendicitis, Cholecystitis, diverticulosis, ischemic bowel, pancreatitis, hepatitis, UTI, gastroenteritis, AAA, incarcerated hernia, bowel obstruction, constipation, inflammatory bowel, hepatitis, peptic ulcer disease, splenic infarction, perforated viscus, vulvitis, ovarian torsion, PID, kidney stone, placenta abruption, this is not meant to be an all-inclusive list EKG interpreted by me (3pts min.). @ -Sinus rhythm without ST elevation, ST depression, T wave inversion. Ventricular rate 70 bpm, MO interval 156 ms, QRS 81 ms, QT/QTc 393/413 ms. X-rays interpreted by me (1pt min.). @ -None done CT interpreted by me (1pt min.). @ -Abdominal CT reveals cholelithiasis with gallbladder wall thickening U/S interpreted by me (1pt. min.). @ -Right upper quadrant ultrasound reveals cholelithiasis with cholecystitis What testing was considered but not performed or refused? (CT, X-rays, U/S, labs)? Why? @ -None What meds were considered but not given or refused? Why? @ -None Did you discuss the management of the patient with other professionals (professionals i.e. , PA, FIELD [employer]BI[employer] ADJUSTER, lab, RT, psych nurse, licensed social worker, travel freight and passenger agent, teacher, community liaison officer, case hardener)? Give summary @ -Spoke to Dr. Jones who advised to admit patient. Dr. Jones advised Rocephin 1 g and Flagyl 500 mg. Advised to consult sound and place patient n.p.o. Was smoking cessation discussed for >3mins.? @ -No Was critical care preformed (if so, how long)? @ -No Were there social determinants of health that impacted care today? How? (Homelessness, low income, unemployed, alcoholism, drug addiction, transportation, low edu. Level, literacy, decrease access to med. care, long-term, rehab)? @ -No Was there de-escalation of care discussed even if they declined (Discuss DNR or withdrawal of care, Hospice)? DNR status @ -No What co-morbidities impacted this encounter? (DM, HTN, Smoking, COPD, CAD, Cancer, CVA, ARF, Chemo, Hep., AIDS, mental health diagnosis, sleep apnea, morbid obesity)? @ -None Was patient admitted / discharged? Hospital course, mention meds given and route, prescriptions, significant lab abnormalities, going to OR and other pertinent info. @ -Admitted. Patient's pain and nausea managed initially with Dilaudid and Reglan. CT revealed cholelithiasis and cholecystitis. Limited ultrasound also revealed same. Contacted Dr. Jones who advised to admit and start antibiotics in place n.p.o. Undiagnosed new problem with uncertain prognosis? @ -No Drug Therapy requiring intensive monitoring for toxicity (Heparin, Nitro, Insulin, Cardizem)? @ -No Were any procedures done? @ -No Diagnosis/symptom? @ -Acute cholecystitis with cholelithiasis Acute, or Chronic, or Acute on Chronic? @ -Acute Uncomplicated (without systemic symptoms) or Complicated (systemic symptoms)? @ -Complicated Side effects of treatment? @ -No Exacerbation, Progression, or Severe Exacerbation? @ -No Poses a threat to life or bodily function? How? (Chest pain, [place], [place], pneumonia, PE, COPD, DKA, ARF, appy, cholecystitis, CVA, Diverticulitis, Homicidal, Suicidal, threat to staff... and all critical care pts) @ -Cholecystitis - Lab Data Result diagrams: 01/19/24 16:16 01/19/24 16:16 Lab Results 01/19/24 01/19/24 01/19/24 Range/Units 16:16 16:16 16:16 WBC 12.7 H (3.8-10.6) k/uL RBC 4.59 (3.80-5.40) m/uL Hgb 11.0 L (11.4-16.0) gm/dL Hct 35.5 (34.0-46.0) % MCV 77.5 L (80.0-100.0) fL MCH 23.9 L (25.0-35.0) pg MCHC 30.9 L (31.0-37.0) g/dL RDW 15.1 (11.5-15.5) % Plt Count 399 (150-450) k/uL MPV 8.3 Neutrophils % 81 % Lymphocytes % 14 % Monocytes % 3 % Eosinophils % 1 % Basophils % 0 % Neutrophils # 10.2 H (1.3-7.7) k/uL Lymphocytes # 1.8 (1.0-4.8) k/uL Monocytes # 0.4 (0-1.0) k/uL Eosinophils # 0.1 (0-0.7) k/uL Basophils # 0.0 (0-0.2) k/uL Hypochromasia Marked Microcytosis Slight Sodium 138 (137-145) mmol/L Potassium 4.5 (3.5-5.1) mmol/L Chloride 106 (98-107) mmol/L Carbon Dioxide 24 (22-30) mmol/L Anion Gap 8 mmol/L BUN 7 (7-17) mg/dL Creatinine 0.81 (0.52-1.04) mg/dL Est GFR (CKD-EPI)AfAm >90 (>60 ml/min/1.73 sqM) Est GFR (CKD-EPI)NonAf >90 (>60 ml/min/1.73 sqM) Glucose 96 (74-99) mg/dL Plasma Lactic Acid Gabino (0.7-2.0) mmol/L Calcium 9.6 (8.4-10.2) mg/dL Total Bilirubin 0.8 (0.2-1.3) mg/dL AST 54 H (14-36) U/L ALT 49 H (4-34) U/L Alkaline Phosphatase 68 (38-126) U/L Total Protein 8.0 (6.3-8.2) g/dL Albumin 4.5 (3.5-5.0) g/dL Amylase 79 (30-110) U/L Lipase 61 (23-300) U/L Urine Color Urine Appearance (Clear) Urine pH (5.0-8.0) Ur Specific Challenge (1.001-1.035) Urine Protein (Negative) Urine Glucose (UA) (Negative) Urine Ketones (Negative) Urine Blood (Negative) Urine Nitrite (Negative) Urine Bilirubin (Negative) Urine Urobilinogen (<2.0) mg/dL Ur Leukocyte Esterase (Negative) Urine RBC (0-5) /hpf Urine WBC (0-5) /hpf Ur Squamous Epith Cells (0-4) /hpf Urine Mucus (None) /hpf Urine HCG, Qual Not Detected (Not Detectd) 01/19/24 01/19/24 Range/Units 16:16 16:16 WBC (3.8-10.6) k/uL RBC (3.80-5.40) m/uL Hgb (11.4-16.0) gm/dL Hct (34.0-46.0) % MCV (80.0-100.0) fL MCH (25.0-35.0) pg MCHC (31.0-37.0) g/dL RDW (11.5-15.5) % Plt Count (150-450) k/uL MPV Neutrophils % % Lymphocytes % % Monocytes % % Eosinophils % % Basophils % % Neutrophils # (1.3-7.7) k/uL Lymphocytes # (1.0-4.8) k/uL Monocytes # (0-1.0) k/uL Eosinophils # (0-0.7) k/uL Basophils # (0-0.2) k/uL Hypochromasia Microcytosis Sodium (137-145) mmol/L Potassium (3.5-5.1) mmol/L Chloride (98-107) mmol/L Carbon Dioxide (22-30) mmol/L Anion Gap mmol/L BUN (7-17) mg/dL Creatinine (0.52-1.04) mg/dL Est GFR (CKD-EPI)AfAm (>60 ml/min/1.73 sqM) Est GFR (CKD-EPI)NonAf (>60 ml/min/1.73 sqM) Glucose (74-99) mg/dL Plasma Lactic Acid Gabino 1.0 (0.7-2.0) mmol/L Calcium (8.4-10.2) mg/dL Total Bilirubin (0.2-1.3) mg/dL AST (14-36) U/L ALT (4-34) U/L Alkaline Phosphatase (38-126) U/L Total Protein (6.3-8.2) g/dL Albumin (3.5-5.0) g/dL Amylase (30-110) U/L Lipase (23-300) U/L Urine Color Yellow Urine Appearance Cloudy H (Clear) Urine pH 7.0 (5.0-8.0) Ur Specific Challenge 1.023 (1.001-1.035) Urine Protein Trace H (Negative) Urine Glucose (UA) Negative (Negative) Urine Ketones Trace H (Negative) Urine Blood Moderate H (Negative) Urine Nitrite Negative (Negative) Urine Bilirubin Negative (Negative) Urine Urobilinogen <2.0 (<2.0) mg/dL Ur Leukocyte Esterase Negative (Negative) Urine RBC 4 (0-5) /hpf Urine WBC 2 (0-5) /hpf Ur Squamous Epith Cells 8 H (0-4) /hpf Urine Mucus Few H (None) /hpf Urine HCG, Qual (Not Detectd) Disposition Clinical Impression: Cholecystitis with cholelithiasis Disposition: ADMITTED IP TO THIS [facility] Condition: Good Instructions (If sedation given, give patient instructions): Cholecystitis (ED) Is patient prescribed a controlled substance at d/c from ED?: No Referrals: Taras Ratliff Jr, DO [Primary Care Provider] - 1-2 days Walter Amato MD [Medical Doctor] - 1-2 days Harry Rodriguez DO [Medical Doctor] - 1-2 days Time of Disposition: 19:39 Decision Date: 01/19/24 Decision Time: 19:39
[2024-01-19] MEDS: METOCLOPRAMIDE 5 MG/ML 2 ML VIAL IVP STA ×2 (16:20→18:06)
[2024-01-19] MEDS: HYDROmorphone 0.5 MG/0.5 ML SYRINGE IVP STA ×2 (16:21→18:05)
[2024-01-19 16:31] LABS: Basophils % (A) 0 %; Eosinophils # (A) 0.1 k/uL (0-0.7); Eosinophils % (A) 1 %; HCT 35.5 % (34.0-46.0); Hypochromasia Marked; Lymphocytes # (A) 1.8 k/uL (1.0-4.8); Lymphocytes % (A) 14 %; MCH 23.9 pg (25.0-35.0); MCHC 30.9 g/dL (31.0-37.0); MCV 77.5 fL (80.0-100.0); Mean Platelet Volume 8.3; Microcytosis Slight; Monocytes # (A) 0.4 k/uL (0-1.0); Monocytes % (A) 3 %; Neutrophils # (A) 10.2 k/uL (1.3-7.7); Neutrophils % (A) 81 %; Platelet Count 399 k/uL (150-450); RBC 4.59 m/uL (3.80-5.40); RDW 15.1 % (11.5-15.5); WBC 12.7 k/uL (3.8-10.6)
[2024-01-19 16:43] LABS: ALT 49 U/L (4-34); AST 54 U/L (14-36); African American GFR (CKD) >90 (>60 ml/min/1.73 sqM); Albumin 4.5 g/dL (3.5-5.0); Alkaline Phosphatase 68 U/L (38-126); Amylase 79 U/L (30-110); Anion Gap 8 mmol/L; Blood Urea Nitrogen 7 mg/dL (7-17); Calcium 9.6 mg/dL (8.4-10.2); Carbon Dioxide 24 mmol/L (22-30); Chloride 106 mmol/L (98-107); Glucose 96 mg/dL (74-99); Lipase 61 U/L (23-300); Non-African American GFR(CKD) >90 (>60 ml/min/1.73 sqM); Potassium 4.5 mmol/L (3.5-5.1); Sodium 138 mmol/L (137-145); Total Bilirubin 0.8 mg/dL (0.2-1.3)
[2024-01-19 17:33] LABS: Appearance,Urine Cloudy (Clear); Bilirubin,Urine Negative (Negative); Blood,Urine Moderate (Negative); Color,Urine Yellow; Glucose,Urine (UA) Negative (Negative); Ketones,Urine Trace (Negative); Leukocyte Esterase,Urine Negative (Negative); Mucus,Urine Few /hpf; Nitrite,Urine Negative (Negative); Protein,Urine Trace (Negative); RBC,Urine 4 /hpf (0-5); Specific Gravity,Urine 1.023 (1.001-1.035); Squamous Epithelial Cell,Urine 8 /hpf (0-4); Urobilinogen,Urine <2.0 mg/dL (<2.0); WBC,Urine 2 /hpf (0-5)
--- NOTE | 2024-01-19 17:57 | CT ---
EXAMINATION TYPE: CT abdomen pelvis w con CT DLP: 1142.3 mGycm, Automated exposure control for dose reduction was used. DATE OF EXAM: 01/19/2024 5:31 PM COMPARISON: None CLINICAL INDICATION: Female, 33 years old with history of Diffuse pain, epigastric pain, RUQ TTP; Pt presents with epigastric pain, nausea, vomiting. Pt had a recent miscarriage and D/C 01/02/2024. TECHNIQUE: Axial CT abdomen pelvis w con;Sagittal and coronal reformats were created on a separate w orkstation. Contrast used:100 ml mL of Isovue 300 with IV Contrast, (none if empty) Oral contrast used: without Oral Contrast (none if empty) FINDINGS: LOWER CHEST: Unremarkable ABDOMEN LIVER: Unremarkable GALLBLADDER AND BILE DUCTS: Gallstones near the gallbladder neck with circumference or wall thickenin g. PANCREAS: Unremarkable. SPLEEN: Unremarkable. ADRENAL GLANDS: Unremarkable. KIDNEYS AND URETERS: No evidence of hydronephrosis or renal calculus. The ureters are unremarkable. PELVIS BLADDER: Unremarkable REPRODUCTIVE: Unremarkable. ABDOMEN & PELVIS STOMACH AND BOWEL: No evidence of bowel obstruction. PERITONEUM/RETROPERITONEUM: No evidence of pneumoperitoneum or free fluid. VASCULATURE: No evidence of aortic aneurysm. MUSCULOSKELETAL: No acute osseous abnormalities LYMPH NODES: No gross evidence for lymphadenopathy. SOFT TISSUE/ABDOMINAL WALL: Unremarkable IMPRESSION: Cholelithiasis with circumferential gallbladder wall thickening correlate for signs and symptoms of a cute cholecystitis. [facility]cia, , 01/19/2024 5:54 PM
--- NOTE | 2024-01-19 19:04 | US ---
EXAMINATION TYPE: US abdomen limited DATE OF EXAM: 01/19/2024 COMPARISON: NONE CLINICAL INDICATION: Female, 33 years old with history of Gallstones on CT, right upper quadrant ultr asound; abdominal pain, gallstones TECHNIQUE: Grayscale and color Doppler imaging of the right upper quadrant was performed. FINDINGS: EXAM MEASUREMENTS: Liver Length: 17.2 cm Gallbladder Wall: 0.4 cm CBD: 0.6 cm Right Kidney: 10.9 x 3.8 x 5.5 cm Pancreas: Obscured by bowel gas Liver: wnl Gallbladder: stone = 2.5cm. wall appears edematous Evidence for sonographic Reyna's sign: no CBD: upper limits of normal Right Kidney: no evidence of hydronephrosis IMPRESSION: Cholelithiasis with thickened gallbladder don correlate for acute cholecystitis. [facility]cia, Workstation: [id number], 01/19/2024 7:02 PM
[2024-01-19] MEDS ORDERED: NALOXONE 0.4 MG/ML 1 ML VIAL IV PRN (19:43)
[2024-01-19] MEDS: SODIUM CHLORIDE 0.9% 500 ML 500 ML IV STA (20:10)
[2024-01-19] MEDS: cefTRIAXone IN SWFI 1,000 MG/10 ML SYRINGE IVP STA (20:11)
[2024-01-19] MEDS: metroNIDAZOLE-NS PMX 500 MG in SALINE 1 100ML.BAG IVPB STA (20:13)
[2024-01-19] MEDS: HYDROmorphone 0.5 MG/0.5 ML SYRINGE IVP PRN (21:19)
[2024-01-20] MEDS: metroNIDAZOLE-NS PMX 500 MG in SALINE 1 100ML.BAG IVPB SCH (00:26)
[2024-01-20] MEDS: SODIUM CHLORIDE 0.9% 1,000 ML IV SCH (00:26)
--- NOTE | 2024-01-20 05:13 | P.GSHP ---
History of Present Illness H&P Date: 01/20/24 33-year-old female presenting with nausea, vomiting and abdominal pain x 1 day. Patient states she was awoken from her sleep at 8 AM this morning with severe upper abdominal pain described as burning. Patient states she has been vomiting food contents, water and bile. Denies hematemesis. Patient states pain worsens with eating and extended sitting, improves with standing upright and walking. P atient endorses history of recent miscarriage with subsequent D and C on 01/02/2024. Patient denies fever, chills, chest pain, dyspnea, diarrhea, constipation, urinary symptoms, radiating/referred pain. She had a CT-AP and RUQ US which was consistent with cholecystitis Review of Systems ROS Statement: Those systems with pertinent positive or pertinent negative responses have been documented in the HPI. Past Medical History Past Medical History: No Reported History Additional Past Medical History / Comment(s): blighted ovum, hx pre eclampsia and gestational diabetes History of Any Multi-Drug Resistant Organisms: None Reported Past Surgical History: Section Additional Past Surgical History / Comment(s): c/s x3, D/C X3 Past Anesthesia/Blood Transfusion Reactions: No Reported Reaction Additional Past Anesthesia/Blood Transfusion Reaction / Comment(s): no hx blood transfusion Past Psychological History: No Psychological Hx Reported Smoking Status: Never smoker Past Alcohol Use History: None Reported Past Drug Use History: None Reported - Past Family History Father Family Medical History: No Reported History General Exam Limitations: no limitations General appearance: alert, anxious, in distress Head exam: Present: atraumatic, normocephalic, normal inspection Eye exam: Present: normal appearance, PERRL, EOMI. Absent: scleral icterus, conjunctival injection, periorbital swelling ENT exam: Present: normal exam, mucous membranes moist Neck exam: Present: normal inspection. Absent: tenderness, meningismus, lymphadenopathy Respiratory exam: Present: normal lung sounds bilaterally. Absent: respiratory distress, wheezes, rales, rhonchi, stridor Cardiovascular Exam: Present: regular rate, normal rhythm, normal heart sounds. Absent: systolic murmur, diastolic murmur, rubs, gallop, clicks GI/Abdominal exam: Present: soft, tenderness (Positive diffuse tenderness especially in right upper quadrant and epigastric region. Negative McBurney's point, negative Reyna sign), diminished bowel sounds. Absent: distended, guarding, rebound, rigid Extremities exam: Present: normal inspection, full ROM, normal capillary refill. Absent: tenderness, pedal edema, joint swelling, calf tenderness Back exam: Present: normal inspection Neurological exam: Present: alert, oriented X3, CN II-XII intact Psychiatric exam: Present: normal affect, normal mood Skin exam: Present: warm, dry, intact, normal color. Absent: rash 33 year old female with abdominal pain and N/V. CT-AP and RUQ US consistent with Cholecystitis -Regular Diet, NPO/midnight -Will plan for Cholecystectomy tomorrow -Rocephin/Flagyl -Pain and Nausea Control [facility] [phone] Past Medical History Past Medical History: No Reported History Additional Past Medical History / Comment(s): blighted ovum, hx pre eclampsia and gestational diabetes History of Any Multi-Drug Resistant Organisms: None Reported Past Surgical History: Section Additional Past Surgical History / Comment(s): c/s x3, D/C X3 Past Anesthesia/Blood Transfusion Reactions: No Reported Reaction Additional Past Anesthesia/Blood Transfusion Reaction / Comment(s): no hx blood transfusion Past Psychological History: No Psychological Hx Reported Smoking Status: Never smoker Past Alcohol Use History: None Reported Past Drug Use History: None Reported - Past Family History Father Family Medical History: No Reported History Medications and Allergies Home Medications Medication Instructions Recorded Confirmed Type No Known Home Medications 01/01/24 01/19/24 History Allergies Allergy/AdvReac Type Severity Reaction Status Date / Time No Known Allergies Allergy Verified 01/19/24 20:02 Surgical - Exam Vital Signs Temp Pulse Resp BP Pulse Ox 98.7 F 71 16 137/96 100 01/19/24 14:56 01/19/24 14:56 01/19/24 14:56 01/19/24 14:56 01/19/24 14:56 Results - Labs 01/19/24 16:16 01/19/24 16:16 Abnormal Lab Results - Last 24 Hours (Table) 01/19/24 01/19/24 01/19/24 Range/Units 16:16 16:16 16:16 WBC 12.7 H (3.8-10.6) k/uL Hgb 11.0 L (11.4-16.0) gm/dL MCV 77.5 L (80.0-100.0) fL MCH 23.9 L (25.0-35.0) pg MCHC 30.9 L (31.0-37.0) g/dL Neutrophils # 10.2 H (1.3-7.7) k/uL AST 54 H (14-36) U/L ALT 49 H (4-34) U/L Urine Appearance Cloudy H (Clear) Urine Protein Trace H (Negative) Urine Ketones Trace H (Negative) Urine Blood Moderate H (Negative) Ur Squamous Epith Cells 8 H (0-4) /hpf Urine Mucus Few H (None) /hpf Diabetes panel 01/19/24 Range/Units 16:16 Sodium 138 (137-145) mmol/L Potassium 4.5 (3.5-5.1) mmol/L Chloride 106 (98-107) mmol/L Carbon Dioxide 24 (22-30) mmol/L BUN 7 (7-17) mg/dL Creatinine 0.81 (0.52-1.04) mg/dL Glucose 96 (74-99) mg/dL Calcium 9.6 (8.4-10.2) mg/dL AST 54 H (14-36) U/L ALT 49 H (4-34) U/L Alkaline Phosphatase 68 (38-126) U/L Total Protein 8.0 (6.3-8.2) g/dL Albumin 4.5 (3.5-5.0) g/dL Calcium panel 01/19/24 Range/Units 16:16 Calcium 9.6 (8.4-10.2) mg/dL Albumin 4.5 (3.5-5.0) g/dL Pituitary panel 01/19/24 Range/Units 16:16 Sodium 138 (137-145) mmol/L Potassium 4.5 (3.5-5.1) mmol/L Chloride 106 (98-107) mmol/L Carbon Dioxide 24 (22-30) mmol/L BUN 7 (7-17) mg/dL Creatinine 0.81 (0.52-1.04) mg/dL Glucose 96 (74-99) mg/dL Calcium 9.6 (8.4-10.2) mg/dL Adrenal panel 01/19/24 Range/Units 16:16 Sodium 138 (137-145) mmol/L Potassium 4.5 (3.5-5.1) mmol/L Chloride 106 (98-107) mmol/L Carbon Dioxide 24 (22-30) mmol/L BUN 7 (7-17) mg/dL Creatinine 0.81 (0.52-1.04) mg/dL Glucose 96 (74-99) mg/dL Calcium 9.6 (8.4-10.2) mg/dL Total Bilirubin 0.8 (0.2-1.3) mg/dL AST 54 H (14-36) U/L ALT 49 H (4-34) U/L Alkaline Phosphatase 68 (38-126) U/L Total Protein 8.0 (6.3-8.2) g/dL Albumin 4.5 (3.5-5.0) g/dL
[2024-01-20] MEDS: ONDANSETRON 4 MG/2 ML VIAL IVP PRN (05:51)
[2024-01-20 09:52] LABS: Basophils # (A) 0.03 X 10*3/uL (0.00-0.10); Basophils % (A) 0.3 %; Eosinophils # (A) 0.13 X 10*3/uL (0.04-0.35); Eosinophils % (A) 1.4 %; HCT 31.8 % (37.2-46.3); HGB 9.5 g/dL (12.0-15.0); Lymphocytes # (A) 2.57 X 10*3/uL (0.90-5.00); Lymphocytes % (A) 27.4 %; MCH 22.7 pg (27.0-32.0); MCHC 29.9 g/dL (32.0-37.0); MCV 76.1 FL (80.0-97.0); Mean Platelet Volume 10.9 FL (9.5-12.2); Monocytes % (A) 8.5 %; NRBC Per 100 WBC 0 X 10*3/uL (0.00-0.01); Neutrophils # (A) 5.82 X 10*3/uL (1.80-7.70); Neutrophils % (A) 62.1 %; Platelet Count 358 X 10*3/uL (140-440); RBC 4.18 X 10*6/uL (4.10-5.20); RDW 15.3 % (11.5-14.5); WBC 9.38 X 10*3/uL (4.50-10.00)
[2024-01-20 10:01] LABS: ALT 43 U/L (8-44); AST 40 U/L (13-35); Albumin 3.7 g/dL (3.8-4.9); Albumin/Globulin Ratio 1.37 Ratio (1.60-3.17); Alkaline Phosphatase 57 U/L (41-126); BUN/Creat Ratio 8.38 Ratio (12.00-20.00); Bilirubin, Conjugated <0.20 mg/dL (0.20-0.40); Bilirubin,Unconjugated >0.30 mg/dL (0.20-1.00); Blood Urea Nitrogen 6.7 mg/dL (9.0-27.0); Calcium 8.8 mg/dL (8.7-10.3); Carbon Dioxide 23.5 mmol/L (21.6-31.8); Chloride 106 mmol/L (96-109); Globulin 2.7 g/dL (1.6-3.3); Glucose 95 mg/dL (70-110); Potassium 4.2 mmol/L (3.5-5.5); Sodium 138 mmol/L (135-145); Total Bilirubin 0.5 mg/dL (0.3-1.2); Total Protein 6.4 g/dL (6.2-8.2)
--- NOTE | 2024-01-21 10:20 | P.CONS ---
History of Present Illness - Reason for Consult Consult date: 01/21/24 Nausea and medical management - History of Present Illness This is a 33-year-old female well-known to the practice. She describes a 1 day history of nausea vomiting abdominal pain. Said it became worse and brought her to the emergency room. She reports that she recently had a spontaneous miscarriage in a dilatation curettage on January 01, she was concerned it was related to this. She did not have any fever chills, she had any chest pain shortness of breath nausea or vomiting at that time. Pain was quite severe and a emergency room CAT scan revealed cholecystitis. She is resting comfortably, complaining of only pain and occasional nausea. She is n.p.o. since midnight for her surgery which is planned at 1 PM today. Review of Systems All systems: negative Past Medical History Past Medical History: No Reported History Additional Past Medical History / Comment(s): blighted ovum, hx pre eclampsia and gestational diabetes History of Any Multi-Drug Resistant Organisms: None Reported Past Surgical History: Section Additional Past Surgical History / Comment(s): c/s x3, D/C X3 Past Anesthesia/Blood Transfusion Reactions: No Reported Reaction Additional Past Anesthesia/Blood Transfusion Reaction / Comm: no hx blood transfusion Past Psychological History: No Psychological Hx Reported Smoking Status: Never smoker Past Alcohol Use History: None Reported Past Drug Use History: None Reported - Past Family History Father Family Medical History: No Reported History Medications and Allergies Home Medications Medication Instructions Recorded Confirmed Type No Known Home Medications 01/01/24 01/19/24 History Allergies Allergy/AdvReac Type Severity Reaction Status Date / Time No Known Allergies Allergy Verified 01/19/24 20:02 Physical Exam Vitals: Vital Signs Temp Pulse Resp BP Pulse Ox 01/21/24 09:00 98.3 F 85 20 113/76 100 01/21/24 00:17 98.2 F 78 18 125/78 98 01/20/24 16:50 99.3 F 75 16 133/79 99 GENERAL: Fatigued 33-year-old female in no acute distress HEAD: Atraumatic, normocephalic. EYES: Pupils equal round and reactive to light, extraocular movements intact, sclera anicteric, conjunctiva are normal. ENT:nares patent, oropharynx clear without exudates. Moist mucous membranes. NECK: Normal range of motion, supple without lymphadenopathy or JVD, no thyromegaly LUNGS: Breath sounds clear to auscultation bilaterally and equal. No wheezes rales or rhonchi. HEART: Regular rate and rhythm without murmurs, rubs or gallops.S1S2 Normal ABDOMEN: Soft, right upper quadrant and midepigastric tenderness normoactive bowel sounds. No guarding, no rebound. No masses appreciated. EXTREMITIES: Normal range of motion, no pitting or edema. No clubbing or cyanosis. NEUROLOGICAL: Cranial nerves II through XII grossly intact. Normal speech, normal gait. PSYCH: Normal mood, normal affect. SKIN: Warm, Dry, normal turgor, no rashes or lesions noted. Results CBC & Chem 7: 01/20/24 05:22 01/20/24 05:22 CT scan - abdomen: report reviewed US - abdomen: report reviewed Assessment and Plan (1) H/O spontaneous , not currently Current Visit: Yes Status: Acute Code(s): Z87.59 - PERSONAL HISTORY OF COMP OF PREG, CHLDBRTH AND THE PUERP SNOMED Code(s): 960752965 (2) Cholecystitis with cholelithiasis Current Visit: Yes Status: Acute Code(s): K80.10 - CALCULUS OF GALLBLADDER W CHRONIC CHOLECYST W/O OBSTRUCTION SNOMED Code(s): 426909459 (3) Blighted ovum Current Visit: No Status: Acute Code(s): O02.0 - BLIGHTED OVUM AND NONHYDATIDIFORM MOLE SNOMED Code(s): 94476163 Plan: Her leukocytosis has resolved, her electrolytes are stable, she remains on pain medication hydromorphone, metronidazole and ceftriaxone for antibiotics and Zofran for nausea. She has been on normal saline 75 cc an hour which we will continue. Expect surgery at 1 PM, will follow with you, she appears medically stable at this point to undergo surgery.
[2024-01-21] MEDS: IV FLUID CONTINUATION 1,000 ML IV ONE ×4 (11:48→14:58)
[2024-01-21] MEDS: BUPIVACAINE (PF) 0.25% 30 ML VIAL SQ ONE (12:01)
[2024-01-21] MEDS: DEXAMETHASONE SOD PHOSPHATE 4 MG/ML 1 ML VIAL IVP STA (12:32)
[2024-01-21] MEDS ORDERED: ROPIVACAINE 5 MG/ML 30 ML VIAL ONE (12:58)
[2024-01-21] MEDS ORDERED: MIDAZOLAM 2 MG/2 ML VIAL ONE (12:58)
[2024-01-21] MEDS ORDERED: HYDROmorphone (PF) 1 MG/ML ONE (12:58)
[2024-01-21] MEDS ORDERED: SUCCINYLCHOLINE CHLORIDE 200 MG/10 ML VIAL IV ONE (12:58)
[2024-01-21] MEDS ORDERED: ROCURONIUM 10 MG/ML (5 ML VIAL) IV ONE (12:58)
[2024-01-21] MEDS ORDERED: LIDOCAINE 1% INJ 10MG/ML (20 ML MDV) ONE (12:58)
[2024-01-21] MEDS ORDERED: PROPOFOL 10 MG/ML 20 ML VIAL IV ONE (12:58)
[2024-01-21] MEDS ORDERED: PHENYLEPHRINE 10 MG/ML VIAL ONE (12:58)
[2024-01-21] MEDS ORDERED: SUGAMMADEX SODIUM 200 MG/2 ML SDV IV ONE (12:58)
[2024-01-21] MEDS ORDERED: fentaNYL (PF) 50 MCG/ML 2 ML AMP ONE (12:58)
[2024-01-21] MEDS: HEPARIN SODIUM,PORCINE 5,000 UNIT/ML 1 ML VIAL SQ ONE (13:01)
[2024-01-21] MEDS: LACTATED RINGERS 1,000 ML IV ONE (13:12)
--- NOTE | 2024-01-21 15:05 | P.OP ---
Date of Procedure: 01/21/24 Preoperative Diagnosis: Acute Cholecystitis Postoperative Diagnosis: Acute Cholecystitis Procedure(s) Performed: Robotic Cholecystectomy Anesthesia: MAC Surgeon: Harry Rodriguez Pathology: other (Gallbladder) Condition: stable Disposition: PACU Description of Procedure: The patient was brought to the operating suite and placed in the supine position. Anesthesia was given and endotracheal intubation was performed. The abdomen was prepped and draped in usual sterile fashion. A timeout was performed. An #11 blade was used to make an incision and Nguyen's point and a 5 mm optiview was used to gain access to the abdomen. Additional working 8 mm robotic ports were placed on the right side of the abdomen. The 5 mm port was replaced with a 12 mm port. The patient was positioned. The robot was docked and the operation was performed from the console. A hook cautery was used to isolate the cystic duct and cystic artery. A critical view of safety was obtained. Two clips were placed proximally and two clips were placed distally on the duct and artery. The artery and duct were divided. A hook cautery was then used to take the gallbladder off of the liver. There was some active bleeding from the liver which was eventually controlled. The gallbladder was removed with an endocatch through the 12 mm port. The ports were removed. Incisions were closed with #4-0 monocryl and skin glue was applied. This concluded the surgery. The patient tolerated the procedure well and was sent to the PACU in stable condition.
[2024-01-21] MEDS: HYDROmorphone 0.5 MG/0.5 ML SYRINGE IVP STA (15:16)
[2024-01-21] MEDS: MEPERIDINE 50 MG/ML SYRINGE IVP STA (15:42)
[2024-01-21] MEDS: fentaNYL (PF) 50 MCG/ML 2 ML AMP IVP ONE ×2 (15:51→16:17)
[2024-01-21] MEDS: KETOROLAC 15 MG/ML 1 ML VIAL IVP STA (16:26)
[2024-01-21 16:52] LABS: Basophils % (A) 0 %; Eosinophils # (A) 0.1 k/uL (0-0.7); Eosinophils % (A) 0 %; HCT 30.5 % (34.0-46.0); HGB 9.6 gm/dL (11.4-16.0); Hypochromasia Moderate; Lymphocytes # (A) 1.1 k/uL (1.0-4.8); Lymphocytes % (A) 7 %; MCH 24.1 pg (25.0-35.0); MCHC 31.5 g/dL (31.0-37.0); MCV 76.6 fL (80.0-100.0); Mean Platelet Volume 8.7; Microcytosis Slight; Monocytes # (A) 0.3 k/uL (0-1.0); Monocytes % (A) 2 %; Neutrophils # (A) 15.1 k/uL (1.3-7.7); Neutrophils % (A) 91 %; Platelet Count 384 k/uL (150-450); RBC 3.98 m/uL (3.80-5.40); RDW 15.3 % (11.5-15.5); WBC 16.6 k/uL (3.8-10.6)
[2024-01-21] MEDS: ACETAMINOPHEN IV (For NPO) 1,000 MG in EMPTY BAG 1 BAG IVPB ONE (17:18)
--- NOTE | 2024-01-21 19:45 | P.ANPRN ---
Procedure Note - Anesthesia - Nerve Block Performed Right Transversus Abdominis Single Time Out Performed: Yes Date of Procedure: 01/21/24 Location of Patient: PreOp Indication: Acute Post-Operative Pain, Dx/Pain Location (abdomen) Sedation Type: Sedate with meaningful contact maintained Preparation: Sterile Prep Position: Supine Catheter: None Needle Types: Pajunk Needle Gauge: 21 Ultrasound used to visualize needle placement: Yes Ultrasound used to observe medication spread: Yes Injectate: 0.5% Ropivacaine (see comment for volume) (30 cc) Blood Aspirated: No Pain Paresthesia on Injection Noted: No Resistance on Injection: Normal Image Stored and Saved: Yes Events: Uneventful and Well Tolerated
[2024-01-21] MEDS: HYDROcodone/APAP 10-325MG 1 EACH TAB PO PRN (20:14)
[2024-01-21 20:24] LABS: Basophils % (A) 0 %; Eosinophils % (A) 0 %; HCT 27.9 % (34.0-46.0); HGB 8.4 gm/dL (11.4-16.0); Hypochromasia Marked; Lymphocytes # (A) 0.6 k/uL (1.0-4.8); Lymphocytes % (A) 5 %; MCH 23.8 pg (25.0-35.0); MCHC 30.1 g/dL (31.0-37.0); MCV 79.1 fL (80.0-100.0); Mean Platelet Volume 8.3; Monocytes # (A) 0.5 k/uL (0-1.0); Monocytes % (A) 4 %; Neutrophils # (A) 10.6 k/uL (1.3-7.7); Neutrophils % (A) 90 %; Platelet Count 303 k/uL (150-450); RBC 3.53 m/uL (3.80-5.40); RDW 15.3 % (11.5-15.5); WBC 11.8 k/uL (3.8-10.6)
[2024-01-22 05:27] LABS: Basophils % (A) 0 %; Eosinophils # (A) 0.1 k/uL (0-0.7); Eosinophils % (A) 1 %; HGB 7.2 gm/dL (11.4-16.0); Hypochromasia Moderate; Lymphocytes # (A) 1.2 k/uL (1.0-4.8); Lymphocytes % (A) 16 %; MCH 24.3 pg (25.0-35.0); MCHC 31.4 g/dL (31.0-37.0); MCV 77.4 fL (80.0-100.0); Microcytosis Slight; Monocytes # (A) 0.6 k/uL (0-1.0); Monocytes % (A) 8 %; Neutrophils # (A) 5.2 k/uL (1.3-7.7); Neutrophils % (A) 73 %; Platelet Count 236 k/uL (150-450); RBC 2.97 m/uL (3.80-5.40); RDW 15.6 % (11.5-15.5); WBC 7.2 k/uL (3.8-10.6)
[2024-01-22 05:33] LABS: ALT 64 U/L (4-34); AST 89 U/L (14-36); African American GFR (CKD) >90 (>60 ml/min/1.73 sqM); Albumin 3.1 g/dL (3.5-5.0); Alkaline Phosphatase 44 U/L (38-126); Anion Gap 6 mmol/L; Bilirubin, Delta 0.1 mg/dL (0.0-0.2); Bilirubin,Unconjugated 0.4 mg/dL (0.0-1.1); Blood Urea Nitrogen 6 mg/dL (7-17); Calcium 8.4 mg/dL (8.4-10.2); Carbon Dioxide 24 mmol/L (22-30); Chloride 106 mmol/L (98-107); Glucose 99 mg/dL (74-99); Non-African American GFR(CKD) >90 (>60 ml/min/1.73 sqM); Potassium 4.2 mmol/L (3.5-5.1); Sodium 136 mmol/L (137-145); Total Bilirubin 0.5 mg/dL (0.2-1.3); Total Protein 5.8 g/dL (6.3-8.2)
[2024-01-22] MEDS: HYDROmorphone 1 MG/ML 1 ML SYRINGE IVP PRN (11:06)
[2024-01-22] MEDS: IRON POLYSACCHARIDES COMPLEX 150 MG CAP PO SCH (11:47)
[2024-01-22] MEDS: MULTIVITAMINS, THERA 1 EACH TAB PO SCH (11:47)
--- NOTE | 2024-01-22 12:58 | P.PN ---
Subjective Progress Note Date: 01/22/24 CHIEF COMPLAINT: Acute cholecystitis HISTORY OF PRESENT ILLNESS: Patient is postop day #1 status post robotic cholecystectomy. Patient reports having a lot of pain during the night and waking up frequently due to the pain. She denies any nausea or vomiting. She is having flatus. Patient complains of feeling very tired. Afebrile. Heart rate 101. WBC is down from 11.8-7.2 . Hgb is down from 8.4-7.2. Hemoglobin was 11 on admission. AST ALT slightly increased. Total bilirubin 0.5 alk phos 44 PHYSICAL EXAM: VITAL SIGNS: Reviewed. GENERAL: Well-developed in no acute distress. ABDOMEN: Soft. Nondistended. Tenderness mostly in the right upper quadrant with palpation. Incision sites clean dry and intact. No ecchymosis noted. NEUROLOGIC: Alert and oriented. Cranial nerves II through XII grossly intact. ASSESSMENT: 1. Acute cholecystitis 2. Anemia PLAN: -1 unit of blood ordered for anemia -Repeat CBC at noon ordered -Dilaudid increased to 1 mg every 3 hours as needed for pain -Continue antibiotics -Continue supportive care -Repeat CBC in a.m. -Continue Regular diet Physician Epic Application Coordinator note has been reviewed by physician. Signing provider agrees with the documented findings, assessment, and plan of care. Objective - Vital Signs Vital signs: Vital Signs Temp 99.5 F 01/22/24 12:00 Pulse 101 H 01/22/24 12:00 Resp 18 01/22/24 12:00 BP 115/76 01/22/24 12:00 Pulse Ox 100 01/22/24 12:00 FiO2 Intake & Output 01/21/24 01/22/24 01/22/24 18:59 06:59 18:59 Intake Total 1600 Output Total 400 1000 Balance 1200 -1000 Intake: IV 1600 Output: Urine 1000 Estimated Blood Loss 400 Other: # Voids 2 - Labs CBC & Chem 7: 01/22/24 04:59 01/22/24 04:59 Labs: Abnormal Lab Results - Last 24 Hours (Table) 01/21/24 01/21/24 01/22/24 Range/Units 16:33 20:08 04:59 WBC 16.6 H 11.8 H (3.8-10.6) k/uL RBC 3.53 L 2.97 L (3.80-5.40) m/uL Hgb 9.6 L 8.4 L 7.2 L (11.4-16.0) gm/dL Hct 30.5 L 27.9 L 23.0 L (34.0-46.0) % MCV 76.6 L 79.1 L 77.4 L (80.0-100.0) fL MCH 24.1 L 23.8 L 24.3 L (25.0-35.0) pg MCHC 30.1 L (31.0-37.0) g/dL RDW 15.6 H (11.5-15.5) % Neutrophils # 15.1 H 10.6 H (1.3-7.7) k/uL Lymphocytes # 0.6 L (1.0-4.8) k/uL Sodium (137-145) mmol/L BUN (7-17) mg/dL AST (14-36) U/L ALT (4-34) U/L Total Protein (6.3-8.2) g/dL Albumin (3.5-5.0) g/dL 01/22/24 Range/Units 04:59 WBC (3.8-10.6) k/uL RBC (3.80-5.40) m/uL Hgb (11.4-16.0) gm/dL Hct (34.0-46.0) % MCV (80.0-100.0) fL MCH (25.0-35.0) pg MCHC (31.0-37.0) g/dL RDW (11.5-15.5) % Neutrophils # (1.3-7.7) k/uL Lymphocytes # (1.0-4.8) k/uL Sodium 136 L (137-145) mmol/L BUN 6 L (7-17) mg/dL AST 89 H (14-36) U/L ALT 64 H (4-34) U/L Total Protein 5.8 L (6.3-8.2) g/dL Albumin 3.1 L (3.5-5.0) g/dL Assessment and Plan Assessment: 33 yo female s/p lap adan acute blood loss anemia transfuse 1 unit of packed red blood cells Time with Patient: Less than 30
--- NOTE | 2024-01-22 14:08 | P.PN ---
Subjective This is a 33-year-old female well-known to the practice. She describes a 1 day history of nausea vomiting abdominal pain. Said it became worse and brought her to the emergency room. She reports that she recently had a spontaneous miscarriage in a dilatation curettage on January 01, she was concerned it was related to this. She did not have any fever chills, she had any chest pain shortness of breath nausea or vomiting at that time. Pain was quite severe and a emergency room CAT scan revealed cholecystitis. She is resting comfortably, complaining of only pain and occasional nausea. She is n.p.o. since midnight for her surgery which is planned at 1 PM today. January 22, 2024: Patient is status post laparoscopic cholecystectomy postop day 1. She had her surgery yesterday at 1 PM. She had quite a bit of pain and overnight and was treated with IV Dilaudid and [place]. Since her admission on January 18 her hemoglobin is 11 and has since dropped down today to 7.2. She is microcytic with a MCV of 77.4. Platelets are normal as is WBC count now. There is no left shift but slight microcytosis and moderate hypochromasia consistent w ith iron deficiency chemistries today show a slight hyponatremia at 136 BUN is 6 creatinine 0.79 liver tests are slightly abnormal AST ALT being elevated today. Vital signs show a Tmax of 100.0 heart rate 90s to 100 blood pressure normal pulse oximetry normal. Currently patient is complaining of fatigue. She also has pain but it is improved. She does belch but denies flatus has not had a bowel movement. Has had little to eat. Surgery is tansfusing 1 unit packed red blood cells. She has been started on a multivitamin and iron at this time. Objective - Vital Signs Vital signs: Vital Signs Temp 99.0 F 01/22/24 13:43 Pulse 91 01/22/24 13:43 Resp 18 01/22/24 13:43 BP 124/80 01/22/24 13:43 Pulse Ox 99 01/22/24 13:43 FiO2 Intake & Output 01/21/24 01/22/24 01/22/24 18:59 06:59 18:59 Intake Total 1600 0 Output Total 400 1000 Balance 1200 -1000 0 Intake: IV 1600 Blood Product 0 Rc As-1 Unit 0 [id number] Output: Urine 1000 Estimated Blood Loss 400 Other: # Voids 2 - Exam GENERAL: 33-year-old female in no acute distress, pain is currently improved NECK: Normal range of motion, supple without lymphadenopathy or JVD, no thyromegaly LUNGS: Breath sounds clear to auscultation bilaterally and equal. No wheezes rales or rhonchi. HEART: Regular rate and rhythm without murmurs, rubs or gallops.S1S2 Normal ABDOMEN: Exam deferred due to recent surgery EXTREMITIES: Normal range of motion, no pitting or edema. No clubbing or cyanosis. NEUROLOGICAL: Cranial nerves II through XII grossly intact. Normal speech, normal gait. PSYCH: Normal mood, normal affect. SKIN: Warm, Dry, normal turgor, no rashes or lesions noted. - Labs CBC & Chem 7: 01/22/24 04:59 01/22/24 04:59 Labs: Abnormal Lab Results - Last 24 Hours (Table) 01/21/24 01/21/24 01/22/24 Range/Units 16:33 20:08 04:59 WBC 16.6 H 11.8 H (3.8-10.6) k/uL RBC 3.53 L 2.97 L (3.80-5.40) m/uL Hgb 9.6 L 8.4 L 7.2 L (11.4-16.0) gm/dL Hct 30.5 L 27.9 L 23.0 L (34.0-46.0) % MCV 76.6 L 79.1 L 77.4 L (80.0-100.0) fL MCH 24.1 L 23.8 L 24.3 L (25.0-35.0) pg MCHC 30.1 L (31.0-37.0) g/dL RDW 15.6 H (11.5-15.5) % Neutrophils # 15.1 H 10.6 H (1.3-7.7) k/uL Lymphocytes # 0.6 L (1.0-4.8) k/uL Sodium (137-145) mmol/L BUN (7-17) mg/dL AST (14-36) U/L ALT (4-34) U/L Total Protein (6.3-8.2) g/dL Albumin (3.5-5.0) g/dL Crossmatch 01/22/24 01/22/24 Range/Units 04:59 12:19 WBC (3.8-10.6) k/uL RBC (3.80-5.40) m/uL Hgb (11.4-16.0) gm/dL Hct (34.0-46.0) % MCV (80.0-100.0) fL MCH (25.0-35.0) pg MCHC (31.0-37.0) g/dL RDW (11.5-15.5) % Neutrophils # (1.3-7.7) k/uL Lymphocytes # (1.0-4.8) k/uL Sodium 136 L (137-145) mmol/L BUN 6 L (7-17) mg/dL AST 89 H (14-36) U/L ALT 64 H (4-34) U/L Total Protein 5.8 L (6.3-8.2) g/dL Albumin 3.1 L (3.5-5.0) g/dL Crossmatch See Detail Assessment and Plan (1) H/O spontaneous , not currently Current Visit: Yes Status: Acute Code(s): Z87.59 - PERSONAL HISTORY OF COMP OF PREG, CHLDBRTH AND THE PUERP SNOMED Code(s): 165711478 (2) Cholecystitis with cholelithiasis Current Visit: Yes Status: Acute Code(s): K80.10 - CALCULUS OF GALLBLADDER W CHRONIC CHOLECYST W/O OBSTRUCTION SNOMED Code(s): 498904912 (3) Blighted ovum Current Visit: No Status: Acute Code(s): O02.0 - BLIGHTED OVUM AND NONHYDATIDIFORM MOLE SNOMED Code(s): 92774899 (4) Microcytic anemia Current Visit: Yes Status: Acute Code(s): D50.9 - IRON DEFICIENCY ANEMIA, UNSPECIFIED SNOMED Code(s): 695198258 Plan: At this point patient undergo 1 unit of packed red blood cells, staff informing she lost approximately 40 cc of blood during her surgery. Most likely her anemi a is related to chronic iron deficiency, her recent spontaneous followed by the D&C, and the blood loss from her surgery. She also has some mild hemodilution. Will check iron studies B12 folic acid, surgery is controlling her pain with [place] and Dilaudid as time. Will continue to follow her with you and reevaluate in the next 24 hours.
[2024-01-22 16:18] LABS: Reticulocyte % 2.6 % (0.5-2.0)
[2024-01-23 06:21] LABS: Anisocytosis Slight; HCT 25.9 % (34.0-46.0); HGB 8.3 gm/dL (11.4-16.0); Hypochromasia Moderate; MCH 25.1 pg (25.0-35.0); MCHC 32.1 g/dL (31.0-37.0); MCV 77.9 fL (80.0-100.0); Mean Platelet Volume 9.3; Microcytosis Slight; Platelet Count 259 k/uL (150-450); Poikilocytosis Slight; RBC 3.32 m/uL (3.80-5.40); RDW 16.3 % (11.5-15.5); WBC 10.6 k/uL (3.8-10.6)
[2024-01-23 06:30] LABS: ALT 54 U/L (4-34); AST 53 U/L (14-36); African American GFR (CKD) >90 (>60 ml/min/1.73 sqM); Alkaline Phosphatase 49 U/L (38-126); Anion Gap 3 mmol/L; Blood Urea Nitrogen 3 mg/dL (7-17); Calcium 8.1 mg/dL (8.4-10.2); Carbon Dioxide 22 mmol/L (22-30); Chloride 110 mmol/L (98-107); Glucose 86 mg/dL (74-99); Non-African American GFR(CKD) >90 (>60 ml/min/1.73 sqM); Potassium 3.9 mmol/L (3.5-5.1); Sodium 135 mmol/L (137-145); Total Bilirubin 0.8 mg/dL (0.2-1.3); Total Protein 5.8 g/dL (6.3-8.2)
[2024-01-23 11:10] LABS: % Iron Saturation 7.32 (12.00-45.00); Ferritin 14.7 ng/mL (10.0-291.0)
[2024-01-23 12:20] LABS: Anisocytosis Slight; HCT 26.5 % (34.0-46.0); HGB 8.4 gm/dL (11.4-16.0); Hypochromasia Moderate; MCH 24.7 pg (25.0-35.0); MCHC 31.6 g/dL (31.0-37.0); MCV 78.2 fL (80.0-100.0); Mean Platelet Volume 8.5; Microcytosis Slight; Platelet Count 263 k/uL (150-450); Poikilocytosis Slight; RBC 3.38 m/uL (3.80-5.40); RDW 16.5 % (11.5-15.5); WBC 10.7 k/uL (3.8-10.6)
[2024-01-23 12:26] VITALS: BP 117/78; PULSE 96; RESP 18; TEMP 98.8
--- NOTE | 2024-01-23 13:20 | P.DS ---
Providers Date of admission: 01/19/24 20:59 Expected date of discharge: 01/23/24 Attending physician: Harry Rodriguez DO Consults: 01/21/24 08:43 Consult Physician Stat Consulting Provider: Taras Ratliff Jr Consult Reason/Comments: Cholecystitis Do you want consulting provider notified?: Yes Primary care physician: [facility] Course: Discharge diagnosis 1. Acute cholecystitis 2. Acute blood loss anemia after surgery Hospital course This is a 33-year-old female presenting with nausea vomiting abdominal pain. Her CAT scan and ultrasound were consistent with cholecystitis. Patient is status post robotic cholecystectomy. Patient did have acute blood loss anemia after surgery and required a unit of blood. Hemoglobin is stable at 8.4. Patient's pain is controlled. She is tolerating diet. She has been up and ambulating. She is afebrile. She is stable for discharge. Please refer to chart for any further details. Physician Aerospace Project Engineer note has been reviewed by physician. Signing provider agrees with the documented findings, assessment, and plan of care. Patient Condition at Discharge: Stable Plan - Discharge Summary New Discharge Prescriptions: New Docusate [Colace] 100 mg PO BID #30 capsule HYDROcodone/APAP 7.5-325MG [[place] 7.5-325] 1 tab PO Q6HR PRN 3 Days #12 tab PRN Reason: Pain Discharge Medication List Docusate [Colace] 100 mg PO BID #30 capsule 01/23/24 [Rx] HYDROcodone/APAP 7.5-325MG [[place] 7.5-325] 1 tab PO Q6HR PRN 3 Days #12 tab 01/23/24 [Rx] Follow up Appointment(s)/Referral(s): Walter Amato MD [Medical Doctor] - 1-2 days Taras Ratliff Jr, DO [Primary Care Provider] - 1 Week Harry Rodriguez DO [Medical Doctor] - 1 Week Patient Instructions/Handouts: Cholecystitis (ED) Activity/Diet/Wound Care/Special Instructions: No driving while taking [place] No lifting over 10 pounds You may shower. No soaking or tub baths for 2 weeks Very light activity until you are reevaluated at your follow up appointment with your surgeon Discharge Disposition: HOME SELF-CARE
--- NOTE | 2024-01-25 14:43 | P.PN ---
Subjective Progress Note Date: 01/23/24 This is a 33-year-old female well-known to the practice. She describes a 1 day history of nausea vomiting abdominal pain. Said it became worse and brought her to the emergency room. She reports that she recently had a spontaneous miscarriage in a dilatation curettage on January 01, she was concerned it was related to this. She did not have any fever chills, she had any chest pain shortness of breath nausea or vomiting at that time. Pain was quite severe and a emergency room CAT scan revealed cholecystitis. She is resting comfortably, complaining of only pain and occasional nausea. She is n.p.o. since midnight for her surgery which is planned at 1 PM today. January 22, 2024: Patient is status post laparoscopic cholecystectomy postop day 1. She had her surgery yesterday at 1 PM. She had quite a bit of pain and overnight and was treated with IV Dilaudid and [place]. Since her admission on January 18 her hemoglobin is 11 and has since dropped down today to 7.2. She is microcytic with a MCV of 77.4. Platelets are normal as is WBC count now. There is no left shift but slight microcytosis and moderate hypochromasia consistent with iron deficiency chemistries today show a slight hyponatremia at 136 BUN is 6 creatinine 0.79 liver tests are slightly abnormal AST ALT being elevated toda y. Vital signs show a Tmax of 100.0 heart rate 90s to 100 blood pressure normal pulse oximetry normal. Currently patient is complaining of fatigue. She also has pain but it is improved. She does belch but denies flatus has not had a bowel movement. Has had little to eat. Surgery is tansfusing 1 unit packed red blood cells. She has been started on a multivitamin and iron at this time. 01/23/2024 status post 1 unit of packed RBCs, hemoglobin currently 8.3, platelets 263. Iron studies pending. Denies chest pain, palpitations or shortness of breath. Currently denies pain. Patient has been up ambulating, tolerating exertion well. Denies lightheadedness, dizziness or focal deficits. Tolerating diet, denies nausea vomiting or diarrhea. Objective - Vital Signs Vital signs: Vital Signs Temp 98.8 F 01/23/24 12:00 Pulse 96 01/23/24 12:00 Resp 18 01/23/24 12:00 BP 117/78 01/23/24 12:00 Pulse Ox 98 01/23/24 12:00 FiO2 Intake & Output 01/22/24 01/23/24 01/23/24 18:59 06:59 18:59 Intake Total 510 Balance 510 Intake: Blood Product 310 Rc As-1 Unit 310 [id number] Other 200 Rc As-1 Unit 200 [id number] Other: # Voids 3 2 1 - Exam GENERAL: Alert and orient x 3, sitting up in bed, no acute distress. NECK: Supple, no JVD, LUNGS: Unlabored, equal air entry, clear to auscultation. HEART: Regular rate and rhythm without murmurs, rubs or gallops.S1S2 Normal ABDOMEN: Exam deferred due to recent surgery EXTREMITIES: no pitting or edema. No clubbing or cyanosis. No calf tenderness. NEUROLOGICAL: Cranial nerves II through XII grossly intact. No focal deficits. SKIN: Warm, Dry, no rashes noted. - Labs CBC & Chem 7: 01/23/24 12:08 01/23/24 06:00 Labs: Abnormal Lab Results - Last 24 Hours (Table) 01/22/24 01/22/24 01/22/24 Range/Units 04:59 04:59 12:19 WBC (3.8-10.6) k/uL RBC (3.80-5.40) m/uL Hgb (11.4-16.0) gm/dL Hct (34.0-46.0) % MCV (80.0-100.0) fL MCH (25.0-35.0) pg RDW (11.5-15.5) % Retic Count 2.6 H (0.5-2.0) % Sodium (137-145) mmol/L Chloride (98-107) mmol/L BUN (7-17) mg/dL Calcium (8.4-10.2) mg/dL Iron 30 L (50-170) UG/DL % Saturation 7.32 L (12.00-45.00) AST (14-36) U/L ALT (4-34) U/L Total Protein (6.3-8.2) g/dL Albumin (3.5-5.0) g/dL Crossmatch See Detail 01/23/24 01/23/24 01/23/24 Range/Units 06:00 06:00 12:08 WBC 10.7 H (3.8-10.6) k/uL RBC 3.32 L 3.38 L (3.80-5.40) m/uL Hgb 8.3 L 8.4 L (11.4-16.0) gm/dL Hct 25.9 L 26.5 L (34.0-46.0) % MCV 77.9 L 78.2 L (80.0-100.0) fL MCH 24.7 L (25.0-35.0) pg RDW 16.3 H 16.5 H (11.5-15.5) % Retic Count (0.5-2.0) % Sodium 135 L (137-145) mmol/L Chloride 110 H (98-107) mmol/L BUN 3 L (7-17) mg/dL Calcium 8.1 L (8.4-10.2) mg/dL Iron (50-170) UG/DL % Saturation (12.00-45.00) AST 53 H (14-36) U/L ALT 54 H (4-34) U/L Total Protein 5.8 L (6.3-8.2) g/dL Albumin 3.0 L (3.5-5.0) g/dL Crossmatch Assessment and Plan Assessment: (1) H/O spontaneous , not currently Current Visit: Yes Status: Acute Code(s): Z87.59 - PERSONAL HISTORY OF COMP OF PREG, CHLDBRTH AND THE PUERP SNOMED Code(s): 235938772 (2) Cholecystitis with cholelithiasis, status post robotic cholecystectomy Current Visit: Yes Status: Acute Code(s): K80.10 - CALCULUS OF GALLBLADDER W CHRONIC CHOLECYST W/O OBSTRUCTION SNOMED Code(s): 744185204 (3) Blighted ovum Current Visit: No Status: Acute Code(s): O02.0 - BLIGHTED OVUM AND NONHYDATIDIFORM MOLE SNOMED Code(s): 28713033 (4) Microcytic anemia, suspect iron deficiency Current Visit: Yes Status: Acute Code(s): D50.9 - IRON DEFICIENCY ANEMIA, UNSPECIFIED SNOMED Code(s): 145319390 (5) acute blood loss anemia, status post 1 unit of packed red blood cells, EBL 40 cc of blood during her surgery. Most likely her anemia is related to chronic iron deficiency, her recent spontaneous followed by the D&C, and the blood loss from her surgery. She also has some mild hemodilution. Pending iron studies B12 folic acid results-to be reviewed in clinic with PCP. Plan: Continue on current medication regimen ,monitoring and symptomatic treatment. Significant clinical improvement. Discharge planning in progress as per general surgery. Pain management as per general surgery. Patient has been advised to follow-up with PCP in 1 week. Iron studies pending and will discuss results at follow-up visit. The impression and plan of care has been dictated as directed. : I performed a history and examination of this patient, discussed the same with the dictator. I agree with the dictator's note ,documented as a scribe. Any additional findings or plans will be noted.
--- NOTE | 2024-02-03 11:27 | CDI ---
Documentation Clarification Form Date: 02/03/2024 11:20:28 AM From: Paloma Ivan Phone: Admit Date: 01/19/2024 08:59:00 PM Patient Name: Joanna Chapman Visit Number: [id number] Discharge Date: 01/23/2024 02:28:00 PM ATTENTION: The Clinical Documentation Specialists (CDI) and [facility] Coding Staff appreciate your assistance in clarifying documentation. Please respond to the clarification below the line at the bottom and electronically sign. The CDI & [facility] Coding staff will review the response and follow-up if needed. Please note: Queries are made part of the Legal Health Record. If you have any questions, please contact the author of this message via ITS. Doctor/Provider: Harry Rodriguez The final diagnosis of the pathology report states: Acute and chronic cholecystitis with cholelithiasis. Coding guidelines do not allow coding professionals to code based on pathology results; therefore, clarification is requested. History/risk factors: 33yo F, Acute cholecystitis, ABLA, blighted ovum, fatigue, hyponatremia, recent miscarriage Clinical Indicators: abdominal painand N/V Treatment: Cholecystectomy Please clarify if you agree with the pathology report diagnosis of acute and chronic cholecystitis with cholelithiasis: [ ] Yes [ ] No [ ] Other (please specify) [ ] Unable to determine (Template Last Revised: May 2020) unable to determine MTDD
== END 2024-01-23 14:28 | disposition home or self-care (01) | DRG 418 ==
LOC: EC 14:55 → 6NMEDSUR 19:43 → OBSVTOIN 20:59 → 4FBP 01-20 01:33
PROVIDERS: ADMIT Surgery; ATTEND Surgery
PROC: 8E0W4CZ Robotic Assisted Procedure of Trunk Region, Percutaneous Endoscopic Approach (ICD-10-PCS; 2024-01-21)
PROC: 3E0T3BZ Introduction of Anesthetic Agent into Peripheral Nerves and Plexi, Percutaneous Approach (ICD-10-PCS; 2024-01-21)
PROC: 0FT44ZZ Resection of Gallbladder, Percutaneous Endoscopic Approach (ICD-10-PCS; principal; 2024-01-21 10:00)
PROC: 30233N1 Transfusion of Nonautologous Red Blood Cells into Peripheral Vein, Percutaneous Approach (ICD-10-PCS; 2024-01-22)
DX: K81.0 Acute cholecystitis (principal); D62 Acute posthemorrhagic anemia; E87.1 Hypo-osmolality and hyponatremia; O02.0 Blighted ovum and nonhydatidiform mole; R53.83 Other fatigue; Z87.59 Personal history of other complications of pregnancy, childbirth and the puerperium
CPT/HCPCS: 36415; 64488; 74177; 76705; 80048; 80053; 80076; 81001; 81025; 82150; 82607; 82728; 82746; 83540; 83550; 83605; 83690; 85025; 85027; 85045; 86850; 86900; 86901; 86920; 88304; 93005; 96365; 96375; 96376; 99285

== ENCOUNTER 2024-01-28 17:59 | Inpatient (IN) | payer BC ==
--- NOTE | 2024-01-28 18:39 | ED ---
Recheck HPI - General Chief Complaint: Fever Stated Complaint: Vomiting, fever, post op complications Time Seen by Provider: 01/28/24 18:37 Source: patient, RN notes reviewed, old records reviewed Mode of arrival: ambulatory Limitations: no limitations - History of Present Illness Initial Comments: This is a 33-year-old female to the ER for evaluation of postoperative fever with abdominal pain, patient having persistent symptoms here in the ER with na usea vomiting. Patient received gallbladder removal patient does feel warm lightheaded and pale MD Complaint: abnormal lab (Postoperative fever) -: days(s) Returns Today for: persistent/worsening pain related to initial visit Symptoms Since Prior Visit: worsening pain, worsening swelling, fever Associated Symptoms: fever, chills, malaise Treatments Prior to Arrival: other - Related Data Home Medications Medication Instructions Recorded Confirmed Ferrous Sulfate [Iron (65 MG 325 mg PO DAILY 01/29/24 01/29/24 Elemental)] Vit No.179/Iron/Folic 1 tab PO DAILY 01/29/24 01/29/24 [ Tablet] Previous Rx's Medication Instructions Recorded Docusate [Colace] 100 mg PO BID #30 capsule 01/23/24 Amoxic-Pot Clav 500-125 mg 1 tab PO Q12HR #10 tab 01/30/24 [Augmentin 500-125 mg] HYDROcodone/APAP 5-325MG [[place] 1 tab PO Q6HR PRN 3 Days #12 tab 01/31/24 5-325] Sennosides-Docusate Sodium 2 each PO BID tab 01/31/24 [Senokot-S] Allergies Allergy/AdvReac Type Severity Reaction Status Date / Time No Known Allergies Allergy Verified 01/29/24 09:21 Review of Systems ROS Statement: Those systems with pertinent positive or pertinent negative responses have been documented in the HPI. ROS Other: All systems not noted in ROS Statement are negative. Past Medical History Past Medical History: No Reported History Additional Past Medical History / Comment(s): blighted ovum, hx pre eclampsia and gestational diabetes History of Any Multi-Drug Resistant Organisms: None Reported Past Surgical History: Section, Cholecystectomy Additional Past Surgical History / Comment(s): c/s x3, D/C X3 Past Anesthesia/Blood Transfusion Reactions: No Reported Reaction Additional Past Anesthesia/Blood Transfusion Reaction / Comment(s): no hx blood transfusion Past Psychological History: No Psychological Hx Reported Smoking Status: Never smoker Past Alcohol Use History: None Reported Past Drug Use History: None Reported - Past Family History Father Family Medical History: No Reported History General Exam Limitations: no limitations General appearance: alert, in no apparent distress, anxious Head exam: Present: atraumatic, normocephalic, normal inspection Eye exam: Present: normal appearance, PERRL, EOMI. Absent: scleral icterus, conjunctival injection, periorbital swelling ENT exam: Present: normal exam, mucous membranes moist Neck exam: Present: normal inspection. Absent: tenderness, meningismus, lymphadenopathy Respiratory exam: Present: normal lung sounds bilaterally. Absent: respiratory distress, wheezes, rales, rhonchi, stridor Cardiovascular Exam: Present: regular rate, normal rhythm, normal heart sounds. Absent: systolic murmur, diastolic murmur, rubs, gallop, clicks GI/Abdominal exam: Present: soft, normal bowel sounds. Absent: distended, tenderness, guarding, rebound, rigid Extremities exam: Present: normal inspection, full ROM, normal capillary refill. Absent: tenderness, pedal edema, joint swelling, calf tenderness Back exam: Present: normal inspection Neurological exam: Present: alert, oriented X3, CN II-XII intact Psychiatric exam: Present: normal affect, normal mood Skin exam: Present: warm, dry, intact, normal color. Absent: rash Course Vital Signs 01/28/24 01/28/24 18:05 21:47 Temperature 99.1 F 98.7 F Pulse Rate 93 74 Respiratory 18 18 Rate Blood Pressure 132/86 128/76 O2 Sat by Pulse 98 99 Oximetry - Reevaluation(s) Reevaluation #1: 01/28/24 19:58 Medical records reviewed Reevaluation #2: 01/28/24 19:58 Patient symptoms are improved Reevaluation #3: Patient informed of results and questions answered Reevaluation #4: Was pt. sent in by a medical professional or institution (, PA, DIRECTOR OCCUPATIONAL, urgent care, hospital, or assisted...) When possible be specific @ -no Did you speak to anyone other than the patient for history (EMS, parent, family, police, friend...)? What history was obtained from this source @ -no Did you review nursing and triage notes (agree or disagree)? Why? @ -agree Are old charts reviewed (outside hosp., previous admission, EMS record, old EKG, old radiological studies, urgent care reports/EKG's, assisted records)? Report findings @ -yes Differential Diagnosis (chest pain, altered mental status, abdominal pain women, abdominal pain men, vaginal bleeding, weakness, fever, dyspnea, syncope, headache, dizziness, GI bleed, back pain, seizure, CVA, palpatations, mental health, musculoskeletal)? @ -prior EKG interpreted by me (3pts min.). @ -yes X-rays interpreted by me (1pt min.). @ -yes negative for acute disease CT interpreted by me (1pt min.). @ -no U/S interpreted by me (1pt. min.). @ -no What testing was considered but not performed or refused? (CT, X-rays, U/S, labs)? Why? @ -none What meds were considered but not given or refused? Why? @ -none Did you discuss the management of the patient with other professionals (professionals i.e. , PA, DIRECTOR OCCUPATIONAL, lab, RT, psych nurse, secondary social studies teacher, school occupational therapist, teacher, contract officer, senior case manager)? Give summary @ -no Was smoking cessation discussed for >3mins.? @ -no Was critical care preformed (if so, how long)? @ -no Were there social determinants of health that impacted care today? How? (Homelessness, low income, unemployed, alcoholism, drug addiction, transportation, low edu. Level, literacy, decrease access to med. care, assisted, rehab)? @ -none Was there de-escalation of care discussed even if they declined (Discuss DNR or withdrawal of care, Hospice)? DNR status @ -no What co-morbidities impacted this encounter? (DM, HTN, Smoking, COPD, CAD, Cancer, CVA, ARF, Chemo, Hep., AIDS, mental health diagnosis, sleep apnea, morbid obesity)? @ -none Was patient admitted / discharged? Hospital course, mention meds given and route, prescriptions, significant lab abnormalities, going to OR and other pertinent info. @ - 33 female to the ER for evaluation today. Patient will be admitted for further evaluation and management Admitted Undiagnosed new problem with uncertain prognosis? @ -no Drug Therapy requiring intensive monitoring for toxicity (Heparin, Nitro, Insulin, Cardizem)? @ -no Were any procedures done? @ -no Diagnosis/symptom? @ - Acute, or Chronic, or Acute on Chronic? @ -Acute Uncomplicated (without systemic symptoms) or Complicated (systemic symptoms)? @ -Complicated Side effects of treatment? @ -no Exacerbation, Progression, or Severe Exacerbation? @ -exacerbation Poses a threat to life or bodily function? How? (Chest pain, [place], NV, pneumonia, PE, COPD, DKA, ARF, appy, cholecystitis, CVA, Diverticulitis, Homicidal, Suicidal, threat to staff... and all critical care pts) @ -yes Reevaluation #5: Differential Fever: Pneumonia, viral URI, endocarditis, myocarditis, pericarditis, otitis, sinusitis, peritonsillar Abscess, retropharyngeal Abscess, epiglottitis, peritonitis, appendicitis, [place] cystitis, diverticulitis, hepatitis, colitis, UTI, PID, TOA, pyelonephritis, prostatitis, epididymitis, meningitis, encepha litis, pulmonary embolism, CVA, thyroid storm, pancreatitis, adrenal crisis, cavernous sinus thrombosis, this is not meant to be an all-inclusive list. - Consultations Consultation #1: Spoke with admitting physicians who agreed to admit this patient Medical Decision Making - Medical Decision Making 33 female to the ER for evaluation today. Patient will be admitted for further evaluation and management, patient has abdominal pain with postoperative fever - Lab Data Result diagrams: 01/31/24 03:29 01/30/24 07:47 Lab Results 01/28/24 01/28/24 01/28/24 Range/Units 18:54 18:54 18:54 WBC 10.9 H (3.8-10.6) k/uL RBC 3.50 L (3.80-5.40) m/uL Hgb 8.7 L (11.4-16.0) gm/dL Hct 27.4 L (34.0-46.0) % MCV 78.2 L (80.0-100.0) fL MCH 24.9 L (25.0-35.0) pg MCHC 31.8 (31.0-37.0) g/dL RDW 16.6 H (11.5-15.5) % Plt Count 460 H (150-450) k/uL MPV 7.8 Neutrophils % 62 % Lymphocytes % 26 % Monocytes % 5 % Eosinophils % 5 % Basophils % 0 % Neutrophils # 6.8 (1.3-7.7) k/uL Lymphocytes # 2.9 (1.0-4.8) k/uL Monocytes # 0.5 (0-1.0) k/uL Eosinophils # 0.6 (0-0.7) k/uL Basophils # 0.0 (0-0.2) k/uL Hypochromasia Marked Anisocytosis Slight Microcytosis Slight PT 10.2 (10.0-12.5) sec INR 0.9 (<1.2) APTT 24.2 (22.0-30.0) sec D-Dimer 6.13 H (<0.60) mg/L FEU Sodium 137 (137-145) mmol/L Potassium 4.2 (3.5-5.1) mmol/L Chloride 106 (98-107) mmol/L Carbon Dioxide 23 (22-30) mmol/L Anion Gap 8 mmol/L BUN 6 L (7-17) mg/dL Creatinine 0.74 (0.52-1.04) mg/dL Est GFR (CKD-EPI)AfAm >90 (>60 ml/min/1.73 sqM) Est GFR (CKD-EPI)NonAf >90 (>60 ml/min/1.73 sqM) Glucose 81 (74-99) mg/dL Calcium 8.8 (8.4-10.2) mg/dL Magnesium 1.8 (1.6-2.3) mg/dL Total Bilirubin 0.6 (0.2-1.3) mg/dL AST 43 H (14-36) U/L ALT 37 H (4-34) U/L Alkaline Phosphatase 57 (38-126) U/L Troponin I (0.000-0.034) ng/mL NT-Pro-B Natriuret Pep 209 pg/mL Total Protein 6.9 (6.3-8.2) g/dL Albumin 3.7 (3.5-5.0) g/dL Lipase 70 (23-300) U/L Urine Color Urine Appearance (Clear) Urine pH (5.0-8.0) Ur Specific [place] (1.001-1.035) Urine Protein (Negative) Urine Glucose (UA) (Negative) Urine Ketones (Negative) Urine Blood (Negative) Urine Nitrite (Negative) Urine Bilirubin (Negative) Urine Urobilinogen (<2.0) mg/dL Ur Leukocyte Esterase (Negative) Urine RBC (0-5) /hpf Urine WBC (0-5) /hpf Ur Squamous Epith Cells (0-4) /hpf Hyaline Casts (0-2) /lpf Urine HCG, Qual (Not Detectd) 01/28/24 01/28/24 01/28/24 Range/Units 18:54 20:19 20:19 WBC (3.8-10.6) k/uL RBC (3.80-5.40) m/uL Hgb (11.4-16.0) gm/dL Hct (34.0-46.0) % MCV (80.0-100.0) fL MCH (25.0-35.0) pg MCHC (31.0-37.0) g/dL RDW (11.5-15.5) % Plt Count (150-450) k/uL MPV Neutrophils % % Lymphocytes % % Monocytes % % Eosinophils % % Basophils % % Neutrophils # (1.3-7.7) k/uL Lymphocytes # (1.0-4.8) k/uL Monocytes # (0-1.0) k/uL Eosinophils # (0-0.7) k/uL Basophils # (0-0.2) k/uL Hypochromasia Anisocytosis Microcytosis PT (10.0-12.5) sec INR (<1.2) APTT (22.0-30.0) sec D-Dimer (<0.60) mg/L FEU Sodium (137-145) mmol/L Potassium (3.5-5.1) mmol/L Chloride (98-107) mmol/L Carbon Dioxide (22-30) mmol/L Anion Gap mmol/L BUN (7-17) mg/dL Creatinine (0.52-1.04) mg/dL Est GFR (CKD-EPI)AfAm (>60 ml/min/1.73 sqM) Est GFR (CKD-EPI)NonAf (>60 ml/min/1.73 sqM) Glucose (74-99) mg/dL Calcium (8.4-10.2) mg/dL Magnesium (1.6-2.3) mg/dL Total Bilirubin (0.2-1.3) mg/dL AST (14-36) U/L ALT (4-34) U/L Alkaline Phosphatase (38-126) U/L Troponin I <0.012 (0.000-0.034) ng/mL NT-Pro-B Natriuret Pep pg/mL Total Protein (6.3-8.2) g/dL Albumin (3.5-5.0) g/dL Lipase (23-300) U/L Urine Color Colorless Urine Appearance Clear (Clear) Urine pH 6.5 (5.0-8.0) Ur Specific [place] 1.033 (1.001-1.035) Urine Protein Negative (Negative) Urine Glucose (UA) Negative (Negative) Urine Ketones Negative (Negative) Urine Blood Negative (Negative) Urine Nitrite Negative (Negative) Urine Bilirubin Negative (Negative) Urine Urobilinogen <2.0 (<2.0) mg/dL Ur Leukocyte Esterase Small H (Negative) Urine RBC 2 (0-5) /hpf Urine WBC 4 (0-5) /hpf Ur Squamous Epith Cells 2 (0-4) /hpf Hyaline Casts 1 (0-2) /lpf Urine HCG, Qual Not Detected (Not Detectd) 01/29/24 01/29/24 Range/Units 02:53 02:53 WBC 9.3 (3.8-10.6) k/uL RBC 3.26 L (3.80-5.40) m/uL Hgb 8.0 L (11.4-16.0) gm/dL Hct 25.7 L (34.0-46.0) % MCV 78.8 L (80.0-100.0) fL MCH 24.5 L (25.0-35.0) pg MCHC 31.0 (31.0-37.0) g/dL RDW 16.3 H (11.5-15.5) % Plt Count 425 (150-450) k/uL MPV 7.6 Neutrophils % 55 % Lymphocytes % 32 % Monocytes % 6 % Eosinophils % 5 % Basophils % 0 % Neutrophils # 5.1 (1.3-7.7) k/uL Lymphocytes # 2.9 (1.0-4.8) k/uL Monocytes # 0.6 (0-1.0) k/uL Eosinophils # 0.5 (0-0.7) k/uL Basophils # 0.0 (0-0.2) k/uL Hypochromasia Marked Anisocytosis Slight Microcytosis Slight PT (10.0-12.5) sec INR (<1.2) APTT (22.0-30.0) sec D-Dimer (<0.60) mg/L FEU Sodium 136 L (137-145) mmol/L Potassium 4.0 (3.5-5.1) mmol/L Chloride 110 H (98-107) mmol/L Carbon Dioxide 21 L (22-30) mmol/L Anion Gap 5 mmol/L BUN 5 L (7-17) mg/dL Creatinine 0.67 (0.52-1.04) mg/dL Est GFR (CKD-EPI)AfAm >90 (>60 ml/min/1.73 sqM) Est GFR (CKD-EPI)NonAf >90 (>60 ml/min/1.73 sqM) Glucose 73 L (74-99) mg/dL Calcium 8.3 L (8.4-10.2) mg/dL Magnesium (1.6-2.3) mg/dL Total Bilirubin 0.6 (0.2-1.3) mg/dL AST 37 H (14-36) U/L ALT 32 (4-34) U/L Alkaline Phosphatase 57 (38-126) U/L Troponin I (0.000-0.034) ng/mL NT-Pro-B Natriuret Pep pg/mL Total Protein 6.1 L (6.3-8.2) g/dL Albumin 3.0 L (3.5-5.0) g/dL Lipase (23-300) U/L Urine Color Urine Appearance (Clear) Urine pH (5.0-8.0) Ur Specific [place] (1.001-1.035) Urine Protein (Negative) Urine Glucose (UA) (Negative) Urine Ketones (Negative) Urine Blood (Negative) Urine Nitrite (Negative) Urine Bilirubin (Negative) Urine Urobilinogen (<2.0) mg/dL Ur Leukocyte Esterase (Negative) Urine RBC (0-5) /hpf Urine WBC (0-5) /hpf Ur Squamous Epith Cells (0-4) /hpf Hyaline Casts (0-2) /lpf Urine HCG, Qual (Not Detectd) - EKG Data -: EKG Interpreted by Me (EKG is sinus 90 UT 193 QRS 85 QTc 401) - Radiology Data Radiology results: report reviewed (CT chest CT abdomen pelvis negative for acute disease), image reviewed Disposition Clinical Impression: Abdominal pain, Postoperative fever Disposition: ADMITTED IP TO THIS HOSP Condition: Stable Is patient prescribed a controlled substance at d/c from ED?: No Time of Disposition: 21:00
[2024-01-28 19:06] LABS: Anisocytosis Slight; Basophils % (A) 0 %; Eosinophils # (A) 0.6 k/uL (0-0.7); Eosinophils % (A) 5 %; HCT 27.4 % (34.0-46.0); HGB 8.7 gm/dL (11.4-16.0); Hypochromasia Marked; Lymphocytes # (A) 2.9 k/uL (1.0-4.8); Lymphocytes % (A) 26 %; MCH 24.9 pg (25.0-35.0); MCHC 31.8 g/dL (31.0-37.0); MCV 78.2 fL (80.0-100.0); Mean Platelet Volume 7.8; Microcytosis Slight; Monocytes # (A) 0.5 k/uL (0-1.0); Monocytes % (A) 5 %; Neutrophils # (A) 6.8 k/uL (1.3-7.7); Neutrophils % (A) 62 %; Platelet Count 460 k/uL (150-450); RDW 16.6 % (11.5-15.5); WBC 10.9 k/uL (3.8-10.6)
[2024-01-28] MEDS: SODIUM CHLORIDE 0.9% 1,000 ML IV STA ×2 (19:13→19:14)
[2024-01-28] MEDS: ONDANSETRON 4 MG/2 ML VIAL IVP STA (19:14)
[2024-01-28] MEDS: MORPHINE SULFATE 4 MG/ML SYRINGE IV STA (19:15)
[2024-01-28 19:24] LABS: ALT 37 U/L (4-34); AST 43 U/L (14-36); African American GFR (CKD) >90 (>60 ml/min/1.73 sqM); Albumin 3.7 g/dL (3.5-5.0); Alkaline Phosphatase 57 U/L (38-126); Anion Gap 8 mmol/L; Blood Urea Nitrogen 6 mg/dL (7-17); Calcium 8.8 mg/dL (8.4-10.2); Carbon Dioxide 23 mmol/L (22-30); Chloride 106 mmol/L (98-107); Glucose 81 mg/dL (74-99); Lipase 70 U/L (23-300); Magnesium 1.8 mg/dL (1.6-2.3); Non-African American GFR(CKD) >90 (>60 ml/min/1.73 sqM); Potassium 4.2 mmol/L (3.5-5.1); Sodium 137 mmol/L (137-145); Total Bilirubin 0.6 mg/dL (0.2-1.3); Total Protein 6.9 g/dL (6.3-8.2)
[2024-01-28] MEDS: ACETAMINOPHEN IV (For NPO) 1,000 MG in EMPTY BAG 1 BAG IVPB STA (19:26)
[2024-01-28 19:30] LABS: INR 0.9 (<1.2); Partial Thromboplastin Time 24.2 sec (22.0-30.0); Prothrombin Time 10.2 sec (10.0-12.5)
[2024-01-28 19:32] LABS: NT-Pro-B-Type Natriuretic Pept 209 pg/mL
[2024-01-28] MEDS: SODIUM CHLORIDE 0.9% 500 ML 500 ML IV STA (20:07)
[2024-01-28 20:28] LABS: Appearance,Urine Clear (Clear); Bilirubin,Urine Negative (Negative); Blood,Urine Negative (Negative); Color,Urine Colorless; Glucose,Urine (UA) Negative (Negative); Hyaline Casts,Urine 1 /lpf (0-2); Ketones,Urine Negative (Negative); Leukocyte Esterase,Urine Small (Negative); Nitrite,Urine Negative (Negative); PH, Urine 6.5 (5.0-8.0); Protein,Urine Negative (Negative); RBC,Urine 2 /hpf (0-5); Specific Gravity,Urine 1.033 (1.001-1.035); Squamous Epithelial Cell,Urine 2 /hpf (0-4); Urobilinogen,Urine <2.0 mg/dL (<2.0); WBC,Urine 4 /hpf (0-5)
[2024-01-28] MEDS: KETOROLAC 15 MG/ML 1 ML VIAL IVP STA (20:33)
--- NOTE | 2024-01-28 20:36 | CT ---
EXAMINATION TYPE: CT abdomen pelvis w con DATE OF EXAM: 01/28/2024 7:50 PM COMPARISON: 05/21/2023. CLINICAL INDICATION: Female, 33 years old with history of cp; Recent adan. Vomiting bile and has a f ever. Pain. TECHNIQUE: Axial CT abdomen pelvis w con;Sagittal and coronal reformats were created on a separate w orkstation. Contrast used:100 ml mL of Isovue 370 with IV Contrast, (none if empty) Oral contrast used: without Oral Contrast (none if empty) CT DLP: combined 1742 mGycm, Automated exposure control for dose reduction was used. FINDINGS: LOWER CHEST: Unremarkable ABDOMEN LIVER: Unremarkable GALLBLADDER AND BILE DUCTS: Heterogenous appearance of the color foci with few foci of gas.. Low dens ity areas seen throughout the gallbladder fossa there is a fingerlike extension into the gallbladder fossa series 502 image 30. PANCREAS: Unremarkable. SPLEEN: Unremarkable. ADRENAL GLANDS: Unremarkable. KIDNEYS AND URETERS: No evidence of hydronephrosis or renal calculus. The ureters are unremarkable. PELVIS BLADDER: No evidence for wall thickening or mass given limitations of exam. REPRODUCTIVE: Unremarkable. ABDOMEN & PELVIS STOMACH AND BOWEL: No evidence of bowel obstruction. The appendix is normal. PERITONEUM/RETROPERITONEUM: No evidence of pneumoperitoneum. Some free fluid is tracking along the ri ght inferior aspect of the liver. VASCULATURE: No evidence of aortic aneurysm. MUSCULOSKELETAL: No acute osseous abnormalities LYMPH NODES: No gross evidence for lymphadenopathy. SOFT TISSUE/ABDOMINAL WALL: Unremarkable IMPRESSION: Heterogenous gallbladder fossa with few foci of gas, findings concerning for infection/organizing flu id collection such as abscess given provided history. Consider evaluation of the gallbladder fossa wi th ultrasound. There is a fingerlike extension extends into the liver possibly representing infection s. Further workup recommended. [facility], , 01/28/2024 8:34 PM
--- NOTE | 2024-01-28 20:40 | CT ---
EXAMINATION TYPE: CT angio chest DATE OF EXAM: 01/28/2024 7:52 PM COMPARISONS: None CLINICAL INDICATION: Female, 33 years old with history of cp; Recent adan. Vomiting bile and has a f ever. TECHNIQUE/CONTRAST: CTA scan of the thorax is performed with IV Contrast, patient injected with 100 ml mL of Isovue 370, MIP images are created and reviewed these are created on a separate workstation.. CT DLP: combined 1742 mGycm, Automated exposure control for dose reduction was used. FINDINGS: Pulmonary Artery: There is no evidence for a filling defect within the pulmonary vasculature to sugge st acute pulmonary embolism. The pulmonary artery is of normal size. Lungs/Pleura: No evidence of focal consolidation, pleural effusion or pneumothorax. Airway: Large airways are patent. Heart: Heart is within normal limits for size. Vasculature: No evidence of aortic aneurysm. Mediastinum: No gross evidence of adenopathy. Musculoskeletal: No acute osseous abnormalities Soft Tissues/lymph nodes: Unremarkable. Lower neck: No significant findings. IMPRESSION: 1. No evidence of pulmonary embolism. 2. No evidence for acute thoracic process. 3. See dedicated CT abdomen pelvis for findings regarding the gallbladder Follow up recommendations for incidental pulmonary nodules, if there are any, are per [employer] [employer] or [place]. [email or web address].org/articles/[email or web address]?lang=us [facility], , 01/28/2024 8:38 PM
[2024-01-28] MEDS ORDERED: NALOXONE 0.4 MG/ML 1 ML VIAL IV PRN (20:55)
[2024-01-28] MEDS ORDERED: IBUPROFEN 400 MG TAB PO PRN (20:55)
[2024-01-28] MEDS: MORPHINE SULFATE 4 MG/ML SYRINGE IV PRN (23:34)
[2024-01-29 03:48] LABS: Anisocytosis Slight; Basophils % (A) 0 %; Eosinophils # (A) 0.5 k/uL (0-0.7); Eosinophils % (A) 5 %; HCT 25.7 % (34.0-46.0); Hypochromasia Marked; Lymphocytes # (A) 2.9 k/uL (1.0-4.8); Lymphocytes % (A) 32 %; MCH 24.5 pg (25.0-35.0); MCV 78.8 fL (80.0-100.0); Mean Platelet Volume 7.6; Microcytosis Slight; Monocytes # (A) 0.6 k/uL (0-1.0); Monocytes % (A) 6 %; Neutrophils # (A) 5.1 k/uL (1.3-7.7); Neutrophils % (A) 55 %; Platelet Count 425 k/uL (150-450); RBC 3.26 m/uL (3.80-5.40); RDW 16.3 % (11.5-15.5); WBC 9.3 k/uL (3.8-10.6)
[2024-01-29 04:11] LABS: ALT 32 U/L (4-34); AST 37 U/L (14-36); African American GFR (CKD) >90 (>60 ml/min/1.73 sqM); Alkaline Phosphatase 57 U/L (38-126); Anion Gap 5 mmol/L; Blood Urea Nitrogen 5 mg/dL (7-17); Calcium 8.3 mg/dL (8.4-10.2); Carbon Dioxide 21 mmol/L (22-30); Chloride 110 mmol/L (98-107); Glucose 73 mg/dL (74-99); Non-African American GFR(CKD) >90 (>60 ml/min/1.73 sqM); Sodium 136 mmol/L (137-145); Total Bilirubin 0.6 mg/dL (0.2-1.3); Total Protein 6.1 g/dL (6.3-8.2)
[2024-01-29] MEDS: PANTOPRAZOLE 40 MG/10 ML VIAL IV SCH (09:17)
[2024-01-29] MEDS: ONDANSETRON 4 MG/2 ML VIAL IVP PRN ×2 (09:48→20:18)
--- NOTE | 2024-01-29 11:40 | US ---
EXAMINATION TYPE: US gallbladder DATE OF EXAM: 01/29/2024 COMPARISON: CT abdomen and pelvis in 2023, abdominal ultrasound 01/19/2024 CLINICAL INDICATION: Female, 33 years old with history of check fluid collection gallbladder fossa; p ost cholecystectomy pain, fever, fluid collection seen on CT TECHNIQUE: Grayscale and color Doppler imaging of the right upper quadrant was performed. 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 Enlarged liver which is difficult to pe netrate. There is a heterogenous fluid collection with air within the gallbladder fossa measuring up to 6.7 cm. No thick wall definitively identified. Reported pain in this region. Common bile duct is t he upper limits of normal for size. Right kidney demonstrates no hydronephrosis, nephrolithiasis or s olid mass. IMPRESSION: 1. Gas and fluid collection within the gallbladder fossa postcholecystectomy measuring up to 6.7 cm. Previously measured up to 7.4 cm. Raises concern for abscess versus postoperative fluid collection. 2. Hepatomegaly. [facility], , 01/29/2024 11:38 AM
[2024-01-29] MEDS: SODIUM FERRIC GLUCONAT-SUCROSE 125 MG in SODIUM CHLORIDE 0.9% 100 ML IVPB SCH (11:55)
--- NOTE | 2024-01-29 11:59 | P.HPIM ---
History of Present Illness H&P Date: 01/29/24 This is a 33-year-old female status post spontaneous miscarriage, D&C on 01/01, status post laparoscopic cholecystectomy 01/21/2024 returned to the hospital yesterday with complaints of Fevers of 101, chills, sweats, abdominal pain across bilateral upper quadrants accompanied by nausea and vomiting, that began yesterday morning upon awakening prior to eating breakfast. Reports last normal bowel movement was yesterday. On admission, Tmax 99.1, WBC 10.9.Abdomen pelvis CT reported heterogeneous appearance of the color foci with few foci of gas. Low-density areas seen throughout the gallbladder fossa, there is a fingerlike extension into the gallbladder fossa. Some free fluid is tracing along the right inferior aspect of the liver. Findings concerning for an infection/organizing fluid collection such as abscess. Ultrasound of gallbladder ordered. Postsurgery, last week, patient did require 1 unit of packed RBCs. Hemoglobin currently at 8, platelets 425. Baseline hemoglobin 11.5. elevated D-dimer, chest CTA reported no evidence of PE. Electrolytes and renal function stable. T. bili 0.6, AST 43, 37, ALT 37, 32. Denies chest pain, palpitations or shortness of breath. Troponins negative times. EKG reported sinus rhythm. UA negative. No further emesis. Denies lightheadedness, dizziness or focal deficits. Past Medical History Past Medical History: No Reported History Additional Past Medical History / Comment(s): blighted ovum, hx pre eclampsia and gestational diabetes History of Any Multi-Drug Resistant Organisms: None Reported Past Surgical History: Section, Cholecystectomy Additional Past Surgical History / Comment(s): c/s x3, D/C X3 Past Anesthesia/Blood Transfusion Reactions: No Reported Reaction Additional Past Anesthesia/Blood Transfusion Reaction / Comment(s): no hx blood transfusion Past Psychological History: No Psychological Hx Reported Smoking Status: Never smoker Past Alcohol Use History: None Reported Past Drug Use History: None Reported - Past Family History Father Family Medical History: No Reported History Medications and Allergies Home Medications Medication Instructions Recorded Confirmed Type Docusate [Colace] 100 mg PO BID #30 capsule 01/23/24 01/28/24 Rx Ferrous Sulfate [Feosol] 325 mg PO DAILY 01/29/24 01/29/24 History Vit No.179/Iron/Folic 1 tab PO DAILY 01/29/24 01/29/24 History [ Tablet] Allergies Allergy/AdvReac Type Severity Reaction Status Date / Time No Known Allergies Allergy Verified 01/29/24 09:21 Physical Exam Vitals: Vital Signs Temp Pulse Pulse Resp BP BP Pulse Ox 01/29/24 01:29 98.2 F 82 17 123/81 98 01/28/24 22:32 98.4 F 76 17 144/91 98 01/28/24 21:47 98.7 F 74 18 128/76 99 01/28/24 18:05 99.1 F 93 18 132/86 98 Intake and Output 01/28/24 01/29/24 01/29/24 22:59 06:59 14:59 Other: # Voids 1 Weight 86.183 kg 86.183 kg GENERAL: Alert and orient x 3, sitting up in bed, no acute distress. NECK: Supple, no JVD, LUNGS: Unlabored, equal air entry, clear to auscultation. HEART: Regular rate and rhythm without murmurs, rubs or gallops.S1S2 Normal ABDOMEN: Soft, nondistended, bilateral upper quadrant tenderness, positive bowel sounds EXTREMITIES: no pitting or edema. No clubbing or cyanosis. No calf tenderness. NEUROLOGICAL: Cranial nerves II through XII grossly intact. No focal deficits. SKIN: Warm, Dry, no rashes noted. Results CBC & Chem 7: 01/29/24 02:53 01/29/24 02:53 Labs: Abnormal Lab Results - Last 24 Hours (Table) 01/28/24 01/28/24 01/28/24 Range/Units 18:54 18:54 18:54 WBC 10.9 H (3.8-10.6) k/uL RBC 3.50 L (3.80-5.40) m/uL Hgb 8.7 L (11.4-16.0) gm/dL Hct 27.4 L (34.0-46.0) % MCV 78.2 L (80.0-100.0) fL MCH 24.9 L (25.0-35.0) pg RDW 16.6 H (11.5-15.5) % Plt Count 460 H (150-450) k/uL D-Dimer 6.13 H (<0.60) mg/L FEU Sodium (137-145) mmol/L Chloride (98-107) mmol/L Carbon Dioxide (22-30) mmol/L BUN 6 L (7-17) mg/dL Glucose (74-99) mg/dL Calcium (8.4-10.2) mg/dL AST 43 H (14-36) U/L ALT 37 H (4-34) U/L Total Protein (6.3-8.2) g/dL Albumin (3.5-5.0) g/dL Ur Leukocyte Esterase (Negative) 01/28/24 01/29/24 01/29/24 Range/Units 20:19 02:53 02:53 WBC (3.8-10.6) k/uL RBC 3.26 L (3.80-5.40) m/uL Hgb 8.0 L (11.4-16.0) gm/dL Hct 25.7 L (34.0-46.0) % MCV 78.8 L (80.0-100.0) fL MCH 24.5 L (25.0-35.0) pg RDW 16.3 H (11.5-15.5) % Plt Count (150-450) k/uL D-Dimer (<0.60) mg/L FEU Sodium 136 L (137-145) mmol/L Chloride 110 H (98-107) mmol/L Carbon Dioxide 21 L (22-30) mmol/L BUN 5 L (7-17) mg/dL Glucose 73 L (74-99) mg/dL Calcium 8.3 L (8.4-10.2) mg/dL AST 37 H (14-36) U/L ALT (4-34) U/L Total Protein 6.1 L (6.3-8.2) g/dL Albumin 3.0 L (3.5-5.0) g/dL Ur Leukocyte Esterase Small H (Negative) Thrombosis Risk Factor Assmnt - Choose All That Apply Any of the Below Risk Factors Present?: Yes Each Factor Represents 1 point: Obesity (BMI >25) Other Risk Factors: No Other congenital or acquired thrombophilia - If yes, enter type in comment: No Thrombosis Risk Factor Assessment Total Risk Factor Score: 1 Thrombosis Risk Factor Assessment Level: Low Risk Assessment and Plan Assessment: Nausea, vomiting, bilateral upper quadrant tenderness, fever, status post laparoscopic cholecystectomy 01/21/24. Imaging suggestive of possible air,developing infection, abscess , postoperative fluid collection gallbladder fossa. Fingerlike extension extends into the liver per CT. Leukocytosis Anemia, suspect iron deficient related to recent spontaneous / D&C , recent laparoscopic cholecystectomy on . Baseline hemoglobin 11.5 Morbid obesity, BMI 35 Plan: Continue on current medication resume ,monitoring and symptomatic treatme nt. NPO. Empiric antibiotics initiated, further adjustment as per general surgery. IV fluid hydration. IV Venofer ordered. Close monitoring of CBC, electrolytes and renal function repeat labs ordered for a.m. Aggressive pulmonary toileting with incentive spirometer ordered. DVT prophylaxis curr ently thigh-high teds ordered, held off on heparin subcu secondary to patient's anemia. Increase ambulation as tolerated. General surgery consult in place, ultrasound of gallbladder ordered,further recommendations pending. The impression and plan of care has been dictated as directed. : I performed a history and examination of this patient, discussed the same with the dictator. I agree with the dictator's note ,documented as a scribe. Any additional findings or plans will be noted.
[2024-01-29] MEDS: PIPERACILLIN-TAZOBACTAM 3.375 GM in SODIUM CHLORIDE 0.9% 100 ML IVPB SCH (13:02)
--- NOTE | 2024-01-29 13:39 | P.GSCN ---
History of Present Illness Consult date: 01/29/24 History of present illness: CHIEF COMPLAINT: Abdominal pain HISTORY OF PRESENT ILLNESS: This is a 33-year-old female who is status post robotic cholecystectomy for acute cholecystitis on 01/21/2024 during that hospitalization patient did receive a unit of blood for possible bleeding after surgery. Patient reports that since surgery she has had intermittent pain acro ss the upper abdomen. And then yesterday she started to have fevers of high as 101 as well as bilious emesis. Patient came into the ER for further evaluation. She had a CAT scan of the abdomen completed with results showing a heterogenous gallbladder fossa with few foci of gas, findings concerning for infection/organizing fluid collection such as abscess given provided history. There is fingerlike extension extends into the liver possibly representing infections. Patient is currently afebrile. WBC on admission was 10.9. She did have elevated D-dimer a CTA of the chest was done which was negative for PE. Surgical consult was placed due to postoperative pain and fever. PAST MEDICAL HISTORY: hx pre eclampsia and gestational diabetes, recent miscarriage PAST SURGICAL HISTORY: and cholecystectomy MEDICATIONS: See below ALLERGIES: See below SOCIAL HISTORY: No illicit drug use. REVIEW OF SYSTEMS: CONSTITUTIONAL: Denies fever or chills. HEENT: Denies blurred vision, vision changes, or eye pain. Denies hemoptysis CARDIOVASCULAR: Denies chest pain or pressure. RESPIRATORY: No shortness of breath. GASTROINTESTINAL: See HPI for pertinent findings HEMATOLOGIC: Denies bleeding disorders. GENITOURINARY: Denies any blood in urine or increased urinary frequency. SKIN: Denies pruitis. Denies rash. PHYSICAL EXAM: VITAL SIGNS: Reviewed GENERAL: Well-developed in no acute distress. HEENT: No sclera icterus. Extraocular movements grossly intact. Moist buccal mucosa. Head is atraumatic, normocephalic. No nasal drainage. ABDOMEN: Soft. Nondistended. Tenderness with palpation across the upper abdomen more so in the epigastric and right upper quadrant area. Incision sites are clean dry and intact. There is mild ecchymosis in the right flank incision that is improving. NEUROLOGIC: Alert and oriented. Cranial nerves II through XII grossly intact. LABORATORY DATA: WBC 10.9 down to 9.3 Hgb 8.7 down to 8.0 platelets 425 D-dimer 6.13 Sodium 136 potassium 4.0 creatinine 0.67 Total bilirubin 0.6 AST 43 down to 37 ALT 37 down to 32 normal alk phos 57 lipase 70 IMAGING: CT scan abdomen pelvis reports heterogeneous gallbladder fossa with few foci of gas, findings concerning for infection/organizing fluid collection such as abscess given provided history. Consider evaluation of the gallbladder fossa with ultrasound. There is fingerlike extension extends into the lower possibly representing infections. Chest CTA no evidence of PE ASSESSMENT: 1. Abdominal pain status post recent Robotic cholecystectomy for acute cholecystitis on 01/21/2024. Gallbladder fossa fluid collection noted on imaging 2. Anemia. Receiving IV iron per medicine service PLAN: -Abdominal ultrasound ordered for further evaluation of possible fluid collection in gallbladder fossa. Results report gas and fluid collection within the gallbladder fossa postcholecystectomy measuring up to 6.7 cm. Previously measured 7.4 cm raises concern for abscess versus postoperative fluid collection. Hepatomegaly. -Abdominal ultrasound results reviewed with Dr. Rodriguez. Will consult interventional radiology for drain placement -Continue IV antibiotics -Continue pain medication and antiemetics -start clear liquids Physician Senior Firewall Engineer note has been reviewed by physician. Signing provider agrees with the documented findings, assessment, and plan of care. Past Medical History Past Medical History: No Reported History Additional Past Medical History / Comment(s): blighted ovum, hx pre eclampsia and gestational diabetes History of Any Multi-Drug Resistant Organisms: None Reported Past Surgical History: Section, Cholecystectomy Additional Past Surgical History / Comment(s): c/s x3, D/C X3 Past Anesthesia/Blood Transfusion Reactions: No Reported Reaction Additional Past Anesthesia/Blood Transfusion Reaction / Comm: no hx blood transfusion Past Psychological History: No Psychological Hx Reported Smoking Status: Never smoker Past Alcohol Use History: None Reported Past Drug Use History: None Reported - Past Family History Father Family Medical History: No Reported History Medications and Allergies Home Medications Medication Instructions Recorded Confirmed Type Docusate [Colace] 100 mg PO BID #30 capsule 01/23/24 01/28/24 Rx Ferrous Sulfate [Feosol] 325 mg PO DAILY 01/29/24 01/29/24 History Vit No.179/Iron/Folic 1 tab PO DAILY 01/29/24 01/29/24 History [ Tablet] Allergies Allergy/AdvReac Type Severity Reaction Status Date / Time No Known Allergies Allergy Verified 01/29/24 09:21 Surgical - Exam Vital Signs Temp Pulse Resp BP Pulse Ox 99.1 F 93 18 132/86 98 01/28/24 18:05 01/28/24 18:05 01/28/24 18:05 01/28/24 18:05 01/28/24 18:05 Results - Labs 01/29/24 02:53 01/29/24 02:53 Abnormal Lab Results - Last 24 Hours (Table) 01/28/24 01/28/24 01/28/24 Range/Units 18:54 18:54 18:54 WBC 10.9 H (3.8-10.6) k/uL RBC 3.50 L (3.80-5.40) m/uL Hgb 8.7 L (11.4-16.0) gm/dL Hct 27.4 L (34.0-46.0) % MCV 78.2 L (80.0-100.0) fL MCH 24.9 L (25.0-35.0) pg RDW 16.6 H (11.5-15.5) % Plt Count 460 H (150-450) k/uL D-Dimer 6.13 H (<0.60) mg/L FEU Sodium (137-145) mmol/L Chloride (98-107) mmol/L Carbon Dioxide (22-30) mmol/L BUN 6 L (7-17) mg/dL Glucose (74-99) mg/dL Calcium (8.4-10.2) mg/dL AST 43 H (14-36) U/L ALT 37 H (4-34) U/L Total Protein (6.3-8.2) g/dL Albumin (3.5-5.0) g/dL Ur Leukocyte Esterase (Negative) 01/28/24 01/29/24 01/29/24 Range/Units 20:19 02:53 02:53 WBC (3.8-10.6) k/uL RBC 3.26 L (3.80-5.40) m/uL Hgb 8.0 L (11.4-16.0) gm/dL Hct 25.7 L (34.0-46.0) % MCV 78.8 L (80.0-100.0) fL MCH 24.5 L (25.0-35.0) pg RDW 16.3 H (11.5-15.5) % Plt Count (150-450) k/uL D-Dimer (<0.60) mg/L FEU Sodium 136 L (137-145) mmol/L Chloride 110 H (98-107) mmol/L Carbon Dioxide 21 L (22-30) mmol/L BUN 5 L (7-17) mg/dL Glucose 73 L (74-99) mg/dL Calcium 8.3 L (8.4-10.2) mg/dL AST 37 H (14-36) U/L ALT (4-34) U/L Total Protein 6.1 L (6.3-8.2) g/dL Albumin 3.0 L (3.5-5.0) g/dL Ur Leukocyte Esterase Small H (Negative) Diabetes panel 01/28/24 01/29/24 Range/Units 18:54 02:53 Sodium 137 136 L (137-145) mmol/L Potassium 4.2 4.0 (3.5-5.1) mmol/L Chloride 106 110 H (98-107) mmol/L Carbon Dioxide 23 21 L (22-30) mmol/L BUN 6 L 5 L (7-17) mg/dL Creatinine 0.74 0.67 (0.52-1.04) mg/dL Glucose 81 73 L (74-99) mg/dL Calcium 8.8 8.3 L (8.4-10.2) mg/dL AST 43 H 37 H (14-36) U/L ALT 37 H 32 (4-34) U/L Alkaline Phosphatase 57 57 (38-126) U/L Total Protein 6.9 6.1 L (6.3-8.2) g/dL Albumin 3.7 3.0 L (3.5-5.0) g/dL Calcium panel 01/28/24 01/29/24 Range/Units 18:54 02:53 Calcium 8.8 8.3 L (8.4-10.2) mg/dL Albumin 3.7 3.0 L (3.5-5.0) g/dL Pituitary panel 01/28/24 01/29/24 Range/Units 18:54 02:53 Sodium 137 136 L (137-145) mmol/L Potassium 4.2 4.0 (3.5-5.1) mmol/L Chloride 106 110 H (98-107) mmol/L Carbon Dioxide 23 21 L (22-30) mmol/L BUN 6 L 5 L (7-17) mg/dL Creatinine 0.74 0.67 (0.52-1.04) mg/dL Glucose 81 73 L (74-99) mg/dL Calcium 8.8 8.3 L (8.4-10.2) mg/dL Adrenal panel 01/28/24 01/29/24 Range/Units 18:54 02:53 Sodium 137 136 L (137-145) mmol/L Potassium 4.2 4.0 (3.5-5.1) mmol/L Chloride 106 110 H (98-107) mmol/L Carbon Dioxide 23 21 L (22-30) mmol/L BUN 6 L 5 L (7-17) mg/dL Creatinine 0.74 0.67 (0.52-1.04) mg/dL Glucose 81 73 L (74-99) mg/dL Calcium 8.8 8.3 L (8.4-10.2) mg/dL Total Bilirubin 0.6 0.6 (0.2-1.3) mg/dL AST 43 H 37 H (14-36) U/L ALT 37 H 32 (4-34) U/L Alkaline Phosphatase 57 57 (38-126) U/L Total Protein 6.9 6.1 L (6.3-8.2) g/dL Albumin 3.7 3.0 L (3.5-5.0) g/dL
[2024-01-29] MEDS: PANTOPRAZOLE 40 MG/10 ML VIAL IVP SCH (20:17)
[2024-01-30 08:47] LABS: African American GFR (CKD) >90 (>60 ml/min/1.73 sqM); Anion Gap 12 mmol/L; Blood Urea Nitrogen 7 mg/dL (7-17); Calcium 8.6 mg/dL (8.4-10.2); Carbon Dioxide 19 mmol/L (22-30); Chloride 107 mmol/L (98-107); Glucose 81 mg/dL (74-99); Magnesium 1.8 mg/dL (1.6-2.3); Non-African American GFR(CKD) >90 (>60 ml/min/1.73 sqM); Sodium 138 mmol/L (137-145)
[2024-01-30 10:30] LABS: Basophils # (A) 0.04 X 10*3/uL (0.00-0.10); Basophils % (A) 0.5 %; Eosinophils # (A) 0.39 X 10*3/uL (0.04-0.35); Eosinophils % (A) 4.4 %; HCT 27.8 % (37.2-46.3); HGB 8.1 g/dL (12.0-15.0); Lymphocytes # (A) 2.47 X 10*3/uL (0.90-5.00); MCH 22.9 pg (27.0-32.0); MCHC 29.1 g/dL (32.0-37.0); MCV 78.8 FL (80.0-97.0); Mean Platelet Volume 10.5 FL (9.5-12.2); Monocytes # (A) 0.76 X 10*3/uL (0.20-1.00); Monocytes % (A) 8.6 %; NRBC Per 100 WBC 0 X 10*3/uL (0.00-0.01); Neutrophils # (A) 5.13 X 10*3/uL (1.80-7.70); Platelet Count 426 X 10*3/uL (140-440); RBC 3.53 X 10*6/uL (4.10-5.20); RDW 16.3 % (11.5-14.5); WBC 8.83 X 10*3/uL (4.50-10.00)
[2024-01-30] MEDS: HYDROmorphone 0.5 MG/0.5 ML SYRINGE IVP STA (11:59)
--- NOTE | 2024-01-30 12:57 | P.PN ---
Subjective Progress Note Date: 01/30/24 H&P Date: 01/29/24 This is a 33-year-old female status post spontaneous miscarriage, D&C on 01/01, status post laparoscopic cholecystectomy 01/21/2024 returned to the hospital yesterday with complaints of Fevers of 101, chills, sweats, abdominal pain across bilateral upper quadrants accompanied by nausea and vomiting, that began yesterday morning upon awakening prior to eating breakfast. Reports last normal bowel movement was yesterday. On admission, Tmax 99.1, WBC 10.9.Abdomen pelvis CT reported heterogeneous appearance of the color foci with few foci of gas. Lo w-density areas seen throughout the gallbladder fossa, there is a fingerlike extension into the gallbladder fossa. Some free fluid is tracing along the right inferior aspect of the liver. Findings concerning for an infection/organizing fluid collection such as abscess. Ultrasound of gallbladder ordered. Postsurgery, last week, patient did require 1 unit of packed RBCs. Hemoglobin currently at 8, platelets 425. Baseline hemoglobin 11.5. elevated D-dimer, chest CTA reported no evidence of PE. Electrolytes and renal function stable. T. bili 0.6, AST 43, 37, ALT 37, 32. Denies chest pain, palpitations or shortness of breath. Troponins negative times. EKG reported sinus rhythm. UA negative. No further emesis. Denies lightheadedness, dizziness or focal deficits. 01/30/2024 ultrasound of gallbladder reviewed per general surgery, with drain per IR ordered/pending. Maintained on Zosyn. Tmax 99.1. Normal WBC. Receiving IV Venofer, hemoglobin 8.1, platelets 426. Electrolytes, renal function stable. Magnesium 1.8. Denies nausea, vomiting. Positive abdominal pain. Denies chest pain, palpitations or shortness of breath. Maintaining O2 sats in the 90s on room air. Objective - Vital Signs Vital signs: Vital Signs Temp 99.1 F 01/30/24 07:40 Pulse 90 01/30/24 11:50 Resp 16 01/30/24 11:50 BP 145/87 01/30/24 11:50 Pulse Ox 96 01/30/24 11:50 FiO2 Intake & Output 01/29/24 01/30/24 01/30/24 18:59 06:59 18:59 Other: Voiding Method Toilet Toilet # Voids 2 1 - Exam GENERAL: Alert and orient x 3, sitting up in bed, no acute distress. NECK: Supple, no JVD, LUNGS: Unlabored, equal air entry, clear to auscultation. HEART: Regular rate and rhythm without murmurs, rubs or gallops.S1S2 Normal ABDOMEN: Soft, nondistended, unchanged bilateral upper quadrant tenderness, laparoscopic sites well-approximated,+BS EXTREMITIES: no pitting or edema. No clubbing or cyanosis. No calf tenderness. NEUROLOGICAL: Cranial nerves II through XII grossly intact. No focal deficits. SKIN: Warm, Dry, no rashes noted. - Labs CBC & Chem 7: 01/30/24 07:47 01/30/24 07:47 Labs: Abnormal Lab Results - Last 24 Hours (Table) 01/30/24 01/30/24 Range/Units 07:47 07:47 RBC 3.53 L (4.10-5.20) X 10*6/uL Hgb 8.1 L (12.0-15.0) g/dL Hct 27.8 L (37.2-46.3) % MCV 78.8 L (80.0-97.0) FL MCH 22.9 L (27.0-32.0) pg MCHC 29.1 L (32.0-37.0) g/dL RDW 16.3 H (11.5-14.5) % Eosinophils # 0.39 H (0.04-0.35) X 10*3/uL Carbon Dioxide 19 L (22-30) mmol/L Microbiology - Last 24 Hours (Table) 01/28/24 22:45 Blood Culture - Preliminary Blood Assessment and Plan Assessment: Nausea, vomiting, bilateral upper quadrant tenderness, fever, status post laparoscopic cholecystectomy 01/21/24. Imaging suggestive of possible air,developing infection, abscess , postoperative fluid collection gallbladder fossa. Fingerlike extension extends into the liver per CT.ultrasound gallbladder reported fluid collection within gallbladder fossa po stcholecystectomy measuring up to 6.7 cm. Previously measured up to 7.4 cm . Leukocytosis Anemia, suspect iron deficient related to recent spontaneous / D&C , recent laparoscopic cholecystectomy on . Baseline hemoglobin 11.5 Morbid obesity, BMI 35 Plan: Continue on current medication resume ,monitoring and symptomatic treatment.CT-guided drain per IR pending. maintain on Zosyn-antibiotic management as per general surgery . IV Venofer. close monitoring of CBC, rep eat labs ordered for a.m. continue with aggressive pulmonary toileting with incentive spirometer reinforced. Increase ambulation as tolerated. The impression and plan of care has been dictated as directed. : I performed a history and examination of this patient, discussed the same with the dictator. I agree with the dictator's note ,documented as a scribe. Any additional findings or plans will be noted.
--- NOTE | 2024-01-30 13:17 | CT ---
EXAMINATION TYPE: CT guided abscess drainage DATE OF EXAM: 01/30/2024 12:37 PM COMPARISON: Prior CT/US. CLINICAL INDICATION:Female, 33 years old with history of gallbladder fossa fluid collection; drainage tube, H TECHNIQUE: CT-guided abscess drainage with pigtail catheter placement. CT DLP: 2319 mGycm, Automated exposure control for dose reduction was used. Contrast used: mL of , none Oral contrast used: none ATTENDING: Bobby Landers D.O. PROCEDURE: Informed consent was obtained. DLP administered was 2319 mGycm. Total fluoroscopy time was [address] localizer images were taken which showed safest allowable access to the fluid collection. The patient was prepped, draped in the usual sterile fashion, and locally anesthetized. A 18 x 20 cm Nolasco zeus blunt needle was used to access the gallbladder fossa with return of dark red fluid wi followed or. Over 0.038 Bentson guidewire exchange an 8.5 slovenian pig tail catheter was placed. Approximately 25 mL of dark red fluid was drained and sent to the lab for analysis. A vacuum draina ge bag was then attached the catheter. There was no blood loss and post-procedure hemostasis was ach ieved. The patient tolerated the procedure well without complication. Patient was transferred to [facility] general medical floor in stable condition. IMPRESSION: CT guided placement of a percutaneous pigtail drainage catheter into the gallbladder fossa. [facility] Murcia, , 01/30/2024 1:15 PM
[2024-01-30] MEDS: MAGNESIUM SULFATE-D5W PMX 1 GM in DEXTROSE/WATER 1 100ML.BAG IVPB ONE (13:21)
[2024-01-30] MEDS: SENNOSIDES-DOCUSATE SODIUM 1 EACH TAB PO SCH (13:22)
--- NOTE | 2024-01-30 14:01 | P.PN ---
Subjective Progress Note Date: 01/30/24 SURGICAL PROGRESS NOTE CHIEF COMPLAINT: Abdominal pain HISTORY OF PRESENT ILLNESS: Patient continues to have right upper quadrant abdominal pain. She had fluid collection noted in the gallbladder fossa on ultrasound. She is scheduled for drain placement by IR service today. Afebrile. WBC 8.83 Hgb 8.1 platelets 426 PHYSICAL EXAM: VITAL SIGNS: Reviewed. GENERAL: Well-developed in no acute distress. ABDOMEN: Soft. Nondistended. NEUROLOGIC: Alert and oriented. Cranial nerves II through XII grossly intact. ASSESSMENT: 1. Gallbladder fossa fluid collection 2. Status post recent robotic cholecystectomy for acute cholecystitis on 01/21/2024 3. Anemia PLAN: -Patient scheduled for IR drain placement for gallbladder fossa fluid collection -Continue antibiotics -Continue supportive care Physician Gas Main And Line Fitter note has been reviewed by physician. Signing provider agrees with the documented findings, assessment, and plan of care. Objective - Vital Signs Vital signs: Vital Signs Temp 99.1 F 01/30/24 07:40 Pulse 90 01/30/24 11:50 Resp 16 01/30/24 11:50 BP 145/87 01/30/24 11:50 Pulse Ox 96 01/30/24 11:50 FiO2 Intake & Output 01/29/24 01/30/24 01/30/24 18:59 06:59 18:59 Other: Voiding Method Toilet Toilet # Voids 2 1 - Labs CBC & Chem 7: 01/31/24 03:29 01/30/24 07:47 Labs: Abnormal Lab Results - Last 24 Hours (Table) 01/30/24 01/30/24 Range/Units 07:47 07:47 RBC 3.53 L (4.10-5.20) X 10*6/uL Hgb 8.1 L (12.0-15.0) g/dL Hct 27.8 L (37.2-46.3) % MCV 78.8 L (80.0-97.0) FL MCH 22.9 L (27.0-32.0) pg MCHC 29.1 L (32.0-37.0) g/dL RDW 16.3 H (11.5-14.5) % Eosinophils # 0.39 H (0.04-0.35) X 10*3/uL Carbon Dioxide 19 L (22-30) mmol/L Microbiology - Last 24 Hours (Table) 01/28/24 22:45 Blood Culture - Preliminary Blood Assessment and Plan Assessment: 33 yo female s/p cholecystectomy -post operative hematoma -s/p IR drain (yielded old blood) Time with Patient: Less than 30
[2024-01-30] MEDS: ACETAMINOPHEN TAB 325 MG TAB PO PRN (22:47)
[2024-01-31 03:24] VITALS: RESP 16
[2024-01-31 08:38] VITALS: BP 138/85; PULSE 93; TEMP 98.4
[2024-01-31 08:45] LABS: Basophils # (A) 0.04 X 10*3/uL (0.00-0.10); Basophils % (A) 0.5 %; Eosinophils # (A) 0.42 X 10*3/uL (0.04-0.35); Eosinophils % (A) 5.3 %; HCT 27.5 % (37.2-46.3); HGB 8.1 g/dL (12.0-15.0); Lymphocytes # (A) 2.35 X 10*3/uL (0.90-5.00); Lymphocytes % (A) 29.6 %; MCH 23.7 pg (27.0-32.0); MCHC 29.5 g/dL (32.0-37.0); MCV 80.4 FL (80.0-97.0); Mean Platelet Volume 10.6 FL (9.5-12.2); Monocytes # (A) 0.83 X 10*3/uL (0.20-1.00); Monocytes % (A) 10.5 %; NRBC Per 100 WBC 0 X 10*3/uL (0.00-0.01); Neutrophils # (A) 4.23 X 10*3/uL (1.80-7.70); Neutrophils % (A) 53.2 %; Platelet Count 481 X 10*3/uL (140-440); RBC 3.42 X 10*6/uL (4.10-5.20); RDW 16.5 % (11.5-14.5); WBC 7.94 X 10*3/uL (4.50-10.00)
--- NOTE | 2024-01-31 12:25 | P.DS ---
Providers Date of admission: 01/29/24 13:45 Expected date of discharge: 01/31/24 Attending physician: Taras Ratliff Consults: 01/28/24 20:55 Consult Physician Routine Consulting Provider: Jazmín Delgado Consult Reason/Comments: postOp Do you want consulting provider notified?: Yes Primary care physician: [facility] Course: Final Diagnoses: Nausea, vomiting, bilateral upper quadrant tenderness, fever, status post laparoscopic cholecystectomy 01/21/24. Imaging suggestive of possible air,developing infection, abscess , postoperative fluid collection gallbladder fossa. Fingerlike extension extends into the liver per CT.ultrasound gallbladder reported fluid collection within gallbladder fossa postcholecystectomy measuring up to 6.7 cm. Previously measured up to 7.4 cm . Status post drain placement. Leukocytosis Anemia, suspect iron deficient related to recent spontaneous / D&C , recent laparoscopic cholecystectomy on . Baseline hemoglobin 11.5 Morbid obesity, BMI 35 Hospital course:This is a 33-year-old female status post spontaneous miscarriage, D&C on 01/01, status post laparoscopic cholecystectomy 01/21/2024 returned to the hospital yesterday with complaints of Fevers of 101, chills, sweats, abdominal pain across bilateral upper quadrants accompanied by nausea and vomiting, that began yesterday morning upon awakening prior to eating breakfast. Reports last normal bowel movement was yesterday. On admission, Tmax 99.1, WBC 10.9.Abdomen pelvis CT reported heterogeneous appearance of the color foci with few foci of gas. Low-density areas seen throughout the gallbladder fossa, there is a fingerlike extension into the gallbladder fossa. Some free fluid is tracing along the right inferior aspect of the liver. Findings concerning for an infection/organizing fluid collection such as abscess. Ultrasound of gallbladder ordered. Postsurgery, last week, patient did require 1 unit of packed RBCs. Hemoglobin currently at 8, platelets 425. Baseline hemoglobin 11.5. elevated D-dimer, chest CTA reported no evidence of PE. Electrolytes and renal function stable. T. bili 0.6, AST 43, 37, ALT 37, 32. Denies chest pain, palpitations or shortness of breath. Troponins negative times. EKG reported sinus rhythm. UA negative. No further emesis. Denies lightheadedness, dizziness or focal deficits. 01/30/2024 ultrasound of gallbladder reviewed per general surgery, with drain per IR ordered/pending. Maintained on Zosyn. Tmax 99.1. Normal WBC. Receiving IV Venofer, hemoglobin 8.1, platelets 426. Electrolytes, renal function stable. Magnesium 1.8. Denies nausea, vomiting. Positive abdominal pain. Denies chest pain, palpitations or shortness of breath. Maintaining O2 sats in the 90s on room air. Status post drain placement as per IR, tolerated procedure well. 95 mL sanguinous output. Reports tenderness around drain insertion site .positive diet intake. Denies nausea vomiting. Afebrile, normal WBC. blood pressure stable. Denies chest pain, palpitations or shortness of breath. Ambulating in room, tolerating exertion well. Denies lightheadedness dizziness or focal deficits. Denies headache. Hemoglobin 8.1, platelets 481. Patient will be discharged home today in a stable condition with guarded prognosis with antibiotics/pain management/dressing changes as per general surgery. Close monitoring of hemoglobin outpatient with PCP. The impression and plan of care has been dictated as directed. : I performed a history and examination of this patient, discussed the same with the dictator. I agree with the dictator's note ,documented as a scribe. Any additional findings or plans will be noted. Patient Condition at Discharge: Stable Plan - Discharge Summary Discharge Rx Participant: No New Discharge Prescriptions: New Sennosides-Docusate Sodium [Senokot-S] 2 each PO BID tab Amoxic-Pot Clav 500-125 mg [Augmentin 500-125 mg] 1 tab PO Q12HR #10 tab HYDROcodone/APAP 5-325MG [[place] 5-325] 1 tab PO Q6HR PRN 3 Days #12 tab PRN Reason: Pain Continue Docusate [Colace] 100 mg PO BID #30 capsule Ferrous Sulfate [Iron (65 MG Elemental)] 325 mg PO DAILY Vit No.179/Iron/Folic [ Tablet] 1 tab PO DAILY Discharge Medication List Docusate [Colace] 100 mg PO BID #30 capsule 01/23/24 [Rx] Ferrous Sulfate [Iron (65 MG Elemental)] 325 mg PO DAILY 01/29/24 [History] Vit No.179/Iron/Folic [ Tablet] 1 tab PO DAILY 01/29/24 [History] Amoxic-Pot Clav 500-125 mg [Augmentin 500-125 mg] 1 tab PO Q12HR #10 tab 01/30/24 [Rx] HYDROcodone/APAP 5-325MG [[place] 5-325] 1 tab PO Q6HR PRN 3 Days #12 tab 01/31/24 [Rx] Sennosides-Docusate Sodium [Senokot-S] 2 each PO BID tab 01/31/24 [Rx] Follow up Appointment(s)/Referral(s): Taras Ratliff Jr, DO [Primary Care Provider] - 02/04/24 9:45 am Debra Carroll MD [STAFF PHYSICIAN] - 2 Weeks (office not answering Please call to schedule appointment) Harry Rodriguez DO [Medical Doctor] - 02/05/24 8:45 am Ambulatory/Diagnostic Orders: Complete Blood Count w/diff [LAB.AMB] Time Frame: 3 Days, Location: None Selected Patient Instructions/Handouts: Fever in Adults (ED) Activity/Diet/Wound Care/Special Instructions: Continue IS Q1hour while awake X 10 Discharge Disposition: HOME WITH HOME HEALTH SERVICES
[2024-01-31] MEDS: HYDROcodone/APAP 5-325MG 1 EACH TAB PO PRN (12:39)
--- NOTE | 2024-01-31 14:07 | P.PN ---
Subjective Progress Note Date: 01/31/24 SURGICAL PROGRESS NOTE CHIEF COMPLAINT: Abdominal pain HISTORY OF PRESENT ILLNESS: Patient reports her pain is feeling better after the drain was placed. Patient had 75 mL sanguinous output yesterday and 20 mL this morning. Patient denies any nausea or vomiting. She is tolerating diet. She does have pain at the insertion site of the drain. Afebrile. WBC is 7.94 hemoglobin stable at 8.1 platelets 481 PHYSICAL EXAM: VITAL SIGNS: Reviewed. GENERAL: Well-developed in no acute distress. ABDOMEN: Soft. Nondistended. NEUROLOGIC: Alert and oriented. Cranial nerves II through XII grossly intact. ASSESSMENT: 1. Gallbladder fossa fluid collection. Likely infected hematoma. Status post drain placement by IR service 2. Status post recent robotic cholecystectomy for acute cholecystitis on 01/21/2024 3. Anemia continue iron supplement PLAN: -Patient can be discharge from surgical standpoint -Rx for Augmentin at discharge written -Continue pain management -Recommend low-fat diet Physician Electrical Design Technologist note has been reviewed by physician. Signing provider agrees with the documented findings, assessment, and plan of care. Attestation Patient seen and examined at bedside. States she is feeling much better after drainage. Drain in place with hematoma appearing fluid. Surgically stable for discharge with removal of drain as an outpatient. She is scheduled to see us in office on Sunday. Jazmín Delgado DO Objective - Vital Signs Vital signs: Vital Signs Temp 98.4 F 01/31/24 08:34 Pulse 93 01/31/24 08:34 Resp 16 01/31/24 08:34 BP 138/85 01/31/24 08:34 Pulse Ox 98 01/31/24 01:55 FiO2 Intake & Output 01/30/24 01/31/24 01/31/24 18:59 06:59 18:59 Output Total 95 0 Balance -95 0 Output: Drainage 95 0 Abdomen 95 0 Other: Voiding Method Toilet Toilet Toilet # Voids 1 2 - Labs CBC & Chem 7: 01/31/24 03:29 01/30/24 07:47 Labs: Abnormal Lab Results - Last 24 Hours (Table) 01/31/24 Range/Units 03:29 RBC 3.42 L (4.10-5.20) X 10*6/uL Hgb 8.1 L (12.0-15.0) g/dL Hct 27.5 L (37.2-46.3) % MCH 23.7 L (27.0-32.0) pg MCHC 29.5 L (32.0-37.0) g/dL RDW 16.5 H (11.5-14.5) % Plt Count 481 H (140-440) X 10*3/uL Immature Gran # 0.07 H (0.00-0.04) X 10*3/uL Eosinophils # 0.42 H (0.04-0.35) X 10*3/uL Microbiology - Last 24 Hours (Table) 01/30/24 12:46 Gram Stain - Preliminary Aspirate Body Fluid Culture - Preliminary 01/28/24 22:45 Blood Culture - Preliminary Blood
== END 2024-01-31 14:11 | disposition home health service (06) | DRG 862 ==
LOC: EC 17:59 → 4SSUR 20:56 → OBSVTOIN 01-29 13:45
PROVIDERS: ADMIT Family Medicine; ATTEND Family Medicine
PROC: 0W9G30Z Drainage of Peritoneal Cavity with Drainage Device, Percutaneous Approach (ICD-10-PCS; principal; 2024-01-30)
DX: T81.43XA Infection following a procedure, organ and space surgical site, initial encounter (principal); K65.1 Peritoneal abscess; D72.829 Elevated white blood cell count, unspecified; D50.9 Iron deficiency anemia, unspecified; E66.01 Morbid (severe) obesity due to excess calories; Z68.35 Body mass index [BMI] 35.0-35.9, adult; Y84.8 Other medical procedures as the cause of abnormal reaction of the patient, or of later complication, without mention of misadventure at the time of the procedure; Z86.32 Personal history of gestational diabetes; Z90.49 Acquired absence of other specified parts of digestive tract; Z87.59 Personal history of other complications of pregnancy, childbirth and the puerperium
CPT/HCPCS: 36415; 71275; 74177; 75989; 76705; 80048; 80053; 81001; 81025; 83690; 83735; 83880; 84484; 85025; 85379; 85610; 85730; 87040; 87070; 87075; 87205; 93005; 94760; 96361; 96365; 96375; 99285

== ENCOUNTER → 2024-04-23 | Outpatient (CLI) | payer BC ==
--- NOTE | 2024-04-23 08:11 | US ---
EXAMINATION TYPE: US abdomen complete DATE OF EXAM: 04/23/2024 COMPARISON: 01/29/2024. CLINICAL INDICATION: Female, 33 years old with history of R74.8 ABNORMAL LEVELS OF OTHER SERUM ENZYME S; Abnormal labs. Gallbladder removed with history of fluid in GB fossa. TECHNIQUE: Grayscale and color Doppler imaging of the abdomen was performed. FINDINGS: EXAM MEASUREMENTS: Liver Length: 18.0 cm CBD: 0.4 cm, color Doppler imaging was utilized to isolate the common bile duct for measurement. Spleen: 10.5 cm Right Kidney: 10.1 x 4.6 x 4.0 cm Left Kidney: 10.8 x 5.1 x 4.2 cm Pancreas: wnl Liver: Appears echogenic and coarse. Enlarged in size. Gallbladder: Hypoechoic area seen at GB fossa = 4.4 x 2.2 x 1.6 cm. Echogenic focus seen with shado wing - 0.7 x 0.5 cm possibly representing surgical clips. Evidence for sonographic Reyna's sign: neg CBD: wnl Spleen: wnl Right Kidney: wnl, No hydronephrosis, calculi or masses seen Left Kidney: wnl, No hydronephrosis, calculi or masses seen Upper IVC: wnl Abd Aorta: No AAA visualized at time of scan The liver is homogenous. The intrahepatic portion of the IVC and proximal abdominal aorta are within normal limits. There is no evidence of cholelithiasis. Common bile duct is unremarkable. The visu alized portions of the pancreas are homogenous. The spleen is unremarkable. Kidneys are symmetric a nd free of hydronephrosis. No renal lesions are seen. IMPRESSION: 1. No evidence for acute process. 2. Hepatic steatosis with focal fatty sparing along the gallbladder fossa. [facility], , 04/23/2024 8:08 AM
== END | disposition home or self-care (01) ==
LOC: RADUSWWP 07:10
PROVIDERS: ATTEND Family Medicine
DX: K76.0 Fatty (change of) liver, not elsewhere classified (principal); R74.8 Abnormal levels of other serum enzymes; K76.89 Other specified diseases of liver; Z90.49 Acquired absence of other specified parts of digestive tract
CPT/HCPCS: 76700

== ENCOUNTER 2024-09-05 21:34 | Emergency (ER) | payer BC ==
[2024-09-05 21:38] VITALS: BP 137/88; PULSE 54; RESP 18; TEMP 98.7
--- NOTE | 2024-09-05 21:40 | ED ---
Recheck HPI - General Chief Complaint: Recheck/Abnormal Lab/Rx Stated Complaint: needs hcg levels Time Seen by Provider: 09/05/24 21:39 Source: patient, RN notes reviewed Mode of arrival: ambulatory Limitations: no limitations - History of Present Illness Initial Comments: 33-year-old female presenting to emergency department for encounter for recheck of her serum quantitative hCG level. Patient states that On 09/02/2024 she began to experience light vaginal spotting where she presented to the emergency department for ultrasound testing was completed that revealed a intrauterine . Patient states that she is presenting for a recheck of her hCG level. States that she has not experienced vaginal bleeding since the event on the third. Denies urinary complaints, cramping. - Related Data Home Medications Medication Instructions Recorded Confirmed Ferrous Sulfate [Iron (65 MG 325 mg PO DAILY 01/29/24 01/29/24 Elemental)] Vit No.179/Iron/Folic 1 tab PO DAILY 01/29/24 01/29/24 [ Tablet] Previous Rx's Medication Instructions Recorded Docusate [Colace] 100 mg PO BID #30 capsule 01/23/24 Amoxic-Pot Clav 500-125 mg 1 tab PO Q12HR #10 tab 01/30/24 [Augmentin 500-125 mg] HYDROcodone/APAP 5-325MG [[place] 1 tab PO Q6HR PRN 3 Days #12 tab 01/31/24 5-325] Sennosides-Docusate Sodium 2 each PO BID tab 01/31/24 [Senokot-S] Allergies Allergy/AdvReac Type Severity Reaction Status Date / Time No Known Allergies Allergy Verified 09/05/24 21:38 Review of Systems ROS Statement: Those systems with pertinent positive or pertinent negative responses have been documented in the HPI. ROS Other: All systems not noted in ROS Statement are negative. Past Medical History Past Medical History: No Reported History Additional Past Medical History / Comment(s): blighted ovum, hx pre eclampsia and gestational diabetes, misscariage x 2 History of Any Multi-Drug Resistant Organisms: None Reported Past Surgical History: Section, Cholecystectomy Additional Past Surgical History / Comment(s): c/s x3, D/C X3 Past Anesthesia/Blood Transfusion Reactions: No Reported Reaction Additional Past Anesthesia/Blood Transfusion Reaction / Comment(s): no hx blood transfusion Past Psychological History: No Psychological Hx Reported Smoking Status: Never smoker Past Alcohol Use History: None Reported Past Drug Use History: None Reported - Past Family History Father Family Medical History: No Reported History General Exam Limitations: no limitations General appearance: alert, in no apparent distress ENT exam: Present: normal exam, mucous membranes moist Neck exam: Present: normal inspection. Absent: tenderness, meningismus, lymphadenopathy Respiratory exam: Present: normal lung sounds bilaterally. Absent: respiratory distress, wheezes, rales, rhonchi, stridor Cardiovascular Exam: Present: regular rate, normal rhythm, normal heart sounds. Absent: systolic murmur, diastolic murmur, rubs, gallop, clicks GI/Abdominal exam: Present: soft, normal bowel sounds. Absent: distended, tenderness, guarding, rebound, rigid Back exam: Present: normal inspection. Absent: CVA tenderness (R), CVA tenderness (L) Course Vital Signs 09/05/24 21:36 Temperature 98.7 F Pulse Rate 54 L Respiratory 18 Rate Blood Pressure 137/88 O2 Sat by Pulse 96 Oximetry Medical Decision Making - Medical Decision Making Was pt. sent in by a medical professional or institution (, PA, OPERATIONS TECHNICIAN, urgent care, hospital, or usp...) When possible be specific @ -No Did you speak to anyone other than the patient for history (EMS, parent, family, police, friend...)? What history was obtained from this source @ -No Did you review nursing and triage notes (agree or disagree)? Why? @ -I reviewed and agree with nursing and triage notes Were old charts reviewed (outside hosp., previous admission, EMS record, old EKG, old radiological studies, urgent care reports/EKG's, usp records)? Report findings @ -Reviewed patient's laboratory testing from 09/02/2024 which revealed a hCG level over 21,000. Differential Diagnosis (chest pain, altered mental status, abdominal pain women, abdominal pain men, vaginal bleeding, weakness, fever, dyspnea, syncope, headache, dizziness, GI bleed, back pain, seizure, CVA, palpatations, mental health, musculoskeletal)? @ -Encounter for serum hCG testing EKG interpreted by me (3pts min.). @ -None X-rays interpreted by me (1pt min.). @ -None done CT interpreted by me (1pt min.). @ -None done U/S interpreted by me (1pt. min.). @ -None done What testing was considered but not performed or refused? (CT, X-rays, U/S, labs)? Why? @ -None What meds were considered but not given or refused? Why? @ -None Did you discuss the management of the patient with other professionals (professionals i.e. Dr., PA, OPERATIONS TECHNICIAN, lab, RT, psych nurse, social media campaign manager, steel tester, teacher, parking enforcement officer, patient case manager)? Give summary @ -No Was smoking cessation discussed for >3mins.? @ -No Was critical care preformed (if so, how long)? @ -No Were there social determinants of health that impacted care today? How? (Homelessness, low income, unemployed, alcoholism, drug addiction, transportation, low edu. Level, literacy, decrease access to med. care, fpc, rehab)? @ -No Was there de-escalation of care discussed even if they declined (Discuss DNR or withdrawal of care, Hospice)? DNR status @ -No What co-morbidities impacted this encounter? (DM, HTN, Smoking, COPD, CAD, Cancer, CVA, ARF, Chemo, Hep., AIDS, mental health diagnosis, sleep apnea, morbid obesity)? @ -None Was patient admitted / discharged? Hospital course, mention meds given and route, prescriptions, significant lab abnormalities, going to OR and other pertinent info. @ -Discharge. 33-year-old female presenting for recheck hCG quantitative level. [place] [address] [place] [address] [place] 09/02/24. Recommend patient follow-up as scheduled. Case discussed with Dr. Nunn Undiagnosed new problem with uncertain prognosis? @ -No Drug Therapy requiring intensive monitoring for toxicity (Heparin, Nitro, Ins ulin, Cardizem)? @ -No Were any procedures done? @ -No Diagnosis/symptom? @ -Encounter for serum quantitative hCG testing Acute, or Chronic, or Acute on Chronic? @ -Acute Uncomplicated (without systemic symptoms) or Complicated (systemic symptoms)? @ -Uncomplicated Side effects of treatment? @ -No Exacerbation, Progression, or Severe Exacerbation? @ -No Poses a threat to life or bodily function? How? (Chest pain, [place], [place], pneumonia, PE, COPD, DKA, ARF, appy, cholecystitis, CVA, Diverticulitis, Homicidal, Suicidal, threat to staff... and all critical care pts) @ -No - Lab Data Lab Results 09/05/24 Range/Units 22:05 HCG, Quant 99296.9 mIU/mL Disposition Clinical Impression: Encounter for laboratory test Disposition: HOME SELF-CARE Condition: Stable Additional Instructions: Please return to the Emergency Department if symptoms worsen or any other concerns. Is patient prescribed a controlled substance at d/c from ED?: No Referrals: Taras Ratliff Jr, [Primary Care Provider] - 1-2 days Time of Disposition: 21:55
== END 2024-09-05 22:18 | disposition home or self-care (01) ==
LOC: EC 21:34
DX: Z00.00 Encounter for general adult medical examination without abnormal findings (principal)
CPT/HCPCS: 36415; 84702; 99284

== ENCOUNTER 2024-10-06 17:48 | Emergency (ER) | payer BC ==
[2024-10-06 18:27] LABS: Bilirubin,Urine Negative (Negative); Blood,Urine Negative (Negative); Color,Urine Colorless; Glucose,Urine (UA) Negative (Negative); Ketones,Urine Negative (Negative); Leukocyte Esterase,Urine Negative (Negative); Nitrite,Urine Negative (Negative); PH, Urine 6.5 (5.0-8.0); Protein,Urine Negative (Negative); Specific Gravity,Urine 1.020 (1.001-1.035); Urobilinogen,Urine <2.0 mg/dL (<2.0)
--- NOTE | 2024-10-06 18:59 | ED ---
General Adult HPI - General Source: patient, RN notes reviewed Mode of arrival: ambulatory Limitations: no limitations <Prisca Garner - Last Filed: 10/06/24 18:57> <Joni Felipe - Last Filed: 10/06/24 20:38> - General Chief complaint: Abdominal Pain Stated complaint: 11 wks , abd/back pain Time Seen by Provider: 10/06/24 18:00 - History of Present Illness Initial comments: 34-year-old G7, P3 female presents to the emergency department for evaluation of abdominal cramping in . Patient notes that she is 11 weeks . She reports today she started experiencing lower abdominal cramping. She denies any vaginal bleeding. She follows with Dr. Vaughn at [facility] [employer]. (Prisca Garner) 34-year-old presents emergency department complaint abdominal cramping in . She is 11 weeks . Denies any bleeding denies any nausea vomiting no other associate complaints (Joni Felipe) - Related Data Home Medications Medication Instructions Recorded Confirmed Ferrous Sulfate [Iron (65 MG 325 mg PO DAILY 01/29/24 01/29/24 Elemental)] Vit No.179/Iron/Folic 1 tab PO DAILY 01/29/24 01/29/24 [ Tablet] Previous Rx's Medication Instructions Recorded Docusate [Colace] 100 mg PO BID #30 capsule 01/23/24 Amoxic-Pot Clav 500-125 mg 1 tab PO Q12HR #10 tab 01/30/24 [Augmentin 500-125 mg] HYDROcodone/APAP 5-325MG [Mckinney 1 tab PO Q6HR PRN 3 Days #12 tab 01/31/24 5-325] Sennosides-Docusate Sodium 2 each PO BID tab 01/31/24 [Senokot-S] Allergies Allergy/AdvReac Type Severity Reaction Status Date / Time No Known Allergies Allergy Verified 09/05/24 21:38 Review of Systems ROS Other: All systems not noted in ROS Statement are negative. <Prisca Garner - Last Filed: 10/06/24 18:57> ROS Other: All systems not noted in ROS Statement are negative. <Joni Felipe - Last Filed: 10/06/24 20:38> ROS Statement: Those systems with pertinent positive or pertinent negative responses have been documented in the HPI. Past Medical History Past Medical History: No Reported History Additional Past Medical History / Comment(s): blighted ovum, hx pre eclampsia and gestational diabetes, misscariage x 2 History of Any Multi-Drug Resistant Organisms: None Reported Past Surgical History: Section, Cholecystectomy Additional Past Surgical History / Comment(s): c/s x3, D/C X3 Past Anesthesia/Blood Transfusion Reactions: No Reported Reaction Additional Past Anesthesia/Blood Transfusion Reaction / Comment(s): no hx blood transfusion Past Psychological History: No Psychological Hx Reported Smoking Status: Never smoker Past Alcohol Use History: None Reported Past Drug Use History: None Reported - Past Family History Father Family Medical History: No Reported History <Prisca Garner - Last Filed: 10/06/24 18:57> General Exam Limitations: no limitations <Prisca Garner - Last Filed: 10/06/24 18:57> General appearance: alert, in no apparent distress Head exam: Present: atraumatic, normocephalic, normal inspection Eye exam: Present: normal appearance, PERRL, EOMI. Absent: scleral icterus, conjunctival injection, periorbital swelling Neck exam: Present: normal inspection. Absent: tenderness, meningismus, lymphadenopathy Respiratory exam: Present: normal lung sounds bilaterally. Absent: respiratory distress, wheezes, rales, rhonchi, stridor Cardiovascular Exam: Present: regular rate, normal rhythm, normal heart sounds. Absent: systolic murmur, diastolic murmur, rubs, gallop, clicks GI/Abdominal exam: Present: soft, normal bowel sounds. Absent: distended, tenderness, guarding, rebound, rigid <Joni Felipe - Last Filed: 10/06/24 20:38> - General Exam Comments Initial Comments: Visual Physical Exam Vital signs reviewed General: Well-appearing, nontoxic, no acute distress. Head: Normocephalic, atraumatic Eyes: PERRLA, EOMI ENT: Airway patent Chest: Nonlabored breathing Skin: No visual rash, normal skin tone Neuro: Alert and oriented 3 Musculoskeletal: No gross abnormalities (Prisca Garner) Course Vital Signs 10/06/24 17:58 Temperature 98.5 F Pulse Rate 89 Respiratory 20 Rate Blood Pressure 125/83 O2 Sat by Pulse 99 Oximetry Medical Decision Making <Prisca Garner - Last Filed: 10/06/24 18:57> - Lab Data Result diagrams: 10/06/24 19:11 10/06/24 19:11 <Joni Felipe - Last Filed: 10/06/24 20:38> - Medical Decision Making Quick note preformed and electronically signed by Prisca Garner PA-C (Prisca Garner) Was pt. sent in by a medical professional or institution (YONNY Michael, PRODUCTION SUPPLY EQUIPMENT TENDER, urgent care, hospital, or prison...) When possible be specific @ -No Did you speak to anyone other than the patient for history (EMS, parent, family, police, friend...)? What history was obtained from this source @ -No Did you review nursing and triage notes (agree or disagree)? Why? @ -I reviewed and agree with nursing and triage notes Were old charts reviewed (outside hosp., previous admission, EMS record, old EKG, old radiological studies, urgent care reports/EKG's, prison records)? Report findings @ -No old charts were reviewed Differential Diagnosis (chest pain, altered mental status, abdominal pain women, abdominal pain men, vaginal bleeding, weakness, fever, dyspnea, syncope, headache, dizziness, GI bleed, back pain, seizure, CVA, palpatations, mental health, musculoskeletal)? @ -Differential Abdominal Pain Women: Appendicitis, Cholecystitis, diverticulosis, ischemic bowel, pancreatitis, hepa titis, UTI, gastroenteritis, AAA, incarcerated hernia, bowel obstruction, constipation, inflammatory bowel, hepatitis, peptic ulcer disease, splenic infarction, perforated viscus, vulvitis, ovarian torsion, PID, kidney stone, placenta abruption, this is not meant to be an all-inclusive list EKG interpreted by me (3pts min.). @ -None X-rays interpreted by me (1pt min.). @ -None done CT interpreted by me (1pt min.). @ -None done U/S interpreted by me (1pt. min.). @ -Ultrasound shows intrauterine 11 weeks and 1 day heart rate 159 no complicating factors What testing was considered but not performed or refused? (CT, X-rays, U/S, labs)? Why? @ -None What meds were considered but not given or refused? Why? @ -None Did you discuss the management of the patient with other professionals (professionals i.e. Dr., PA, PRODUCTION SUPPLY EQUIPMENT TENDER, lab, RT, psych nurse, director of social work, advisory application developer, teacher, sailing officer, nurse outreach case manager)? Give summary @ -No Was smoking cessation discussed for >3mins.? @ -No Was critical care preformed (if so, how long)? @ -No Were there social determinants of health that impacted care today? How? (Homelessness, low income, unemployed, alcoholism, drug addiction, transportation, low edu. Level, literacy, decrease access to med. care, custodial, rehab)? @ -No Was there de-escalation of care discussed even if they declined (Discuss DNR or withdrawal of care, Hospice)? DNR status @ -No What co-morbidities impacted this encounter? (DM, HTN, Smoking, COPD, CAD, Cancer, CVA, ARF, Chemo, Hep., AIDS, mental health diagnosis, sleep apnea, morbid obesity)? @ -None Was patient admitted / discharged? Hospital course, mention meds given and route, prescriptions, significant lab abnormalities, going to OR and other pertinent info. @ -Discharge patient had negative lab work, urinalysis and ultrasound was unremarkable. Patient was discharged in stable condition Undiagnosed new problem with uncertain prognosis? @ -No Drug Therapy requiring intensive monitoring for toxicity (Heparin, Nitro, Insulin, Cardizem)? @ -No Were any procedures done? @ -No Diagnosis/symptom? @ -[Abdominal cramping Acute, or Chronic, or Acute on Chronic? @ -Acute Uncomplicated (without systemic symptoms) or Complicated (systemic symptoms)? @ -Complicated Side effects of treatment? @ -No Exacerbation, Progression, or Severe Exacerbation? @ -No Poses a threat to life or bodily function? How? (Chest pain, [place], [place], pneumonia, PE, COPD, DKA, ARF, appy, cholecystitis, CVA, Diverticulitis, Homicidal, [place] icidal, threat to staff... and all critical care pts) @ -No (Joni Felipe) - Lab Data Lab Results 10/06/24 10/06/24 10/06/24 Range/Units 18:02 18:02 19:11 WBC 10.96 H (4.50-10.00) 10*3/uL RBC 4.36 (4.10-5.20) 10*6/uL Hgb 11.8 L (12.0-15.0) g/dL Hct 35.8 L (37.2-46.3) % MCV 82.1 (80.0-97.0) fL MCH 27.1 (27.0-32.0) pg MCHC 33.0 (32.0-37.0) g/dL Plt Count 306 (140-440) 10*3/uL MPV 11.4 (9.5-12.2) fL Immature Gran % (Auto) 0.3 % Neutrophils % 58.9 % Lymphocytes % 30.8 % Monocytes % 7.8 % Eosinophils % 1.8 % Basophils % 0.4 % Immature Gran # 0.03 (0.00-0.04) 10*3/uL Neutrophils # 6.45 (1.80-7.70) 10*3/uL Lymphocytes # 3.38 (0.90-5.00) 10*3/uL Monocytes # 0.86 (0.20-1.00) 10*3/uL Eosinophils # 0.20 (0.04-0.35) 10*3/uL Basophils # 0.04 (0.00-0.10) 10*3/uL Sodium (137-145) mmol/L Potassium (3.5-5.1) mmol/L Chloride (98-107) mmol/L Carbon Dioxide (22-30) mmol/L Anion Gap mmol/L BUN (7-17) mg/dL Creatinine (0.52-1.04) mg/dL Est GFR (CKD-EPI)AfAm (>60 ml/min/1.73 sqM) Est GFR (CKD-EPI)NonAf (>60 ml/min/1.73 sqM) Glucose (74-99) mg/dL Calcium (8.4-10.2) mg/dL Total Bilirubin (0.2-1.3) mg/dL AST (14-36) U/L ALT (4-34) U/L Alkaline Phosphatase (38-126) U/L Total Protein (6.3-8.2) g/dL Albumin (3.5-5.0) g/dL HCG, Quant 98888.1 mIU/mL Urine Color Colorless Urine Appearance Clear (Clear) Urine pH 6.5 (5.0-8.0) Ur Specific [place] 1.020 (1.001-1.035) Urine Protein Negative (Negative) Urine Glucose (UA) Negative (Negative) Urine Ketones Negative (Negative) Urine Blood Negative (Negative) Urine Nitrite Negative (Negative) Urine Bilirubin Negative (Negative) Urine Urobilinogen <2.0 (<2.0) mg/dL Ur Leukocyte Esterase Negative (Negative) 10/06/24 Range/Units 19:11 WBC (4.50-10.00) 10*3/uL RBC (4.10-5.20) 10*6/uL Hgb (12.0-15.0) g/dL Hct (37.2-46.3) % MCV (80.0-97.0) fL MCH (27.0-32.0) pg MCHC (32.0-37.0) g/dL Plt Count (140-440) 10*3/uL MPV (9.5-12.2) fL Immature Gran % (Auto) % Neutrophils % % Lymphocytes % % Monocytes % % Eosinophils % % Basophils % % Immature Gran # (0.00-0.04) 10*3/uL Neutrophils # (1.80-7.70) 10*3/uL Lymphocytes # (0.90-5.00) 10*3/uL Monocytes # (0.20-1.00) 10*3/uL Eosinophils # (0.04-0.35) 10*3/uL Basophils # (0.00-0.10) 10*3/uL Sodium 137 (137-145) mmol/L Potassium 4.3 (3.5-5.1) mmol/L Chloride 104 (98-107) mmol/L Carbon Dioxide 19 L (22-30) mmol/L Anion Gap 14 mmol/L BUN 7 (7-17) mg/dL Creatinine 0.49 L (0.52-1.04) mg/dL Est GFR (CKD-EPI)AfAm >90 (>60 ml/min/1.73 sqM) Est GFR (CKD-EPI)NonAf >90 (>60 ml/min/1.73 sqM) Glucose 85 (74-99) mg/dL Calcium 9.6 (8.4-10.2) mg/dL Total Bilirubin 0.4 (0.2-1.3) mg/dL AST 44 H (14-36) U/L ALT 37 H (4-34) U/L Alkaline Phosphatase 56 (38-126) U/L Total Protein 7.5 (6.3-8.2) g/dL Albumin 3.9 (3.5-5.0) g/dL HCG, Quant mIU/mL Urine Color Urine Appearance (Clear) Urine pH (5.0-8.0) Ur Specific [place] (1.001-1.035) Urine Protein (Negative) Urine Glucose (UA) (Negative) Urine Ketones (Negative) Urine Blood (Negative) Urine Nitrite (Negative) Urine Bilirubin (Negative) Urine Urobilinogen (<2.0) mg/dL Ur Leukocyte Esterase (Negative) Disposition <Prisca Garner - Last Filed: 10/06/24 18:57> Is patient prescribed a controlled substance at d/c from ED?: No Time of Disposition: 20:37 <Joni Felipe - Last Filed: 10/06/24 20:38> Clinical Impression: Abdominal cramping affecting Disposition: HOME SELF-CARE Condition: Stable Additional Instructions: Please return to the Emergency Department if symptoms worsen or any other concerns. Referrals: Taras Ratliff Jr, DO [Primary Care Provider] - 1-2 days
[2024-10-06 19:47] LABS: Basophils # (A) 0.04 10*3/uL (0.00-0.10); Basophils % (A) 0.4 %; Eosinophils # (A) 0.20 10*3/uL (0.04-0.35); Eosinophils % (A) 1.8 %; HCT 35.8 % (37.2-46.3); HGB 11.8 g/dL (12.0-15.0); Lymphocytes # (A) 3.38 10*3/uL (0.90-5.00); Lymphocytes % (A) 30.8 %; MCH 27.1 pg (27.0-32.0); MCHC 33.0 g/dL (32.0-37.0); MCV 82.1 fL (80.0-97.0); Monocytes # (A) 0.86 10*3/uL (0.20-1.00); Monocytes % (A) 7.8 %; Neutrophils # (A) 6.45 10*3/uL (1.80-7.70); Neutrophils % (A) 58.9 %; Platelet Count 306 10*3/uL (140-440); RBC 4.36 10*6/uL (4.10-5.20); RDW 14.2 % (11.5-14.5); WBC 10.96 10*3/uL (4.50-10.00)
[2024-10-06 19:52] LABS: ALT 37 U/L (4-34); AST 44 U/L (14-36); African American GFR (CKD) >90 (>60 ml/min/1.73 sqM); Albumin 3.9 g/dL (3.5-5.0); Alkaline Phosphatase 56 U/L (38-126); Anion Gap 14 mmol/L; Blood Urea Nitrogen 7 mg/dL (7-17); Calcium 9.6 mg/dL (8.4-10.2); Carbon Dioxide 19 mmol/L (22-30); Chloride 104 mmol/L (98-107); Glucose 85 mg/dL (74-99); Non-African American GFR(CKD) >90 (>60 ml/min/1.73 sqM); Potassium 4.3 mmol/L (3.5-5.1); Sodium 137 mmol/L (137-145); Total Protein 7.5 g/dL (6.3-8.2)
--- NOTE | 2024-10-06 20:04 | US ---
EXAMINATION TYPE: Transabdominal DATE OF EXAM: 10/06/2024 7:30 PM COMPARISON: 08/30/24 CLINICAL INDICATION: Female, 34 years old with history of cramping; patient states cramping today. no bleeding or other symptoms TECHNIQUE: Transabdominal (TA) with grayscale and color Doppler imaging including first trimester pre gnancy. FINDINGS: EXAM MEASUREMENTS: GESTATIONAL AGE / DATING Physician Established: (11 weeks/0 days) EDC: 04/27/2025 Dates by LMP: (11 weeks/0 days) EDC: 04/27/2025 Dates by Current Scan for: (11 weeks/1 days) EDC: 04/26/2025 MATERNAL ANATOMY Uterus: 10.9 x 6.7 x 7.5cm Right Ovary: 2.5 x 2.1 x 2.1cm Left Ovary: 2.3 x 1.8 x 1.5cm Post CDS / Adnexa: wnl Presence of free fluid: not seen Presence of corpus luteal cyst: not seen Presence of subchorionic bleed: not seen GESTATION / SURVEY CRL: 4.18cm (11 weeks/1 days) Gestational Sac morphology: Normal Yolk Sac (normal less than 6mm): unable to visualize Cardiac Activity/Heart Rate: 159 bpm Rhythm: Normal IUP: Viable IUP Beta HcG (if available): Not available at this time IMPRESSION: 1. Single live intrauterine with calculated ultrasound age of 11 weeks 1 days by crown rump length. [facility], , 10/06/2024 8:02 PM
[2024-10-06 20:51] VITALS: BP 113/74; PULSE 78; RESP 18; TEMP 98.4
== END 2024-10-06 20:48 | disposition home or self-care (01) ==
LOC: EC 17:48
DX: O26.891 Other specified pregnancy related conditions, first trimester (principal); R10.9 Unspecified abdominal pain
CPT/HCPCS: 36415; 76801; 80053; 81003; 84702; 85025; 99284